=== PATIENT | female | born 1950 | race Caucasian/White ===

== ENCOUNTER 2017-10-15 19:21 | Emergency (ER) | payer OTHER ==
[~2017-10-15] VITALS: Ht 167.6 cm; Wt 90.7 kg
[2017-10-15 21:03] LABS: Basophils # (auto) 0.2 uL; Eosinophils # (auto) 0.1 uL; Eosinophils % (auto) 0.5 % (0.0-7.0); Mean Corpuscular Hemoglobin 23.4 pg (28.0-32.0); White Blood Cell 15.9 10^3/uL (4.4-10.8)
[2017-10-15 21:05] LABS: Basophils % (auto) 1.5 % (0.0-2.0); Hematocrit 34.1 % (36.0-46.0); Hemoglobin 10.8 g/dL (12.2-16.2); Lymphocytes # (auto) 1.8 uL; Mean Corpuscular Hgb Conc. 31.7 g/dL (32.0-36.0); Mean Corpuscular Volume 73.8 fL (80.0-100.0); Monocytes # (auto) 0.9 uL; Monocytes % (auto) 5.6 % (0.0-12.0); Neutrophils % (auto) 81.4 % (37.0-80.0); Platelet Count (auto) 350 10^3/uL (140-450); Red Blood Cells 4.62 10^6/uL (4.0-5.20); Red Cell Distribution Width 17.4 % (11.8-14.3)
[2017-10-15 21:44] LABS: Albumin 3.9 g/dL (3.4-5.0); BUN/Creatinine Ratio 11.5; Bilirubin, Total 0.6 mg/dL (0.2-1.0); Calcium 10.1 mg/dL (8.5-10.1); Potassium 3.6 mmol/L (3.5-5.1); Total Protein 8.5 g/dL (6.4-8.2)
[2017-10-16 02:46] VITALS: BP 160/99
[2017-10-16] MEDS ORDERED: NALBUPHINE HCL 10 MG/1ml INJECTION IV ONE (03:00)
[2017-10-16] MEDS ORDERED: SODIUM CHLORIDE 0.9% 1,000 ML IV ONE (03:00)
[2017-10-16] MEDS ORDERED: ONDANSETRON HCL 4 MG/2 ML VIAL IV ONE (03:00)
[2017-10-16] MEDS ORDERED: HYDROcodone-ACET 10/325MG TAB PO ONE (04:00)
== END 2017-10-16 05:42 | disposition home or self-care (01) ==
LOC: EDBD 19:21 → ER 19:24
DX: N20.0 Calculus of kidney (principal); K44.9 Diaphragmatic hernia without obstruction or gangrene; E11.9 Type 2 diabetes mellitus without complications; K21.9 Gastro-esophageal reflux disease without esophagitis; E78.5 Hyperlipidemia, unspecified
CPT/HCPCS: 36415; 74176; 80053; 82150; 83690; 84702; 85025; 96361; 96374; 96375; 99285; J2300; J2405; J7030

== ENCOUNTER 2019-08-10 10:13 | Emergency (ER) | payer OTHER ==
[~2019-08-10] VITALS: Ht 165.1 cm; Wt 77.1 kg
[2019-08-10 11:00] LABS: Basophils # (auto) 0 uL; Mean Corpuscular Hgb Conc. 30.9 g/dL (32.0-36.0); Monocytes # (auto) 0.4 uL; Neutrophils # (auto) 3.3 uL
[2019-08-10 11:02] LABS: Basophils % (auto) 0.9 % (0.0-2.0); Eosinophils # (auto) 0.1 uL; Eosinophils % (auto) 2.8 % (0.0-7.0); Hematocrit 34.2 % (36.0-46.0); Hemoglobin 10.6 g/dL (12.2-16.2); Lymphocytes # (auto) 1.2 uL; Lymphocytes % (auto) 23.4 % (10.0-50.0); Mean Corpuscular Hemoglobin 24.2 pg (28.0-32.0); Mean Corpuscular Volume 78.2 fL (80.0-100.0); Monocytes % (auto) 7.4 % (0.0-12.0); Neutrophils % (auto) 65.5 % (37.0-80.0); Nucleated Red Blood Cells % 0.2 %; Platelet Count (auto) 167 10^3/uL (140-450); Red Blood Cells 4.37 10^6/uL (4.0-5.20); Red Cell Distribution Width 16.5 % (11.8-14.3)
[2019-08-10 11:05] LABS: Albumin 2.9 g/dL (3.4-5.0); Calcium 8.9 mg/dL (8.5-10.1); Potassium 4.3 mmol/L (3.5-5.1)
[2019-08-10 11:08] LABS: BUN/Creatinine Ratio 14.7; Bilirubin, Total 0.3 mg/dL (0.2-1.0); Total Protein 7.1 g/dL (6.4-8.2)
[2019-08-10 12:53] LABS: Urine Bacteria NONE SEEN /hpf (None Seen); Urine Blood 1+ /uL (Negative); Urine Specific Gravity 1.014 (1.001-1.035); Urine WBC 682 /hpf (0 - 5); Urine WBC Clumps PRESENT /hpf (None Seen)
[2019-08-10] MEDS ORDERED: cefTRIAXone 1GM/50ML D5W 50 ML IV ONE (13:15)
[2019-08-10 15:00] VITALS: BP 102/45
== END 2019-08-10 16:47 | disposition home or self-care (01) ==
LOC: EDBD 10:13 → EDSEX 10:13 → ER 10:13 → EDUNIT# 10:13 → ER 16:47
DX: N39.0 Urinary tract infection, site not specified (principal); D64.9 Anemia, unspecified; R53.1 Weakness; I13.2 Hypertensive heart and chronic kidney disease with heart failure and with stage 5 chronic kidney disease, or end stage renal disease; E11.22 Type 2 diabetes mellitus with diabetic chronic kidney disease; N18.6 End stage renal disease; I50.9 Heart failure, unspecified; K21.9 Gastro-esophageal reflux disease without esophagitis; E78.5 Hyperlipidemia, unspecified
CPT/HCPCS: 36415; 71045; 80053; 81001; 83735; 84484; 85025; 96365; 96366; 99285; J0696; J7030

== ENCOUNTER 2021-03-17 11:54 | Inpatient (IN) | payer MEDICARE, OTHER ==
[~2021-03-17] VITALS: Ht 170.2 cm; Wt 99.0 kg
[2021-03-17 12:56] LABS: Basophils # (auto) 0 10 ^3/uL (0-0.2); Eosinophils # (auto) 0.2 10 ^3/uL (0-0.8); Eosinophils % (auto) 2.9 % (0.0-7.0); Hematocrit 38.1 % (36.0-46.0); Red Blood Cells 4.77 10^6/uL (4.0-5.20)
[2021-03-17 12:58] LABS: Basophils % (auto) 0.6 % (0.0-2.0); Hemoglobin 12.5 g/dL (12.2-16.2); Lymphocytes # (auto) 1.4 10 ^3/uL (0.4-5.4); Mean Corpuscular Hemoglobin 26.2 pg (28.0-32.0); Mean Corpuscular Hgb Conc. 32.9 g/dL (32.0-36.0); Mean Corpuscular Volume 79.7 fL (80.0-100.0); Monocytes # (auto) 0.5 10 ^3/uL (0-1.3); Neutrophils # (auto) 3.6 10 ^3/uL (1.6-8.6); Neutrophils % (auto) 63.5 % (37.0-80.0); Nucleated Red Blood Cells % 0.1 %; Red Cell Distribution Width 16.1 % (11.8-14.3); White Blood Cell 5.6 10^3/uL (4.4-10.8)
[2021-03-17 13:14] LABS: Anion Gap 5 (5-15); Blood Urea Nitrogen 15 mg/dL (7-18); Calcium 8.5 mg/dL (8.5-10.1); Carbon Dioxide 26 mmol/L (21-32); Chloride 101 mmol/L (98-107); Glucose 266 mg/dL (74-106); Magnesium 2.1 mg/dL (1.6-2.6); Potassium 3.9 mmol/L (3.5-5.1); Sodium 132 mmol/L (136-145)
[2021-03-17 13:20] LABS: Alanine Aminotransferase 45 U/L (13-56); Alkaline Phosphatase 85 U/L (45-117); Aspartate Aminotransferase 27 U/L (15-37); BUN/Creatinine Ratio 28.8; Bilirubin, Total 0.3 mg/dL (0.2-1.0); GFR African American 150 mL/min; GFR Non-African American 124 mL/min; Total Protein 6.8 g/dL (6.4-8.2)
[2021-03-17 14:21] LABS: Urine Bacteria NONE SEEN /hpf (None Seen); Urine Blood Negative /uL (Negative); Urine Specific Gravity 1.017 (1.001-1.035); Urine WBC 1 /hpf (0 - 5)
[2021-03-17] MEDS ORDERED: ONDANSETRON HCL 4 MG/2 ML VIAL IV ONE (14:45)
[2021-03-17] MEDS ORDERED: MORPHINE SULFATE 4 MG/ML SYR/VIAL IV ONE (14:45)
[2021-03-17] MEDS ORDERED: MORPHINE SULFATE INJECTION 2 MG/ML SYRG IV PRN (16:30)
[2021-03-17] MEDS ORDERED: NITROGLYCERIN 0.4 MG SL TAB SL PRN (16:30)
[2021-03-17] MEDS ORDERED: ACETAMINOPHEN 500 MG TAB PO PRN (16:30)
[2021-03-17] MEDS ORDERED: ONDANSETRON HCL 4 MG/2 ML VIAL IV PRN (16:30)
[2021-03-17] MEDS ORDERED: DEXTROSE (50%) 50ML SYRG IV PRN (16:30)
[2021-03-17] MEDS ORDERED: ALBUTEROL SULF 2.5 MG/0.5ML(0.5%) NEB SOLN NEB PRN (16:30)
[2021-03-17] MEDS ORDERED: IPRATROPIUM BROM 0.5 MG/2.5ML INH SOL NEB PRN (16:30)
[2021-03-17] MEDS ORDERED: DOCUSATE SOD 100 MG CAP PO PRN (16:30)
[2021-03-17] MEDS ORDERED: SODIUM CHLORIDE 0.9% 1,000 ML IV ONE (16:30)
[2021-03-17] MEDS ORDERED: IOHEXOL 300 MG/ML 100ML BOTTLE IJ ONE (17:02)
[2021-03-17] MEDS: InsuLIN REG 1unit/0.01ml Soln (100units/ml) SC SCH (19:30)
[2021-03-17] MEDS: ACCU-CHEK COMFORT CURVE STRIP VI SCH (19:33)
[2021-03-17] MEDS: MORPHINE SULFATE INJECTION 2 MG/ML SYRG IV PRN (20:12)
[2021-03-18 01:23] VITALS: BP 133/68
[2021-03-18] MEDS: ACCU-CHEK COMFORT CURVE STRIP VI SCH ×5 (03:49→22:49)
[2021-03-18] MEDS: InsuLIN REG 1unit/0.01ml Soln (100units/ml) SC SCH ×5 (04:30→22:00)
[2021-03-18 05:30] VITALS: BP 157/73
[2021-03-18 09:00] VITALS: BP 152/67
[2021-03-18] MEDS: levETIRAcetam 500 MG TAB PO SCH ×2 (09:43→22:54)
[2021-03-18] MEDS: HYDROcodone-ACET 5/325MG TAB PO PRN ×2 (09:43→20:28)
[2021-03-18] MEDS: MORPHINE SULFATE INJECTION 2 MG/ML SYRG IV PRN ×2 (11:00→15:35)
[2021-03-18 12:37] VITALS: BP 154/61
[2021-03-18 17:00] VITALS: BP 160/77
[2021-03-18] MEDS ORDERED: hydrALAZINE HCL 20 MG/ML VL IV PRN (17:15)
[2021-03-18] MEDS ORDERED: AML5T PO (17:34)
[2021-03-18] MEDS: amLODIPine BESYLATE 5 MG TAB PO SCH (18:25)
[2021-03-18] MEDS ORDERED: LEVE500T32 PO (20:07)
[2021-03-18] MEDS ORDERED: METO10TA3 PO (20:07)
[2021-03-18] MEDS ORDERED: SUCR1TAB PO (20:07)
[2021-03-18] MEDS ORDERED: GLIP10TA9 PO (20:07)
[2021-03-18] MEDS ORDERED: INSLANTI SC (20:07)
[2021-03-18] MEDS ORDERED: AMIO200T4 GT (20:07)
[2021-03-18] MEDS ORDERED: CLON0.1T PO (20:07)
[2021-03-18] MEDS ORDERED: OMEP20TA PO (20:07)
[2021-03-18] MEDS ORDERED: AMLO-489 PO (20:07)
[2021-03-18] MEDS ORDERED: ALPR0.25 GT (20:07)
[2021-03-18] MEDS ORDERED: BISM262C44 PO (20:08)
[2021-03-18] MEDS ORDERED: ACET-1156 PO (20:08)
[2021-03-18] MEDS ORDERED: DIPH25TA83 PO (20:08)
[2021-03-18 22:00] VITALS: BP 163/62
[2021-03-19 05:00] VITALS: BP 159/72
[2021-03-19] MEDS: ACCU-CHEK COMFORT CURVE STRIP VI SCH ×2 (07:00→11:30)
[2021-03-19] MEDS: InsuLIN REG 1unit/0.01ml Soln (100units/ml) SC SCH ×2 (07:00→11:30)
[2021-03-19 08:00] VITALS: BP 153/82
[2021-03-19 09:00] VITALS: BP 153/82
[2021-03-19] MEDS: levETIRAcetam 500 MG TAB PO SCH (09:17)
[2021-03-19] MEDS: amLODIPine BESYLATE 5 MG TAB PO SCH (09:19)
[2021-03-19] MEDS: HYDROcodone-ACET 5/325MG TAB PO PRN (09:21)
[2021-03-19] MEDS ORDERED: LISINOPRIL 20 MG TAB PO SCH (10:00)
[2021-03-20] MEDS ORDERED: PNEUMOCOCCAL VACC POLYS 25 MCG/0.5 ML VIAL IM ONE (10:00)
[2021-03-20] MEDS ORDERED: INFLUENZA QUAD 2020-2021 0.5 ML SYRG IM ONE (10:00)
== END 2021-03-19 13:15 | disposition home health service (06) | DRG 309 ==
LOC: EDBD 11:54 → ER 11:55 → TELE 16:36 → TELE-WESTW 22:50
PROVIDERS: ADMIT Nurse Practitioner Acute Care; ATTEND Internal Medicine
DX: I49.8 Other specified cardiac arrhythmias (principal); D68.59 Other primary thrombophilia; E87.1 Hypo-osmolality and hyponatremia; I48.92 Unspecified atrial flutter; E11.65 Type 2 diabetes mellitus with hyperglycemia; J44.9 Chronic obstructive pulmonary disease, unspecified; K21.9 Gastro-esophageal reflux disease without esophagitis; G40.909 Epilepsy, unspecified, not intractable, without status epilepticus; E11.22 Type 2 diabetes mellitus with diabetic chronic kidney disease; E66.9 Obesity, unspecified; E78.5 Hyperlipidemia, unspecified; I11.0 Hypertensive heart disease with heart failure; I48.0 Paroxysmal atrial fibrillation; R51.9 Headache, unspecified; Z20.822 Contact with and (suspected) exposure to COVID-19; I50.9 Heart failure, unspecified; Z51.5 Encounter for palliative care; Z79.01 Long term (current) use of anticoagulants; Z74.01 Bed confinement status; Z79.4 Long term (current) use of insulin; Z80.9 Family history of malignant neoplasm, unspecified; Z68.34 Body mass index [BMI] 34.0-34.9, adult
CPT/HCPCS: 36415; 70450; 71045; 74177; 80053; 81001; 82962; 83036; 83735; 84443; 84484; 85025; 87426; 93005; 93306; 96361; 96374; 96375; G0378; J1815; J2405

== ENCOUNTER 2021-03-27 10:25 | Inpatient (IN) | payer OTHER ==
[~2021-03-27] VITALS: Ht 149.9 cm; Wt 88.9 kg
[~2021-03-27 10:25] MED LIST: ACET-1156 PO; ALPR0.25 GT; AML5T PO; BISM262C44 PO; DIPH25TA83 PO; GLIP10TA9 PO; INSLANTI SC; LEVE500T32 PO; METO10TA3 PO; OMEP20TA PO; SUCR1TAB PO
[2021-03-27] MEDS ORDERED: SODIUM CHLORIDE 0.9% 1,000 ML IV ONE (10:30)
[2021-03-27 11:27] LABS: Eosinophils # (auto) 0.2 10 ^3/uL (0-0.8); Mean Corpuscular Hemoglobin 25.6 pg (28.0-32.0); Monocytes # (auto) 0.5 10 ^3/uL (0-1.3); Nucleated Red Blood Cells % 0.1 %; White Blood Cell 5.9 10^3/uL (4.4-10.8)
[2021-03-27 11:28] LABS: Basophils # (auto) 0 10 ^3/uL (0-0.2); Basophils % (auto) 0.5 % (0.0-2.0); Eosinophils % (auto) 3.2 % (0.0-7.0); Hematocrit 37.7 % (36.0-46.0); Lymphocytes # (auto) 1.4 10 ^3/uL (0.4-5.4); Lymphocytes % (auto) 23.2 % (10.0-50.0); Mean Corpuscular Hgb Conc. 31.9 g/dL (32.0-36.0); Mean Corpuscular Volume 80.3 fL (80.0-100.0); Monocytes % (auto) 8.2 % (0.0-12.0); Neutrophils # (auto) 3.8 10 ^3/uL (1.6-8.6); Neutrophils % (auto) 64.9 % (37.0-80.0); Red Blood Cells 4.69 10^6/uL (4.0-5.20)
[2021-03-27 11:46] LABS: Albumin 2.7 g/dL (3.4-5.0); Anion Gap 7 (5-15); Blood Urea Nitrogen 11 mg/dL (7-18); Calcium 9.1 mg/dL (8.5-10.1); Carbon Dioxide 29 mmol/L (21-32); Chloride 99 mmol/L (98-107); GFR African American 157 mL/min; GFR Non-African American 130 mL/min; Glucose 198 mg/dL (74-106); INR 0.98 (0.9-1.15); Partial Thromboplastin Time 23.1 sec (23.6-33.0); Sodium 135 mmol/L (136-145)
[2021-03-27 11:54] LABS: Alanine Aminotransferase 47 U/L (13-56); Alkaline Phosphatase 80 U/L (45-117); Aspartate Aminotransferase 36 U/L (15-37); Bilirubin, Total 0.3 mg/dL (0.2-1.0)
[2021-03-27 14:53] LABS: Urine Bacteria NONE SEEN /hpf (None Seen); Urine Blood TRACE /uL (Negative); Urine Specific Gravity 1.015 (1.001-1.035); Urine WBC 592 /hpf (0 - 5)
[2021-03-27] MEDS ORDERED: ONDANSETRON HCL 4 MG/2 ML VIAL IV ONE (15:30)
[2021-03-27] MEDS ORDERED: MORPHINE SULFATE 4 MG/ML SYR/VIAL IV ONE (15:30)
[2021-03-27] MEDS ORDERED: ALBUMIN 25% 50 ML IV ONE (22:30)
[2021-03-27] MEDS ORDERED: DEXTROSE (50%) 50ML SYRG IV PRN (22:30)
[2021-03-27] MEDS ORDERED: ACETAMINOPHEN 325 MG TAB PO PRN (22:30)
[2021-03-27] MEDS ORDERED: DOCUSATE SOD 100 MG CAP PO PRN (22:30)
[2021-03-27] MEDS ORDERED: HYDROcodone-ACET 5/325MG TAB PO PRN (22:30)
[2021-03-27] MEDS: MORPHINE SULFATE 4 MG/ML SYR/VIAL IV PRN (23:26)
[2021-03-27] MEDS ORDERED: MORPHINE SULFATE INJECTION 2 MG/ML SYRG IV PRN (23:45)
[2021-03-27] MEDS ORDERED: NITROGLYCERIN 0.4 MG SL TAB SL PRN (23:45)
[2021-03-28 01:25] VITALS: BP 117/47
[2021-03-28] MEDS ORDERED: PNEUMOCOCCAL VACC POLYS 25 MCG/0.5 ML VIAL IM ONE (02:00)
[2021-03-28] MEDS ORDERED: INFLUENZA QUAD 2020-2021 0.5 ML SYRG IM ONE (02:00)
[2021-03-28 05:00] VITALS: BP 130/46
[2021-03-28 05:36] LABS: Basophils % (auto) 0.8 % (0.0-2.0); Eosinophils # (auto) 0.2 10 ^3/uL (0-0.8); Lymphocytes # (auto) 1.7 10 ^3/uL (0.4-5.4); Neutrophils # (auto) 3.8 10 ^3/uL (1.6-8.6); White Blood Cell 6.3 10^3/uL (4.4-10.8)
[2021-03-28 05:42] LABS: Basophils # (auto) 0.1 10 ^3/uL (0-0.2); Eosinophils % (auto) 2.7 % (0.0-7.0); Hematocrit 35.8 % (36.0-46.0); Hemoglobin 11.7 g/dL (12.2-16.2); Mean Corpuscular Hemoglobin 26.3 pg (28.0-32.0); Mean Corpuscular Hgb Conc. 32.6 g/dL (32.0-36.0); Mean Corpuscular Volume 80.6 fL (80.0-100.0); Monocytes # (auto) 0.6 10 ^3/uL (0-1.3); Monocytes % (auto) 9.1 % (0.0-12.0); Neutrophils % (auto) 60.4 % (37.0-80.0); Red Blood Cells 4.44 10^6/uL (4.0-5.20); Red Cell Distribution Width 16.3 % (11.8-14.3)
[2021-03-28 06:02] LABS: Potassium 4.3 mmol/L (3.5-5.1)
[2021-03-28] MEDS: InsuLIN REG 1unit/0.01ml Soln (100units/ml) SC SCH ×4 (06:12→21:11)
[2021-03-28] MEDS: SODIUM CHLOR 0.9% PF (SALINE LOCK) 10ML VIAL/SYR IV SCH ×3 (06:12→20:59)
[2021-03-28] MEDS: ACCU-CHEK COMFORT CURVE STRIP VI SCH ×4 (06:12→21:00)
[2021-03-28] MEDS: MORPHINE SULFATE 4 MG/ML SYR/VIAL IV PRN ×7 (06:13→22:41)
[2021-03-28 06:15] LABS: Albumin 2.9 g/dL (3.4-5.0); Bilirubin, Total 0.2 mg/dL (0.2-1.0); Calcium 9.3 mg/dL (8.5-10.1); Total Protein 6.6 g/dL (6.4-8.2)
[2021-03-28] MEDS: FLEET ENEMA(ADULT) 135 ML PR ONE ×2 (07:00→10:33)
[2021-03-28 09:00] VITALS: BP 129/67
[2021-03-28] MEDS: cefTRIAXone 1GM/50ML D5W 50 ML IV SCH (09:25)
[2021-03-28] MEDS: ZINC SULFATE 220mg CAP or TAB PO SCH (09:26)
[2021-03-28] MEDS: FAMOTIDINE (10MG/ML) 2ML VL IV SCH ×2 (09:26→20:59)
[2021-03-28] MEDS: MULTIPLE VITAMIN TAB PO SCH (09:26)
[2021-03-28] MEDS: HEPARIN SODIUM (PORCINE) 5000 UNITS/ML 1ML VIAL SC SCH ×2 (09:27→21:00)
[2021-03-28] MEDS: ASCORBIC ACID 500 MG TAB PO SCH ×2 (09:27→20:59)
[2021-03-28 13:00] VITALS: BP 150/69
[2021-03-28] MEDS: LEVOTHYROXINE SODIUM 88 MCG TAB PO SCH (15:15)
[2021-03-28 16:35] VITALS: BP 147/57
[2021-03-28 22:00] VITALS: BP 118/47
[2021-03-29] MEDS: MORPHINE SULFATE 4 MG/ML SYR/VIAL IV PRN ×5 (03:47→20:42)
[2021-03-29 05:00] VITALS: BP 122/60
[2021-03-29] MEDS: ACCU-CHEK COMFORT CURVE STRIP VI SCH ×4 (06:10→21:18)
[2021-03-29] MEDS: InsuLIN REG 1unit/0.01ml Soln (100units/ml) SC SCH ×4 (06:10→21:19)
[2021-03-29] MEDS: SODIUM CHLOR 0.9% PF (SALINE LOCK) 10ML VIAL/SYR IV SCH ×3 (06:10→22:00)
[2021-03-29] MEDS: LEVOTHYROXINE SODIUM 88 MCG TAB PO SCH (06:10)
[2021-03-29] MEDS: cefTRIAXone 1GM/50ML D5W 50 ML IV SCH (08:23)
[2021-03-29 09:00] VITALS: BP 167/78
[2021-03-29] MEDS: ZINC SULFATE 220mg CAP or TAB PO SCH (09:44)
[2021-03-29] MEDS: HEPARIN SODIUM (PORCINE) 5000 UNITS/ML 1ML VIAL SC SCH ×2 (09:44→21:25)
[2021-03-29] MEDS: MULTIPLE VITAMIN TAB PO SCH (09:44)
[2021-03-29] MEDS: FAMOTIDINE (10MG/ML) 2ML VL IV SCH ×2 (09:44→21:17)
[2021-03-29] MEDS: ASCORBIC ACID 500 MG TAB PO SCH ×2 (09:45→21:17)
[2021-03-29] MEDS: ONDANSETRON HCL 4 MG/2 ML VIAL IV PRN ×3 (09:52→20:42)
[2021-03-29 13:00] VITALS: BP 162/81
[2021-03-29 17:04] VITALS: BP 134/63
[2021-03-29 22:00] VITALS: BP 143/62
[2021-03-30 05:00] VITALS: BP 159/98
[2021-03-30] MEDS: SODIUM CHLOR 0.9% PF (SALINE LOCK) 10ML VIAL/SYR IV SCH (06:00)
[2021-03-30] MEDS: LEVOTHYROXINE SODIUM 88 MCG TAB PO SCH (06:33)
[2021-03-30] MEDS: ACCU-CHEK COMFORT CURVE STRIP VI SCH ×2 (06:33→11:30)
[2021-03-30] MEDS: InsuLIN REG 1unit/0.01ml Soln (100units/ml) SC SCH ×2 (06:34→11:30)
[2021-03-30] MEDS: ONDANSETRON HCL 4 MG/2 ML VIAL IV PRN ×2 (06:35→10:29)
[2021-03-30] MEDS: MORPHINE SULFATE 4 MG/ML SYR/VIAL IV PRN ×2 (06:35→10:29)
[2021-03-30 09:00] VITALS: BP 145/73
[2021-03-30] MEDS: HEPARIN SODIUM (PORCINE) 5000 UNITS/ML 1ML VIAL SC SCH (10:00)
[2021-03-30 10:03] LABS: Free T4 (Free Thyroxine) 1.33 ng/dL (0.89-1.76)
[2021-03-30 10:05] LABS: Free T3 2.7 pg/mL (2.3-4.2)
[2021-03-30] MEDS: ASCORBIC ACID 500 MG TAB PO SCH (10:08)
[2021-03-30] MEDS: MULTIPLE VITAMIN TAB PO SCH (10:08)
[2021-03-30] MEDS: ZINC SULFATE 220mg CAP or TAB PO SCH (10:08)
[2021-03-30] MEDS: FAMOTIDINE (10MG/ML) 2ML VL IV SCH (10:09)
[2021-03-30] MEDS: cefTRIAXone 1GM/50ML D5W 50 ML IV SCH (10:09)
[2021-03-30 13:00] VITALS: BP 155/84
== END 2021-03-30 13:06 | disposition home health service (06) | DRG 308 ==
LOC: EDBD 10:25 → ER 10:25 → TELE 23:38 → TELE-CENTR 03-28 00:45
PROVIDERS: ADMIT Nurse Practitioner Family; ATTEND Internal Medicine
DX: R00.1 Bradycardia, unspecified (principal); L89.153 Pressure ulcer of sacral region, stage 3; G82.20 Paraplegia, unspecified; N39.0 Urinary tract infection, site not specified; E03.9 Hypothyroidism, unspecified; E11.65 Type 2 diabetes mellitus with hyperglycemia; Z20.822 Contact with and (suspected) exposure to COVID-19; E66.01 Morbid (severe) obesity due to excess calories; E78.5 Hyperlipidemia, unspecified; I50.9 Heart failure, unspecified; I48.91 Unspecified atrial fibrillation; F41.9 Anxiety disorder, unspecified; K21.9 Gastro-esophageal reflux disease without esophagitis; J44.9 Chronic obstructive pulmonary disease, unspecified; K74.60 Unspecified cirrhosis of liver; L89.149 Pressure ulcer of left lower back, unspecified stage; Z74.01 Bed confinement status; Z80.0 Family history of malignant neoplasm of digestive organs; Z82.49 Family history of ischemic heart disease and other diseases of the circulatory system; Z68.39 Body mass index [BMI] 39.0-39.9, adult; T46.2X5A Adverse effect of other antidysrhythmic drugs, initial encounter
CPT/HCPCS: 36415; 71045; 74176; 80053; 81001; 82140; 82962; 83605; 83880; 84439; 84443; 84481; 84484; 85025; 85610; 85730; 87040; 87081; 87086; 87088; 87186; 87426; 93005; 96361; 96365; 96375; G0378; J0696; J1815; J2405; J3490

== ENCOUNTER 2022-01-14 12:58 | Inpatient (IN) | payer OTHER, MEDICAID ==
[~2022-01-14] VITALS: Ht 154.9 cm; Wt 86.7 kg
[2022-01-14] MEDS ORDERED: SODIUM CHLORIDE 0.9% 1,000 ML IV ONE (13:00)
[2022-01-14] MEDS ORDERED: cefTRIAXone 1GM/50ML D5W 50 ML IV ONE (13:00)
[2022-01-14 13:58] LABS: Hemoglobin 11.3 g/dL (12.2-16.2); White Blood Cell 5.7 10^3/uL (4.4-10.8)
[2022-01-14 14:00] LABS: Hematocrit 35.9 % (36.0-46.0); Mean Corpuscular Hemoglobin 23.9 pg (28.0-32.0); Mean Corpuscular Hgb Conc. 31.6 g/dL (32.0-36.0); Mean Corpuscular Volume 75.6 fL (80.0-100.0); Red Blood Cells 4.75 10^6/uL (4.0-5.20)
[2022-01-14 14:02] LABS: Basophils % (manual) 0 (0.0-2.0); Blast Cells 0; Eosinophils % (manual) 0 (0-7); Metamyelocytes % 0; Myelocytes % 0; Promyelocytes % 0; Reactive Lymphocytes 0
[2022-01-14 14:04] LABS: Albumin 2.4 g/dL (3.4-5.0); Calcium 8.3 mg/dL (8.5-10.1); Potassium 5.3 mmol/L (3.5-5.1)
[2022-01-14 14:08] LABS: BUN/Creatinine Ratio 15.5; Bilirubin, Total 0.4 mg/dL (0.2-1.0); Total Protein 6.6 g/dL (6.4-8.2)
[2022-01-14 15:47] LABS: Urine Bacteria FEW /hpf (None Seen); Urine Blood 1+ /uL (Negative); Urine Specific Gravity 1.017 (1.001-1.035); Urine WBC 1549 /hpf (0 - 5); Urine WBC Clumps PRESENT /hpf (None Seen)
[2022-01-14 16:11] LABS: Band Neutrophils % (manual) 4; Lymphocytes % (manual) 20 (10.0-50.0); Monocytes % (manual) 10 (0-12)
[2022-01-14] MEDS ORDERED: SODIUM ZIRCONIUM CYCL 10 GM PAK PO ONE (17:00)
[2022-01-14] MEDS ORDERED: CALCIUM GLUC 1,000mg/50ml-NS 50 ML IV ONE (17:00)
[2022-01-14] MEDS ORDERED: FUROSEMIDE 20 MG/2 ML VIAL IV ONE (17:00)
[2022-01-14] MEDS ORDERED: ALBUTEROL SULF 2.5 MG/0.5ML(0.5%) NEB SOLN NEB ONE (17:00)
[2022-01-14] MEDS ORDERED: SODIUM BICARBONATE 8.4% INJ 50ML SYRINGE IV ONE (17:00)
[2022-01-14] MEDS ORDERED: MORPHINE SULFATE INJ 2 MG/ml SYRG IV PRN (17:15)
[2022-01-14] MEDS ORDERED: DEXTROSE (50%) 50ML SYRG IV PRN (17:15)
[2022-01-14] MEDS ORDERED: NITROGLYCERIN 0.4 MG SL TAB SL PRN (17:15)
[2022-01-14] MEDS ORDERED: ACETAMINOPHEN 500 MG TAB PO PRN (17:15)
[2022-01-14] MEDS ORDERED: FUROSEMIDE 40 MG/4 ML VIAL IV ONE (17:30)
[2022-01-14] MEDS: MORPHINE SULFATE INJ 2 MG/ml SYRG IV PRN (18:10)
[2022-01-14] MEDS: BUDESONIDE (INHALATION) 180 MCG IH IN SCH (18:35)
[2022-01-14 18:59] LABS: Albumin 2.6 g/dL (3.4-5.0); Calcium 8.7 mg/dL (8.5-10.1); Magnesium 1.4 mg/dL (1.6-2.6)
[2022-01-14 19:07] LABS: Thyroid Stimulating Hormone 2.18 uIU/mL (0.358-3.74)
[2022-01-14 19:08] LABS: BUN/Creatinine Ratio 15.5; Bilirubin, Total 0.2 mg/dL (0.2-1.0); CRP High Sensitivity 3.03 mg/dL (< 0.3); Total Protein 6.9 g/dL (6.4-8.2)
[2022-01-14] MEDS: ALBUTEROL SULF HFA 90MCG INH 200DOSE IN PRN (20:34)
[2022-01-14] MEDS ORDERED: POTASSIUM CHL 20 Meq TABLET PO ONE (21:15)
[2022-01-14] MEDS ORDERED: POTASSIUM CHL 20MEQ/100ML 100 ML IV ONE (21:15)
[2022-01-14] MEDS: ONDANSETRON HCL 4 MG/2 ML VIAL IV PRN (21:37)
[2022-01-14] MEDS: levETIRAcetam 500 MG TAB PO SCH (21:37)
[2022-01-14] MEDS: ACCU-CHEK COMFORT CURVE STRIP VI SCH (22:00)
[2022-01-14] MEDS: InsuLIN REG 1unit/0.01ml Soln (100units/ml) SC SCH (22:29)
[2022-01-14] MEDS ORDERED: CLON0.1T PO (22:48)
[2022-01-14 23:23] VITALS: BP 155/62
[2022-01-15] MEDS: MORPHINE SULFATE INJ 2 MG/ml SYRG IV PRN ×5 (00:31→22:23)
[2022-01-15 00:53] VITALS: BP 155/66
[2022-01-15 05:48] VITALS: BP 158/70
[2022-01-15 05:55] LABS: Hematocrit 33.5 % (36.0-46.0); Hemoglobin 10.6 g/dL (12.2-16.2); Mean Corpuscular Hemoglobin 23.9 pg (28.0-32.0); Mean Corpuscular Hgb Conc. 31.7 g/dL (32.0-36.0); Mean Corpuscular Volume 75.5 fL (80.0-100.0); Red Blood Cells 4.43 10^6/uL (4.0-5.20); Red Cell Distribution Width 15.9 % (11.8-14.3); White Blood Cell 5.6 10^3/uL (4.4-10.8)
[2022-01-15] MEDS: ONDANSETRON HCL 4 MG/2 ML VIAL IV PRN ×3 (05:56→20:23)
[2022-01-15 06:02] LABS: Basophils % (manual) 0 (0.0-2.0); Blast Cells 0; Promyelocytes % 0; Reactive Lymphocytes 0
[2022-01-15 06:03] LABS: Albumin 2.5 g/dL (3.4-5.0); Calcium 8.3 mg/dL (8.5-10.1); Potassium 3.6 mmol/L (3.5-5.1)
[2022-01-15 06:09] LABS: BUN/Creatinine Ratio 17.6; Bilirubin, Total 0.2 mg/dL (0.2-1.0)
[2022-01-15] MEDS: InsuLIN REG 1unit/0.01ml Soln (100units/ml) SC SCH ×4 (06:32→22:21)
[2022-01-15] MEDS: ACCU-CHEK COMFORT CURVE STRIP VI SCH ×4 (06:32→22:16)
[2022-01-15] MEDS: BUDESONIDE (INHALATION) 180 MCG IH IN SCH ×2 (06:39→22:02)
[2022-01-15] MEDS: ALBUTEROL SULF HFA 90MCG INH 200DOSE IN PRN ×2 (06:40→22:02)
[2022-01-15 07:34] LABS: Band Neutrophils % (manual) 6; Eosinophils % (manual) 1 (0-7); Lymphocytes % (manual) 25 (10.0-50.0); Metamyelocytes % 1; Monocytes % (manual) 8 (0-12); Myelocytes % 2
[2022-01-15 08:59] VITALS: BP 153/56
[2022-01-15] MEDS ORDERED: cefTRIAXone 1GM/50ML D5W 50 ML IV SCH (09:00)
[2022-01-15] MEDS ORDERED: AZITHROMYCIN 500MG/ 250ML 250 ML IV SCH (10:00)
[2022-01-15] MEDS ORDERED: ENOXAPARIN SOD 40 MG/0.4 ML SYRINGE SC SCH (10:00)
[2022-01-15] MEDS: levETIRAcetam 500 MG TAB PO SCH ×2 (10:21→22:15)
[2022-01-15] MEDS: DexAMETHasone SOD PHOS 10MG/1ML VIAL INJ IV SCH (10:21)
[2022-01-15] MEDS: amLODIPine BESYLATE 5 MG TAB PO SCH (10:22)
[2022-01-15] MEDS: ASCORBIC ACID 1,000 MG TAB PO SCH (10:22)
[2022-01-15] MEDS: CHOLECALCIFEROL (VITD3) 2,000 UNIT CAP/TAB PO SCH (10:22)
[2022-01-15] MEDS ORDERED: levoFLOXacin 500MG 100 ML IV SCH (12:00)
[2022-01-15] MEDS ORDERED: VANCOMYCIN PER PHARMACY 0 MG IV SCH (12:30)
[2022-01-15] MEDS ORDERED: VANCOMYCIN 1GM/250ML 250 ML IV ONE (12:30)
[2022-01-15 13:00] VITALS: BP 164/72
[2022-01-15] MEDS ORDERED: CLINDAMYCIN 600MG IV 50 ML IV SCH (14:00)
[2022-01-15 17:00] VITALS: BP 161/48
[2022-01-15] MEDS: SUCRALFATE 1 GM/10 ML ORAL SUSP PO SCH ×2 (17:45→22:15)
[2022-01-15] MEDS ORDERED: IOHEXOL 350 MG/ML 100ML IJ ONE (18:46)
[2022-01-15 22:00] VITALS: BP_SYST 165; BP_SYST 183; BP_DIAS 54; BP_DIAS 73
[2022-01-15] MEDS: PANTOPRAZOLE 40 MG TAB PO SCH (22:15)
[2022-01-16] MEDS: VANCOMYCIN 1GM/250ML 250 ML IV SCH ×3 (00:08→20:16)
[2022-01-16 05:00] VITALS: BP_SYST 158; BP_SYST 183; BP_DIAS 73; BP_DIAS 75
[2022-01-16] MEDS: ACCU-CHEK COMFORT CURVE STRIP VI SCH ×4 (06:29→22:07)
[2022-01-16] MEDS: SUCRALFATE 1 GM/10 ML ORAL SUSP PO SCH ×4 (06:29→21:21)
[2022-01-16] MEDS: InsuLIN REG 1unit/0.01ml Soln (100units/ml) SC SCH ×4 (06:31→22:08)
[2022-01-16] MEDS ORDERED: IOHEXOL 350 MG/ML 100ML IJ ONE (08:39)
[2022-01-16 09:18] VITALS: BP 171/84
[2022-01-16] MEDS: cefTRIAXone 1GM/50ML D5W 50 ML IV SCH (10:00)
[2022-01-16] MEDS: DexAMETHasone SOD PHOS 10MG/1ML VIAL INJ IV SCH (10:00)
[2022-01-16] MEDS: ASCORBIC ACID 1,000 MG TAB PO SCH (10:00)
[2022-01-16] MEDS: PANTOPRAZOLE 40 MG TAB PO SCH ×2 (10:00→21:21)
[2022-01-16] MEDS: CHOLECALCIFEROL (VITD3) 2,000 UNIT CAP/TAB PO SCH (10:00)
[2022-01-16] MEDS: amLODIPine BESYLATE 5 MG TAB PO SCH (10:00)
[2022-01-16] MEDS: levETIRAcetam 500 MG TAB PO SCH ×2 (10:00→21:21)
[2022-01-16] MEDS: ENOXAPARIN SOD 40 MG/0.4 ML SYRINGE SC SCH (10:00)
[2022-01-16] MEDS: ALBUTEROL SULF HFA 90MCG INH 200DOSE IN PRN ×2 (10:36→19:15)
[2022-01-16] MEDS: BUDESONIDE (INHALATION) 180 MCG IH IN SCH ×2 (10:36→19:15)
[2022-01-16] MEDS: MORPHINE SULFATE INJ 2 MG/ml SYRG IV PRN ×2 (10:45→21:33)
[2022-01-16 13:06] VITALS: BP 126/72
[2022-01-16 15:16] LABS: Hemoglobin 11.5 g/dL (12.2-16.2); Mean Corpuscular Hgb Conc. 30.6 g/dL (32.0-36.0); White Blood Cell 5.9 10^3/uL (4.4-10.8)
[2022-01-16 15:17] LABS: Hematocrit 37.4 % (36.0-46.0); Mean Corpuscular Hemoglobin 23.4 pg (28.0-32.0); Mean Corpuscular Volume 76.3 fL (80.0-100.0); Red Blood Cells 4.91 10^6/uL (4.0-5.20); Red Cell Distribution Width 16.4 % (11.8-14.3)
[2022-01-16 15:22] LABS: Basophils % (manual) 0 (0.0-2.0); Blast Cells 0; Eosinophils % (manual) 0 (0-7); Promyelocytes % 0; Reactive Lymphocytes 0
[2022-01-16 15:32] LABS: Calcium 8.5 mg/dL (8.5-10.1)
[2022-01-16 15:42] LABS: BUN/Creatinine Ratio 15.9; CRP High Sensitivity 1.32 mg/dL (< 0.3)
[2022-01-16 16:12] LABS: Band Neutrophils % (manual) 5; Lymphocytes % (manual) 12 (10.0-50.0); Metamyelocytes % 2; Monocytes % (manual) 3 (0-12); Myelocytes % 1
[2022-01-16 16:48] VITALS: BP 121/48
[2022-01-16] MEDS: ONDANSETRON HCL 4 MG/2 ML VIAL IV PRN (21:34)
[2022-01-16 22:00] VITALS: BP 151/61
[2022-01-17] MEDS: MORPHINE SULFATE INJ 2 MG/ml SYRG IV PRN ×4 (01:52→22:36)
[2022-01-17] MEDS: hydrALAZINE HCL 20 MG/ML VL IV PRN ×3 (02:28→22:52)
[2022-01-17 05:00] VITALS: BP 179/77
[2022-01-17] MEDS: VANCOMYCIN 1GM/250ML 250 ML IV SCH (06:00)
[2022-01-17] MEDS: ACCU-CHEK COMFORT CURVE STRIP VI SCH ×4 (06:28→21:11)
[2022-01-17] MEDS: InsuLIN REG 1unit/0.01ml Soln (100units/ml) SC SCH ×4 (06:30→21:20)
[2022-01-17] MEDS: SUCRALFATE 1 GM/10 ML ORAL SUSP PO SCH ×4 (06:36→21:10)
[2022-01-17 09:00] VITALS: BP 182/72
[2022-01-17 09:24] LABS: Hematocrit 37.3 % (36.0-46.0); Hemoglobin 11.5 g/dL (12.2-16.2); Mean Corpuscular Hemoglobin 23.5 pg (28.0-32.0); Mean Corpuscular Hgb Conc. 30.9 g/dL (32.0-36.0); Mean Corpuscular Volume 76.1 fL (80.0-100.0); Red Cell Distribution Width 15.6 % (11.8-14.3); White Blood Cell 7.6 10^3/uL (4.4-10.8)
[2022-01-17] MEDS: cefTRIAXone 1GM/50ML D5W 50 ML IV SCH (09:24)
[2022-01-17 09:25] LABS: CRP High Sensitivity 0.72 mg/dL (< 0.3); Calcium 9.1 mg/dL (8.5-10.1); Potassium 4.1 mmol/L (3.5-5.1)
[2022-01-17] MEDS: ONDANSETRON HCL 4 MG/2 ML VIAL IV PRN ×3 (09:25→22:30)
[2022-01-17 09:31] LABS: Basophils % (manual) 0 (0.0-2.0); Blast Cells 0; Metamyelocytes % 0; Myelocytes % 0; Promyelocytes % 0; Reactive Lymphocytes 0
[2022-01-17] MEDS: CHOLECALCIFEROL (VITD3) 2,000 UNIT CAP/TAB PO SCH (10:54)
[2022-01-17] MEDS: PANTOPRAZOLE 40 MG TAB PO SCH ×2 (10:54→21:10)
[2022-01-17] MEDS: ENOXAPARIN SOD 40 MG/0.4 ML SYRINGE SC SCH (10:55)
[2022-01-17] MEDS: ASCORBIC ACID 1,000 MG TAB PO SCH (10:55)
[2022-01-17] MEDS: levETIRAcetam 500 MG TAB PO SCH ×2 (10:55→21:10)
[2022-01-17] MEDS: DexAMETHasone SOD PHOS 10MG/1ML VIAL INJ IV SCH (10:56)
[2022-01-17] MEDS: amLODIPine BESYLATE 5 MG TAB PO SCH (11:02)
[2022-01-17] MEDS: ALBUTEROL SULF HFA 90MCG INH 200DOSE IN PRN ×2 (11:34→20:01)
[2022-01-17] MEDS: BUDESONIDE (INHALATION) 180 MCG IH IN SCH ×2 (11:34→20:01)
[2022-01-17 11:58] LABS: Band Neutrophils % (manual) 2; Eosinophils % (manual) 1 (0-7); Lymphocytes % (manual) 32 (10.0-50.0); Monocytes % (manual) 15 (0-12)
[2022-01-17 13:00] VITALS: BP 167/67
[2022-01-17] MEDS ORDERED: VANCOMYCIN 1GM/250ML 250 ML IV SCH (14:30)
[2022-01-17 17:00] VITALS: BP 129/60
[2022-01-17 22:00] VITALS: BP 163/61
[2022-01-18] VITALS (7 sets, daily range): BP systolic 146–184; BP diastolic 61–82
[2022-01-18] MEDS: hydrALAZINE HCL 20 MG/ML VL IV PRN (06:06)
[2022-01-18] MEDS: ACCU-CHEK COMFORT CURVE STRIP VI SCH ×4 (06:24→21:07)
[2022-01-18] MEDS: SUCRALFATE 1 GM/10 ML ORAL SUSP PO SCH ×4 (06:24→21:06)
[2022-01-18] MEDS: InsuLIN REG 1unit/0.01ml Soln (100units/ml) SC SCH ×4 (06:29→22:59)
[2022-01-18 06:58] LABS: Basophils # (auto) 0.1 10 ^3/uL (0-0.2); Eosinophils # (auto) 0 10 ^3/uL (0-0.8); Mean Corpuscular Volume 75.8 fL (80.0-100.0); Monocytes # (auto) 0.9 10 ^3/uL (0-1.3); Neutrophils % (auto) 72.8 % (37.0-80.0)
[2022-01-18 07:01] LABS: Basophils % (auto) 0.6 % (0.0-2.0); Eosinophils % (auto) 0.2 % (0.0-7.0); Hematocrit 33.7 % (36.0-46.0); Hemoglobin 10.9 g/dL (12.2-16.2); Lymphocytes # (auto) 1.6 10 ^3/uL (0.4-5.4); Mean Corpuscular Hemoglobin 24.5 pg (28.0-32.0); Mean Corpuscular Hgb Conc. 32.4 g/dL (32.0-36.0); Monocytes % (auto) 9.4 % (0.0-12.0); Nucleated Red Blood Cells % 0.3 %; Red Blood Cells 4.45 10^6/uL (4.0-5.20); White Blood Cell 9.6 10^3/uL (4.4-10.8)
[2022-01-18 07:14] LABS: Albumin 2.7 g/dL (3.4-5.0); Calcium 9.1 mg/dL (8.5-10.1); Potassium 3.9 mmol/L (3.5-5.1)
[2022-01-18 07:19] LABS: BUN/Creatinine Ratio 24.3; Bilirubin, Total 0.3 mg/dL (0.2-1.0); CRP High Sensitivity 0.38 mg/dL (< 0.3); Total Protein 6.6 g/dL (6.4-8.2)
[2022-01-18] MEDS: VANCOMYCIN 1GM/250ML 250 ML IV SCH ×2 (08:02→23:00)
[2022-01-18] MEDS: ONDANSETRON HCL 4 MG/2 ML VIAL IV PRN (08:03)
[2022-01-18] MEDS: MORPHINE SULFATE INJ 2 MG/ml SYRG IV PRN ×2 (08:03→20:50)
[2022-01-18] MEDS: ENOXAPARIN SOD 40 MG/0.4 ML SYRINGE SC SCH (10:00)
[2022-01-18] MEDS: amLODIPine BESYLATE 5 MG TAB PO SCH (10:00)
[2022-01-18] MEDS: CHOLECALCIFEROL (VITD3) 2,000 UNIT CAP/TAB PO SCH (10:00)
[2022-01-18] MEDS: PANTOPRAZOLE 40 MG TAB PO SCH ×2 (10:00→21:07)
[2022-01-18] MEDS: levETIRAcetam 500 MG TAB PO SCH ×2 (10:00→21:07)
[2022-01-18] MEDS: ASCORBIC ACID 1,000 MG TAB PO SCH (10:00)
[2022-01-18] MEDS: DexAMETHasone SOD PHOS 10MG/1ML VIAL INJ IV SCH (10:00)
[2022-01-18] MEDS: cefTRIAXone 1GM/50ML D5W 50 ML IV SCH (11:00)
[2022-01-18 13:11] LABS: Hepatitis A Ab IgM Negative; Hepatitis B Core IgM Negative
[2022-01-18] MEDS ORDERED: LEVO500T31 PO (13:14)
[2022-01-18] MEDS ORDERED: ALBUAER3 IN (13:14)
[2022-01-18] MEDS ORDERED: PANT40T PO (13:14)
[2022-01-18] MEDS ORDERED: SUCR1SUS10 PO (13:14)
[2022-01-18 13:15] LABS: Hepatitis C Antibody Positive (Negative)
[2022-01-18] MEDS: BUDESONIDE (INHALATION) 180 MCG IH IN SCH (19:28)
[2022-01-18] MEDS: ALBUTEROL SULF HFA 90MCG INH 200DOSE IN PRN (19:29)
[2022-01-18] MEDS ORDERED: cloNIDine HCL 0.1 MG TAB PO ONE (20:15)
[2022-01-18] MEDS ORDERED: DOXY-332 PO (23:46)
[2022-01-19 05:00] VITALS: BP 179/79
[2022-01-19] MEDS: hydrALAZINE HCL 20 MG/ML VL IV PRN (05:06)
[2022-01-19] MEDS: MORPHINE SULFATE INJ 2 MG/ml SYRG IV PRN ×3 (05:23→14:23)
[2022-01-19] MEDS: ACCU-CHEK COMFORT CURVE STRIP VI SCH ×3 (06:06→17:00)
[2022-01-19] MEDS: ONDANSETRON HCL 4 MG/2 ML VIAL IV PRN ×3 (06:06→14:23)
[2022-01-19 06:34] LABS: Mean Corpuscular Hemoglobin 23.8 pg (28.0-32.0)
[2022-01-19] MEDS: SUCRALFATE 1 GM/10 ML ORAL SUSP PO SCH ×3 (06:35→17:00)
[2022-01-19 06:36] LABS: Hemoglobin 12.4 g/dL (12.2-16.2); Mean Corpuscular Hgb Conc. 31.8 g/dL (32.0-36.0); Red Blood Cells 5.19 10^6/uL (4.0-5.20); Red Cell Distribution Width 15.9 % (11.8-14.3); White Blood Cell 9.2 10^3/uL (4.4-10.8)
[2022-01-19] MEDS: InsuLIN REG 1unit/0.01ml Soln (100units/ml) SC SCH ×3 (06:36→17:00)
[2022-01-19 06:52] LABS: Calcium 9.1 mg/dL (8.5-10.1); Potassium 4.3 mmol/L (3.5-5.1)
[2022-01-19 06:54] LABS: BUN/Creatinine Ratio 28.6; CRP High Sensitivity 0.24 mg/dL (< 0.3)
[2022-01-19 07:01] LABS: Band Neutrophils % (manual) 0; Basophils % (manual) 0 (0.0-2.0); Blast Cells 0; Eosinophils % (manual) 0 (0-7); Metamyelocytes % 0; Promyelocytes % 0; Reactive Lymphocytes 0
[2022-01-19] MEDS: BUDESONIDE (INHALATION) 180 MCG IH IN SCH (07:15)
[2022-01-19] MEDS: ALBUTEROL SULF HFA 90MCG INH 200DOSE IN PRN (07:15)
[2022-01-19 08:29] LABS: Lymphocytes % (manual) 30 (10.0-50.0); Monocytes % (manual) 12 (0-12); Myelocytes % 3
[2022-01-19 09:00] VITALS: BP 168/72
[2022-01-19] MEDS: PANTOPRAZOLE 40 MG TAB PO SCH (09:37)
[2022-01-19] MEDS: DexAMETHasone SOD PHOS 10MG/1ML VIAL INJ IV SCH (09:37)
[2022-01-19] MEDS: cefTRIAXone 1GM/50ML D5W 50 ML IV SCH (09:37)
[2022-01-19] MEDS: levETIRAcetam 500 MG TAB PO SCH (09:37)
[2022-01-19] MEDS: ASCORBIC ACID 1,000 MG TAB PO SCH (09:38)
[2022-01-19] MEDS: amLODIPine BESYLATE 5 MG TAB PO SCH (09:38)
[2022-01-19] MEDS: ENOXAPARIN SOD 40 MG/0.4 ML SYRINGE SC SCH (09:38)
[2022-01-19] MEDS: CHOLECALCIFEROL (VITD3) 2,000 UNIT CAP/TAB PO SCH (09:38)
[2022-01-19] MEDS ORDERED: LINE1TAB6 PO (12:35)
[2022-01-19 13:00] VITALS: BP 153/89
[2022-01-19 14:36] VITALS: BP 149/88
[2022-01-19] MEDS ORDERED: VANCOMYCIN 1GM/250ML 250 ML IV SCH ×2 (15:45→18:00)
[2022-01-19 16:45] VITALS: BP 129/64
== END 2022-01-19 17:15 | disposition home health service (06) | DRG 177 ==
LOC: EDBD 12:58 → ER 12:58 → TELE 17:03 → TELE-WESTW 22:48
PROVIDERS: ADMIT Registered Nurse; ATTEND Internal Medicine
PROC: 05HF33Z Insertion of Infusion Device into Left Cephalic Vein, Percutaneous Approach (ICD-10-PCS; principal; 2022-01-15)
PROC: B54NZZA Ultrasonography of Left Upper Extremity Veins, Guidance (ICD-10-PCS; 2022-01-15)
DX: U07.1 COVID-19 (principal); E43 Unspecified severe protein-calorie malnutrition; J12.82 Pneumonia due to coronavirus disease 2019; J96.01 Acute respiratory failure with hypoxia; N18.6 End stage renal disease; N39.0 Urinary tract infection, site not specified; L03.116 Cellulitis of left lower limb; I13.2 Hypertensive heart and chronic kidney disease with heart failure and with stage 5 chronic kidney disease, or end stage renal disease; J44.0 Chronic obstructive pulmonary disease with (acute) lower respiratory infection; R78.81 Bacteremia; L89.152 Pressure ulcer of sacral region, stage 2; E11.621 Type 2 diabetes mellitus with foot ulcer; D63.8 Anemia in other chronic diseases classified elsewhere; Z74.01 Bed confinement status; E87.5 Hyperkalemia; E87.6 Hypokalemia; I48.91 Unspecified atrial fibrillation; B96.20 Unspecified Escherichia coli [E. coli] as the cause of diseases classified elsewhere; B19.20 Unspecified viral hepatitis C without hepatic coma; K74.60 Unspecified cirrhosis of liver; L60.3 Nail dystrophy; E11.22 Type 2 diabetes mellitus with diabetic chronic kidney disease; E11.628 Type 2 diabetes mellitus with other skin complications; E78.5 Hyperlipidemia, unspecified; R53.81 Other malaise; G40.909 Epilepsy, unspecified, not intractable, without status epilepticus; G89.29 Other chronic pain; R19.7 Diarrhea, unspecified; B95.7 Other staphylococcus as the cause of diseases classified elsewhere; L97.529 Non-pressure chronic ulcer of other part of left foot with unspecified severity; I50.9 Heart failure, unspecified; K21.9 Gastro-esophageal reflux disease without esophagitis; K76.0 Fatty (change of) liver, not elsewhere classified; Z80.0 Family history of malignant neoplasm of digestive organs; Z82.49 Family history of ischemic heart disease and other diseases of the circulatory system; Z90.49 Acquired absence of other specified parts of digestive tract; Z90.710 Acquired absence of both cervix and uterus
CPT/HCPCS: 36415; 51702; 71045; 71275; 73630; 73700; 73701; 74176; 76705; 80048; 80053; 80061; 80074; 80202; 81001; 82306; 82728; 82962; 83036; 83605; 83615; 83735; 83880; 84132; 84443; 84484; 85007; 85025; 85027; 85379; 86141; 87040; 87077; 87086; 87088; 87186; 93005; 93970; 94640; 96365; 96366; 96367; 96372; 96375; 97110; G0378; J0696; J1100; J1815; J2405; J3480

== ENCOUNTER 2022-04-11 05:57 | Inpatient (IN) | payer OTHER, MEDICAID ==
[~2022-04-11] VITALS: Ht 154.9 cm; Wt 85.0 kg
[~2022-04-11 05:57] MED LIST changes: +ALBUAER3 IN; +CLON0.1T PO; +LEVO500T31 PO; +LINE1TAB6 PO; +PANT40T PO; +SUCR1SUS10 PO
[2022-04-11 07:32] LABS: Basophils # (auto) 0 10 ^3/uL (0-0.2); Basophils % (auto) 0.4 % (0.0-2.0); Eosinophils # (auto) 0 10 ^3/uL (0-0.8); Eosinophils % (auto) 0.3 % (0.0-7.0); Hematocrit 33.4 % (36.0-46.0); Hemoglobin 10.4 g/dL (12.2-16.2); Lymphocytes # (auto) 0.9 10 ^3/uL (0.4-5.4); Lymphocytes % (auto) 10.4 % (10.0-50.0); Mean Corpuscular Hemoglobin 25.1 pg (28.0-32.0); Mean Corpuscular Hgb Conc. 31.2 g/dL (32.0-36.0); Mean Corpuscular Volume 80.4 fL (80.0-100.0); Monocytes # (auto) 0.5 10 ^3/uL (0-1.3); Monocytes % (auto) 6.4 % (0.0-12.0); Neutrophils # (auto) 6.7 10 ^3/uL (1.6-8.6); Neutrophils % (auto) 82.5 % (37.0-80.0); Red Blood Cells 4.15 10^6/uL (4.0-5.20); Red Cell Distribution Width 16.1 % (11.8-14.3); White Blood Cell 8.1 10^3/uL (4.4-10.8)
[2022-04-11 07:53] LABS: Albumin 3.2 g/dL (3.4-5.0); BUN/Creatinine Ratio 23.9; Calcium 8.8 mg/dL (8.5-10.1); Potassium 4.4 mmol/L (3.5-5.1)
[2022-04-11 07:56] LABS: Bilirubin, Total 0.3 mg/dL (0.2-1.0); Total Protein 6.8 g/dL (6.4-8.2)
[2022-04-11] MEDS ORDERED: SODIUM CHLORIDE 0.9% 500 ML IVB ONE (08:15)
[2022-04-11] MEDS ORDERED: SODIUM CHLORIDE 0.9% 1,000 ML IV ONE (08:15)
[2022-04-11 08:53] LABS: Blood Alcohol < 3.0 mg/dL (0-5); Magnesium 1.8 mg/dL (1.6-2.6)
[2022-04-11 08:57] LABS: Urine Bacteria NONE SEEN /hpf (None Seen); Urine Blood TRACE /uL (Negative); Urine Mucus FEW (None Seen); Urine Specific Gravity 1.017 (1.001-1.035); Urine WBC 19 /hpf (0 - 5)
[2022-04-11 09:27] LABS: Alcohol, Urine < 3.0 mg/dL (0-10); Amphetamine Screen, Urine NEGATIVE (NEGATIVE); Barbiturate Scree,Urine NEGATIVE (NEGATIVE); Benzodiazephine Screen, Urine NEGATIVE (NEGATIVE); Cannabinoid Screen, Urine NEGATIVE (NEGATIVE); Cocaine Screen, Urine NEGATIVE (NEGATIVE); Opiate Scree,Urine NEGATIVE (NEGATIVE); Phencyclidine Screen, Urine NEGATIVE (NEGATIVE)
[2022-04-11] MEDS ORDERED: LORazepam 2MG/ML-1ML VIAL IV ONE (15:30)
[2022-04-11] MEDS ORDERED: ACETAMINOPHEN 650 MG RECT SUPP PR ONE (20:15)
[2022-04-11] MEDS ORDERED: DEXTROSE (50%) 50ML SYRG IV PRN (23:15)
[2022-04-11] MEDS ORDERED: ONDANSETRON HCL 4 MG/2 ML VIAL IV PRN (23:15)
[2022-04-11] MEDS ORDERED: hydrALAZINE HCL 20 MG/ML VL IV PRN (23:15)
[2022-04-11] MEDS ORDERED: levoFLOXacin 500MG 100 ML IV SCH (23:15)
[2022-04-11] MEDS ORDERED: ACETAMINOPHEN 650 MG RECT SUPP PR PRN (23:15)
[2022-04-11] MEDS ORDERED: HYDROcodone-ACET 5/325MG TAB PO PRN (23:15)
[2022-04-11] MEDS ORDERED: MORPHINE SULFATE INJ 2 MG/ml SYRG IV PRN (23:15)
[2022-04-11] MEDS ORDERED: NITROGLYCERIN 0.4 MG SL TAB SL PRN (23:15)
[2022-04-12] VITALS: BP 132/56
[2022-04-12] MEDS: PANTOPRAZOLE 40 MG/10 ML VIAL INJ IV SCH ×2 (00:10→11:07)
[2022-04-12] MEDS: ALBUTEROL SULF 2.5 MG/0.5ML(0.5%) NEB SOLN NEB SCH ×6 (02:08→21:35)
[2022-04-12 06:30] LABS: Albumin 2.7 g/dL (3.4-5.0); Potassium 3.8 mmol/L (3.5-5.1)
[2022-04-12 06:38] LABS: Bilirubin, Total 0.3 mg/dL (0.2-1.0); Calcium 8.4 mg/dL (8.5-10.1); Total Protein 5.9 g/dL (6.4-8.2)
[2022-04-12 06:42] LABS: Basophils # (auto) 0 10 ^3/uL (0-0.2); Basophils % (auto) 0.7 % (0.0-2.0); Hemoglobin 9.6 g/dL (12.2-16.2); Lymphocytes # (auto) 1.6 10 ^3/uL (0.4-5.4); Monocytes # (auto) 0.6 10 ^3/uL (0-1.3); Neutrophils # (auto) 4.3 10 ^3/uL (1.6-8.6); Nucleated Red Blood Cells % 0.1 %
[2022-04-12 06:45] LABS: Eosinophils # (auto) 0.1 10 ^3/uL (0-0.8); Eosinophils % (auto) 0.9 % (0.0-7.0); Hematocrit 30.2 % (36.0-46.0); Mean Corpuscular Hemoglobin 25.8 pg (28.0-32.0); Mean Corpuscular Hgb Conc. 31.8 g/dL (32.0-36.0); Mean Corpuscular Volume 81.2 fL (80.0-100.0); Monocytes % (auto) 9.5 % (0.0-12.0); Neutrophils % (auto) 64.9 % (37.0-80.0); Red Blood Cells 3.73 10^6/uL (4.0-5.20); Red Cell Distribution Width 16.2 % (11.8-14.3); White Blood Cell 6.6 10^3/uL (4.4-10.8)
[2022-04-12] MEDS: InsuLIN REG 1unit/0.01ml Soln (100units/ml) SC SCH ×3 (06:58→18:19)
[2022-04-12] MEDS: ACCU-CHEK COMFORT CURVE STRIP VI SCH ×3 (06:59→18:19)
[2022-04-12] MEDS ORDERED: ASPirin 81 mg TAB PO SCH (10:00)
[2022-04-12] MEDS ORDERED: ENOXAPARIN SOD 100 MG/1 ML SYRINGE SC SCH (10:00)
[2022-04-12] MEDS ORDERED: ACETAMINOPHEN 325 MG TAB PO PRN (10:30)
[2022-04-12] MEDS ORDERED: ALB5IS NEB (12:19)
[2022-04-12] MEDS ORDERED: LEVO500T31 PO (12:19)
[2022-04-12] MEDS ORDERED: ATORVASTATIN 20 MG TAB PO SCH (18:00)
[2022-04-12 20:00] VITALS: BP 126/49
== END 2022-04-12 21:00 | disposition home health service (06) | DRG 91 ==
LOC: EDUNIT# 05:57 → ER 05:57 → EDBD 05:57 → TELE 23:38
PROVIDERS: ADMIT Nurse Practitioner Family; ATTEND Nurse Practitioner Family
DX: G92.8 Other toxic encephalopathy (principal); I21.4 Non-ST elevation (NSTEMI) myocardial infarction; J18.9 Pneumonia, unspecified organism; J96.21 Acute and chronic respiratory failure with hypoxia; N18.6 End stage renal disease; I13.2 Hypertensive heart and chronic kidney disease with heart failure and with stage 5 chronic kidney disease, or end stage renal disease; J44.0 Chronic obstructive pulmonary disease with (acute) lower respiratory infection; Z68.43 Body mass index [BMI] 50.0-59.9, adult; N39.0 Urinary tract infection, site not specified; R44.3 Hallucinations, unspecified; G40.909 Epilepsy, unspecified, not intractable, without status epilepticus; I48.91 Unspecified atrial fibrillation; I50.9 Heart failure, unspecified; E66.01 Morbid (severe) obesity due to excess calories; K21.9 Gastro-esophageal reflux disease without esophagitis; F41.9 Anxiety disorder, unspecified; R53.81 Other malaise; E11.22 Type 2 diabetes mellitus with diabetic chronic kidney disease; E11.65 Type 2 diabetes mellitus with hyperglycemia; K74.60 Unspecified cirrhosis of liver; Z80.0 Family history of malignant neoplasm of digestive organs; Z82.49 Family history of ischemic heart disease and other diseases of the circulatory system; Z74.01 Bed confinement status
CPT/HCPCS: 36415; 51702; 70450; 71045; 71250; 74176; 80053; 80061; 80307; 80320; 81001; 82140; 82962; 83036; 83605; 83735; 83880; 84484; 85025; 87040; 87086; 87426; 93005; 93306; 94640; 96361; 96365; 96375; C9113; G0378; J1815; J1956; J7060

== ENCOUNTER 2022-06-29 10:06 | Inpatient (IN) | payer OTHER, MEDICAID ==
[~2022-06-29] VITALS: Ht 180.3 cm; Wt 82.1 kg
[~2022-06-29 10:06] MED LIST changes: +ALB5IS NEB; -BISM262C44 PO; -LEVE500T32 PO; -LINE1TAB6 PO; -SUCR1TAB PO
[2022-06-29] MEDS ORDERED: IPRATROPIUM BROM 0.5 MG/2.5ML INH SOL NEB ONE (10:30)
[2022-06-29] MEDS ORDERED: ALBUTEROL SULF 2.5 MG/0.5ML(0.5%) NEB SOLN NEB ONE (10:30)
[2022-06-29] MEDS ORDERED: ALBUTEROL MEDNEB 2.5 mg/3ml NEB ONE (10:42)
[2022-06-29 11:16] LABS: Basophils # (auto) 0 10 ^3/uL (0-0.2); Eosinophils # (auto) 0.1 10 ^3/uL (0-0.8); Eosinophils % (auto) 0.6 % (0.0-7.0); Hemoglobin 10.6 g/dL (12.2-16.2); Nucleated Red Blood Cells % 0.1 %; Red Cell Distribution Width 15.5 % (11.8-14.3)
[2022-06-29 11:20] LABS: Basophils % (auto) 0.4 % (0.0-2.0); Lymphocytes # (auto) 1.4 10 ^3/uL (0.4-5.4); Lymphocytes % (auto) 15.2 % (10.0-50.0); Mean Corpuscular Hemoglobin 24.5 pg (28.0-32.0); Mean Corpuscular Hgb Conc. 32.2 g/dL (32.0-36.0); Mean Corpuscular Volume 76.3 fL (80.0-100.0); Monocytes # (auto) 0.6 10 ^3/uL (0-1.3); Monocytes % (auto) 6.6 % (0.0-12.0); Neutrophils % (auto) 77.2 % (37.0-80.0); Red Blood Cells 4.32 10^6/uL (4.0-5.20)
[2022-06-29] MEDS ORDERED: SODIUM CHLORIDE 0.9% 1,000 ML IV ONE (11:30)
[2022-06-29] MEDS ORDERED: cefTRIAXone 1GM/50ML D5W 50 ML IV ONE (11:30)
[2022-06-29 11:32] LABS: Albumin 3.6 g/dL (3.4-5.0); Calcium 8.8 mg/dL (8.5-10.1); Potassium 4.4 mmol/L (3.5-5.1)
[2022-06-29 11:35] LABS: BUN/Creatinine Ratio 21.7; Bilirubin, Total 0.3 mg/dL (0.2-1.0)
[2022-06-29 13:01] LABS: Urine Bacteria NONE SEEN /hpf (None Seen); Urine Blood 1+ /uL (Negative); Urine Specific Gravity 1.016 (1.001-1.035); Urine WBC 330 /hpf (0 - 5)
[2022-06-29 13:03] LABS: Alcohol, Urine < 3.0 mg/dL (0-10); Amphetamine Screen, Urine NEGATIVE (NEGATIVE); Barbiturate Scree,Urine NEGATIVE (NEGATIVE); Benzodiazephine Screen, Urine NEGATIVE (NEGATIVE); Cannabinoid Screen, Urine NEGATIVE (NEGATIVE); Cocaine Screen, Urine NEGATIVE (NEGATIVE); Opiate Scree,Urine NEGATIVE (NEGATIVE); Phencyclidine Screen, Urine NEGATIVE (NEGATIVE)
[2022-06-29] MEDS ORDERED: ONDANSETRON HCL 4 MG/2 ML VIAL IV PRN (20:45)
[2022-06-29] MEDS ORDERED: hydrALAZINE HCL 10 MG TAB PO PRN (20:45)
[2022-06-29] MEDS ORDERED: DEXTROSE (50%) 50ML SYRG IV PRN (21:00)
[2022-06-29] MEDS: SODIUM CHLORIDE 0.9% 1,000 ML IV SCH (22:32)
[2022-06-29] MEDS: HYDROcodone-ACET 5/325MG TAB PO PRN (22:36)
[2022-06-29] MEDS: ACCU-CHEK COMFORT CURVE STRIP VI SCH (23:04)
[2022-06-29] MEDS: InsuLIN REG 1unit/0.01ml Soln (100units/ml) SC SCH (23:08)
[2022-06-29] MEDS: PIPERACILLIN-TAZOB 3.375GM 100 ML IV SCH (23:17)
[2022-06-30] MEDS ORDERED: ALBUTEROL MEDNEB 2.5 mg/3ml NEB ONE ×4 (00:59→13:39)
[2022-06-30] MEDS ORDERED: SODIUM CHLORIDE 0.9% 1,000 ML IV SCH (01:00)
[2022-06-30 01:02] VITALS: BP 150/76
[2022-06-30] MEDS: ALBUTEROL SULF 2.5 MG/0.5ML(0.5%) NEB SOLN NEB PRN ×2 (01:26→05:47)
[2022-06-30] MEDS ORDERED: LORazepam 2MG/ML-1ML VIAL IV ONE (02:30)
[2022-06-30] MEDS ORDERED: ACETAMINOPHEN 650 MG RECT SUPP PR PRN (05:00)
[2022-06-30] MEDS ORDERED: levETIRAcetam 500 MG/5ML INJ IV ONE (05:16)
[2022-06-30] MEDS: IPRATROPIUM BROM 0.5 MG/2.5ML INH SOL NEB SCH ×5 (06:33→22:00)
[2022-06-30] MEDS: ALBUTEROL SULF 2.5 MG/0.5ML(0.5%) NEB SOLN NEB SCH ×5 (06:33→22:00)
[2022-06-30] MEDS ORDERED: methylPREDNISolone SOD SUCC 40 MG/ML VL IV ONE (06:45)
[2022-06-30 06:50] LABS: Anion Gap 10 (5-15); BUN/Creatinine Ratio 18.5; Blood Urea Nitrogen 25 mg/dL (7-18); Calcium 8.8 mg/dL (8.5-10.1); Carbon Dioxide 25 mmol/L (21-32); Chloride 101 mmol/L (98-107); GFR African American 50 mL/min; GFR Non-African American 41 mL/min; Glucose 182 mg/dL (74-106); Potassium 4.9 mmol/L (3.5-5.1); Sodium 136 mmol/L (136-145)
[2022-06-30 06:52] LABS: Basophils # (auto) 0.1 10 ^3/uL (0-0.2); Lymphocytes # (auto) 1.6 10 ^3/uL (0.4-5.4); Monocytes # (auto) 0.9 10 ^3/uL (0-1.3); Nucleated Red Blood Cells % 0.2 %; Red Cell Distribution Width 15.7 % (11.8-14.3)
[2022-06-30 06:55] LABS: Basophils % (auto) 0.7 % (0.0-2.0); Eosinophils # (auto) 0.1 10 ^3/uL (0-0.8); Eosinophils % (auto) 0.4 % (0.0-7.0); Hemoglobin 10.2 g/dL (12.2-16.2); Lymphocytes % (auto) 13.7 % (10.0-50.0); Mean Corpuscular Hemoglobin 24.5 pg (28.0-32.0); Mean Corpuscular Hgb Conc. 30.9 g/dL (32.0-36.0); Mean Corpuscular Volume 79.1 fL (80.0-100.0); Monocytes % (auto) 7.5 % (0.0-12.0); Neutrophils # (auto) 9.3 10 ^3/uL (1.6-8.6); Neutrophils % (auto) 77.7 % (37.0-80.0); Red Blood Cells 4.17 10^6/uL (4.0-5.20)
[2022-06-30] MEDS: ACCU-CHEK COMFORT CURVE STRIP VI SCH ×4 (07:00→23:08)
[2022-06-30] MEDS: InsuLIN REG 1unit/0.01ml Soln (100units/ml) SC SCH ×4 (07:00→23:20)
[2022-06-30] MEDS ORDERED: methylPREDNISolone SOD SUCC 40 MG/ML VL IV SCH (10:00)
[2022-06-30] MEDS: FAMOTIDINE 20 MG TAB PO SCH (10:00)
[2022-06-30] MEDS: PIPERACILLIN-TAZOB 3.375GM 100 ML IV SCH (10:23)
[2022-06-30] MEDS: SODIUM CHLORIDE 0.9% 1,000 ML IV SCH ×2 (10:24→17:32)
[2022-06-30] MEDS ORDERED: HALOPERIDOL LACTATE 5 MG/ML INJ VIAL IM PRN (10:30)
[2022-06-30] MEDS ORDERED: LORazepam 2MG/ML-1ML VIAL IV PRN (10:30)
[2022-06-30] MEDS: MEROPENEM 1GM IVPB 100 ML IV SCH (13:15)
[2022-06-30] MEDS: ACETAMINOPHEN 325 MG TAB PO PRN (17:44)
[2022-06-30] MEDS: HYDROcodone-ACET 5/325MG TAB PO PRN (20:07)
[2022-06-30 21:47] VITALS: BP 111/46
[2022-06-30 22:00] VITALS: BP 111/46
[2022-07-01] MEDS: MEROPENEM 1GM IVPB 100 ML IV SCH (01:36)
[2022-07-01] MEDS: HYDROcodone-ACET 5/325MG TAB PO PRN ×3 (01:36→16:20)
[2022-07-01] MEDS ORDERED: ALBUTEROL MEDNEB 2.5 mg/3ml NEB ONE ×4 (02:09→18:18)
[2022-07-01] MEDS: IPRATROPIUM BROM 0.5 MG/2.5ML INH SOL NEB SCH ×4 (02:45→14:40)
[2022-07-01] MEDS: SODIUM CHLORIDE 0.9% 1,000 ML IV SCH ×2 (02:45→12:44)
[2022-07-01] MEDS: ALBUTEROL SULF 2.5 MG/0.5ML(0.5%) NEB SOLN NEB SCH ×4 (02:45→14:40)
[2022-07-01 05:00] VITALS: BP 150/66
[2022-07-01] MEDS: ACETAMINOPHEN 325 MG TAB PO PRN ×2 (05:42→11:47)
[2022-07-01] MEDS: ACCU-CHEK COMFORT CURVE STRIP VI SCH ×3 (05:43→17:00)
[2022-07-01] MEDS: InsuLIN REG 1unit/0.01ml Soln (100units/ml) SC SCH ×3 (05:43→17:00)
[2022-07-01 06:35] LABS: BUN/Creatinine Ratio 26.9; Calcium 8.6 mg/dL (8.5-10.1); Potassium 4.2 mmol/L (3.5-5.1)
[2022-07-01 06:45] LABS: Basophils # (auto) 0 10 ^3/uL (0-0.2); Basophils % (auto) 0.4 % (0.0-2.0); Eosinophils # (auto) 0.1 10 ^3/uL (0-0.8); Eosinophils % (auto) 1.2 % (0.0-7.0); Hematocrit 28.9 % (36.0-46.0); Hemoglobin 9.3 g/dL (12.2-16.2); Lymphocytes # (auto) 1.8 10 ^3/uL (0.4-5.4); Lymphocytes % (auto) 20.9 % (10.0-50.0); Mean Corpuscular Hemoglobin 24.9 pg (28.0-32.0); Mean Corpuscular Hgb Conc. 32.1 g/dL (32.0-36.0); Mean Corpuscular Volume 77.5 fL (80.0-100.0); Monocytes # (auto) 0.9 10 ^3/uL (0-1.3); Monocytes % (auto) 9.9 % (0.0-12.0); Neutrophils # (auto) 5.8 10 ^3/uL (1.6-8.6); Neutrophils % (auto) 67.6 % (37.0-80.0); Nucleated Red Blood Cells % 0.1 %; Red Blood Cells 3.73 10^6/uL (4.0-5.20); White Blood Cell 8.6 10^3/uL (4.4-10.8)
[2022-07-01] MEDS: FAMOTIDINE 20 MG TAB PO SCH (08:37)
[2022-07-01] MEDS ORDERED: LEVO500T31 PO (08:54)
[2022-07-01 08:59] VITALS: BP 105/62
[2022-07-01 10:24] VITALS: BP 105/60
[2022-07-01] MEDS ORDERED: MEROPENEM 1GM IVPB 100 ML IV SCH (16:00)
[2022-07-01 16:10] VITALS: BP 150/71
== END 2022-07-01 18:54 | disposition home health service (06) | DRG 70 ==
LOC: ER 10:06 → EDBD 10:06 → TELE 20:43 → TELE-WESTW 06-30 21:17
PROVIDERS: ADMIT Nurse Practitioner Family; ATTEND Nurse Practitioner Family
DX: G93.41 Metabolic encephalopathy (principal); N17.0 Acute kidney failure with tubular necrosis; N39.0 Urinary tract infection, site not specified; E66.01 Morbid (severe) obesity due to excess calories; F41.9 Anxiety disorder, unspecified; I48.0 Paroxysmal atrial fibrillation; Z20.822 Contact with and (suspected) exposure to COVID-19; E78.5 Hyperlipidemia, unspecified; F29 Unspecified psychosis not due to a substance or known physiological condition; G40.409 Other generalized epilepsy and epileptic syndromes, not intractable, without status epilepticus; I50.9 Heart failure, unspecified; J44.9 Chronic obstructive pulmonary disease, unspecified; Z74.01 Bed confinement status; Z79.899 Other long term (current) drug therapy; Z68.25 Body mass index [BMI] 25.0-25.9, adult; Z80.0 Family history of malignant neoplasm of digestive organs; Z82.49 Family history of ischemic heart disease and other diseases of the circulatory system; Z90.710 Acquired absence of both cervix and uterus; Z99.81 Dependence on supplemental oxygen; I11.0 Hypertensive heart disease with heart failure; E11.9 Type 2 diabetes mellitus without complications
CPT/HCPCS: 36415; 36600; 70450; 71045; 80048; 80053; 80307; 81001; 82140; 82805; 82962; 83605; 83880; 84484; 85025; 87040; 87086; 87426; 93005; 94640; 95819; 96365; 96366; 96367; 96368; 96372; G0378; J0696; J1815; J2185; J2543; J7060

== ENCOUNTER 2022-07-14 10:07 | Inpatient (IN) | payer OTHER, MEDICAID ==
[~2022-07-14] VITALS: Ht 154.9 cm; Wt 84.3 kg
[~2022-07-14 10:07] MED LIST changes: -ALB5IS NEB; -SUCR1SUS10 PO
[2022-07-14] MEDS ORDERED: cloNIDine HCL 0.1 MG TAB PO ONE (10:45)
[2022-07-14] MEDS ORDERED: cefTRIAXone 1GM/50ML D5W 50 ML IV ONE (10:45)
[2022-07-14 11:00] LABS: Basophils # (auto) 0 10 ^3/uL (0-0.2); Basophils % (auto) 0.4 % (0.0-2.0); Eosinophils # (auto) 0 10 ^3/uL (0-0.8); Eosinophils % (auto) 0.4 % (0.0-7.0); Hematocrit 32.6 % (36.0-46.0); Hemoglobin 10.3 g/dL (12.2-16.2); Lymphocytes # (auto) 1.3 10 ^3/uL (0.4-5.4); Lymphocytes % (auto) 12.7 % (10.0-50.0); Mean Corpuscular Hemoglobin 24.3 pg (28.0-32.0); Mean Corpuscular Hgb Conc. 31.7 g/dL (32.0-36.0); Mean Corpuscular Volume 76.8 fL (80.0-100.0); Monocytes # (auto) 0.6 10 ^3/uL (0-1.3); Monocytes % (auto) 6.2 % (0.0-12.0); Neutrophils # (auto) 8.1 10 ^3/uL (1.6-8.6); Neutrophils % (auto) 80.3 % (37.0-80.0); Nucleated Red Blood Cells % 0.1 %; Red Blood Cells 4.24 10^6/uL (4.0-5.20); Red Cell Distribution Width 16.4 % (11.8-14.3); White Blood Cell 10.1 10^3/uL (4.4-10.8)
[2022-07-14 11:10] LABS: Alanine Aminotransferase 24 U/L (13-56); Albumin 3.2 g/dL (3.4-5.0); Anion Gap 6 (5-15); Aspartate Aminotransferase 19 U/L (15-37); BUN/Creatinine Ratio 20.9; Blood Urea Nitrogen 23 mg/dL (7-18); Calcium 8.8 mg/dL (8.5-10.1); Carbon Dioxide 30 mmol/L (21-32); Chloride 100 mmol/L (98-107); GFR African American 63 mL/min; GFR Non-African American 52 mL/min; Glucose 263 mg/dL (74-106); Potassium 5.4 mmol/L (3.5-5.1); Sodium 136 mmol/L (136-145)
[2022-07-14 11:13] LABS: Alkaline Phosphatase 93 U/L (45-117); Bilirubin, Total 0.3 mg/dL (0.2-1.0); Total Protein 6.4 g/dL (6.4-8.2)
[2022-07-14] MEDS ORDERED: ALBUTEROL SULF 2.5 MG/0.5ML(0.5%) NEB SOLN NEB ONE (12:45)
[2022-07-14] MEDS ORDERED: SODIUM ZIRCONIUM CYCL 10 GM PAK PO ONE (12:45)
[2022-07-14] MEDS ORDERED: ONDANSETRON HCL 4 MG/2 ML VIAL IV ONE (12:45)
[2022-07-14] MEDS ORDERED: CALCIUM GLUC 1,000mg/50ml-NS 50 ML IV ONE (12:45)
[2022-07-14] MEDS ORDERED: DEXTROSE (50%) 50ML SYRG IV ONE (12:45)
[2022-07-14] MEDS ORDERED: FUROSEMIDE 20 MG/2 ML VIAL IV ONE (12:45)
[2022-07-14] MEDS ORDERED: InsuLIN REG 1unit/0.01ml Soln (100units/ml) IV ONE (12:45)
[2022-07-14] MEDS ORDERED: ENOXAPARIN SOD 100 MG/1 ML SYRINGE SC ONE (12:45)
[2022-07-14] MEDS ORDERED: LORazepam 2MG/ML-1ML VIAL IV ONE (12:45)
[2022-07-14] MEDS ORDERED: MORPHINE SULFATE INJ 2 MG/ml SYRG IV ONE (12:45)
[2022-07-14] MEDS ORDERED: SODIUM BICARBONATE 8.4% INJ 50ML SYRINGE IV ONE (12:45)
[2022-07-14] MEDS ORDERED: NITROGLYCERIN 0.4 MG SL TAB SL PRN (15:45)
[2022-07-14] MEDS ORDERED: MORPHINE SULFATE INJ 2 MG/ml SYRG IV PRN (15:45)
[2022-07-14] MEDS: cloNIDine HCL 0.1 MG TAB PO SCH ×2 (18:18→23:25)
[2022-07-14 19:07] LABS: Urine Bacteria FEW /hpf (None Seen); Urine Blood Negative /uL (Negative); Urine Specific Gravity 1.015 (1.001-1.035); Urine WBC 15 /hpf (0 - 5)
[2022-07-14 22:14] VITALS: BP 110/54
[2022-07-14] MEDS: PANTOPRAZOLE 40 MG TAB PO SCH (23:20)
[2022-07-14] MEDS: glipiZIDE 5 MG TAB PO SCH (23:21)
[2022-07-14] MEDS: HYDROcodone-ACET 5/325MG TAB PO PRN (23:22)
[2022-07-15] VITALS (36 sets, daily range): BP systolic 57–147; BP diastolic 27–90
[2022-07-15] MEDS: ALBUTEROL SULF 2.5 MG/0.5ML(0.5%) NEB SOLN NEB SCH ×4 (00:03→18:10)
[2022-07-15] MEDS ORDERED: ALBUTEROL MEDNEB 2.5 mg/3ml NEB ONE ×3 (00:03→17:53)
[2022-07-15] MEDS: IPRATROPIUM BROM 0.5 MG/2.5ML INH SOL NEB SCH ×4 (00:03→18:09)
[2022-07-15] MEDS: diphenhdrAMINE HCL 25 MG CAP PO SCH ×2 (00:23→22:00)
[2022-07-15] MEDS: ALPRAZolam 0.25 MG TAB GT SCH ×3 (00:23→21:26)
[2022-07-15] MEDS: cloNIDine HCL 0.1 MG TAB PO SCH ×4 (05:38→21:14)
[2022-07-15] MEDS ORDERED: SULF400T11 PO (09:02)
[2022-07-15] MEDS ORDERED: LOSA100T22 PO (09:02)
[2022-07-15] MEDS ORDERED: BUSP10TA90 PO (09:02)
[2022-07-15] MEDS ORDERED: LEVO50TA7 PO (09:02)
[2022-07-15] MEDS ORDERED: LEVE500T32 PO (09:02)
[2022-07-15] MEDS ORDERED: TRAM50TA2 PO (09:02)
[2022-07-15] MEDS ORDERED: SUCR1SUS5 PO (09:02)
[2022-07-15] MEDS ORDERED: CITA10TA8 PO (09:02)
[2022-07-15] MEDS: ACETAMINOPHEN 325 MG TAB PO PRN (09:55)
[2022-07-15 10:11] LABS: Eosinophils # (auto) 0.1 10 ^3/uL (0-0.8); Hemoglobin 10.1 g/dL (12.2-16.2)
[2022-07-15 10:14] LABS: Basophils # (auto) 0 10 ^3/uL (0-0.2); Basophils % (auto) 0.4 % (0.0-2.0); Eosinophils % (auto) 0.6 % (0.0-7.0); Hematocrit 31.8 % (36.0-46.0); Lymphocytes # (auto) 1.3 10 ^3/uL (0.4-5.4); Lymphocytes % (auto) 11.9 % (10.0-50.0); Mean Corpuscular Hemoglobin 24.2 pg (28.0-32.0); Mean Corpuscular Hgb Conc. 31.7 g/dL (32.0-36.0); Mean Corpuscular Volume 76.5 fL (80.0-100.0); Monocytes # (auto) 0.9 10 ^3/uL (0-1.3); Monocytes % (auto) 8.2 % (0.0-12.0); Neutrophils # (auto) 8.4 10 ^3/uL (1.6-8.6); Neutrophils % (auto) 78.9 % (37.0-80.0); Nucleated Red Blood Cells % 0.1 %; Red Blood Cells 4.15 10^6/uL (4.0-5.20); Red Cell Distribution Width 16.5 % (11.8-14.3); White Blood Cell 10.7 10^3/uL (4.4-10.8)
[2022-07-15 10:28] LABS: Albumin 3.4 g/dL (3.4-5.0); Calcium 8.7 mg/dL (8.5-10.1)
[2022-07-15 10:31] LABS: BUN/Creatinine Ratio 18.8; Bilirubin, Total 0.3 mg/dL (0.2-1.0); Total Protein 6.5 g/dL (6.4-8.2)
[2022-07-15 10:37] LABS: Potassium 5.9 mmol/L (3.5-5.1)
[2022-07-15] MEDS: glipiZIDE 5 MG TAB PO SCH ×2 (11:10→21:14)
[2022-07-15] MEDS: PANTOPRAZOLE 40 MG TAB PO SCH ×2 (11:10→21:26)
[2022-07-15] MEDS: amLODIPine BESYLATE 5 MG TAB PO SCH (11:11)
[2022-07-15] MEDS: ENOXAPARIN SOD 40 MG/0.4 ML SYRINGE SC SCH (11:11)
[2022-07-15] MEDS: INSULIN LANTUS (GLARGINE) 1 /0.01ml (100units/ml) SC SCH (11:22)
[2022-07-15] MEDS ORDERED: DEXTROSE (50%) 50ML SYRG IV ONE (11:30)
[2022-07-15] MEDS ORDERED: SODIUM ZIRCONIUM CYCL 10 GM PAK PO ONE (11:30)
[2022-07-15] MEDS ORDERED: CALCIUM GLUC 1,000mg/50ml-NS 50 ML IV ONE (11:30)
[2022-07-15] MEDS ORDERED: InsuLIN REG 1unit/0.01ml Soln (100units/ml) IV ONE (11:30)
[2022-07-15] MEDS: SODIUM CHLORIDE 0.9% 1,000 ML IV SCH ×3 (12:28→22:06)
[2022-07-15] MEDS: FUROSEMIDE 40 MG/4 ML VIAL IV SCH (13:42)
[2022-07-15] MEDS ORDERED: VANCOMYCIN PER PHARMACY 0 MG IV SCH (15:15)
[2022-07-15 15:19] LABS: Urine Bacteria MOD /hpf (None Seen); Urine Blood TRACE /uL (Negative); Urine Hyaline Cast MANY /lpf (0 - 2); Urine Specific Gravity 1.014 (1.001-1.035); Urine WBC 294 /hpf (0 - 5); Urine WBC Clumps PRESENT /hpf (None Seen)
[2022-07-15 15:23] LABS: Protein, Urine 75.4 mg/dL (0.0-11.9)
[2022-07-15] MEDS ORDERED: VANCOMYCIN 1GM/250ML 250 ML IV ONE (15:30)
[2022-07-15] MEDS ORDERED: NOREPINEPHRINE 8 MG/250ML KIT 0 ML IV ONE (16:10)
[2022-07-15] MEDS: NOREPINEPHRINE 8 MG/250ML KIT 250 ML IV SCH (16:15)
[2022-07-15 16:17] LABS: Calcium 9.2 mg/dL (8.5-10.1); Potassium 5.1 mmol/L (3.5-5.1)
[2022-07-15 16:26] LABS: BUN/Creatinine Ratio 18.4
[2022-07-15] MEDS: CEFEPIME 2 GM in SODIUM CHL 0.9% 50 ML IV SCH (21:27)
[2022-07-16] VITALS (86 sets, daily range): BP systolic 102–161; BP diastolic 35–83
[2022-07-16 03:56] LABS: Basophils # (auto) 0 10 ^3/uL (0-0.2); Basophils % (auto) 0.5 % (0.0-2.0); Eosinophils # (auto) 0.1 10 ^3/uL (0-0.8); Lymphocytes # (auto) 1.8 10 ^3/uL (0.4-5.4); Monocytes # (auto) 0.6 10 ^3/uL (0-1.3); Neutrophils # (auto) 4.6 10 ^3/uL (1.6-8.6)
[2022-07-16 03:58] LABS: INR 0.98 (0.9-1.15); Partial Thromboplastin Time 27.4 sec (24.6-33.4)
[2022-07-16 03:59] LABS: Albumin 2.6 g/dL (3.4-5.0); BUN/Creatinine Ratio 22.7; Calcium 8.7 mg/dL (8.5-10.1); Eosinophils % (auto) 1.8 % (0.0-7.0); Hematocrit 27.9 % (36.0-46.0); Hemoglobin 8.8 g/dL (12.2-16.2); Lymphocytes % (auto) 24.7 % (10.0-50.0); Mean Corpuscular Hemoglobin 24.4 pg (28.0-32.0); Mean Corpuscular Hgb Conc. 31.4 g/dL (32.0-36.0); Mean Corpuscular Volume 77.7 fL (80.0-100.0); Monocytes % (auto) 8.8 % (0.0-12.0); Neutrophils % (auto) 64.2 % (37.0-80.0); Potassium 4.2 mmol/L (3.5-5.1); Red Blood Cells 3.59 10^6/uL (4.0-5.20); Red Cell Distribution Width 16.8 % (11.8-14.3); White Blood Cell 7.1 10^3/uL (4.4-10.8)
[2022-07-16 04:00] LABS: Bilirubin, Total 0.2 mg/dL (0.2-1.0); Total Protein 5.9 g/dL (6.4-8.2)
[2022-07-16] MEDS: MORPHINE SULFATE INJ 2 MG/ml SYRG IV PRN ×4 (05:25→20:16)
[2022-07-16] MEDS: cloNIDine HCL 0.1 MG TAB PO SCH ×4 (05:34→22:00)
[2022-07-16] MEDS ORDERED: ALBUTEROL MEDNEB 2.5 mg/3ml NEB ONE ×2 (05:51→11:31)
[2022-07-16] MEDS: IPRATROPIUM BROM 0.5 MG/2.5ML INH SOL NEB SCH ×3 (05:54→19:01)
[2022-07-16] MEDS: ALBUTEROL SULF 2.5 MG/0.5ML(0.5%) NEB SOLN NEB SCH ×3 (05:54→19:02)
[2022-07-16] MEDS: CEFEPIME 2 GM in SODIUM CHL 0.9% 50 ML IV SCH ×2 (10:00→22:00)
[2022-07-16] MEDS: ENOXAPARIN SOD 40 MG/0.4 ML SYRINGE SC SCH (10:00)
[2022-07-16] MEDS: glipiZIDE 5 MG TAB PO SCH ×2 (10:00→22:00)
[2022-07-16] MEDS ORDERED: VANCOMYCIN 500 MG in D5W 5% 100 ML IV ONE ×2 (10:00→13:45)
[2022-07-16] MEDS: INSULIN LANTUS (GLARGINE) 1 /0.01ml (100units/ml) SC SCH (10:00)
[2022-07-16] MEDS: amLODIPine BESYLATE 5 MG TAB PO SCH (10:00)
[2022-07-16] MEDS: PANTOPRAZOLE 40 MG TAB PO SCH ×2 (10:00→22:01)
[2022-07-16] MEDS: FUROSEMIDE 40 MG/4 ML VIAL IV SCH (11:38)
[2022-07-16] MEDS: SODIUM CHLORIDE 0.9% 1,000 ML IV SCH (11:39)
[2022-07-16] MEDS: HYDROcodone-ACET 5/325MG TAB PO PRN (14:58)
[2022-07-16] MEDS: NOREPINEPHRINE 8 MG/250ML KIT 250 ML IV SCH (16:15)
[2022-07-16] MEDS: diphenhdrAMINE HCL 25 MG CAP PO SCH (21:59)
[2022-07-16] MEDS: ALPRAZolam 0.25 MG TAB GT SCH (21:59)
[2022-07-16] MEDS: ONDANSETRON HCL 4 MG/2 ML VIAL IV PRN (23:11)
[2022-07-17] VITALS (91 sets, daily range): BP systolic 116–173; BP diastolic 35–102
[2022-07-17] MEDS: MORPHINE SULFATE INJ 2 MG/ml SYRG IV PRN ×6 (00:23→22:04)
[2022-07-17 04:50] LABS: Potassium 4.6 mmol/L (3.5-5.1)
[2022-07-17 04:56] LABS: Albumin 2.8 g/dL (3.4-5.0); BUN/Creatinine Ratio 21.4; Calcium 8.5 mg/dL (8.5-10.1); Phosphorus 3.2 mg/dL (2.5-4.90)
[2022-07-17] MEDS: ONDANSETRON HCL 4 MG/2 ML VIAL IV PRN ×4 (06:09→22:03)
[2022-07-17] MEDS: cloNIDine HCL 0.1 MG TAB PO SCH ×4 (06:11→22:03)
[2022-07-17] MEDS ORDERED: ALBUTEROL MEDNEB 2.5 mg/3ml NEB ONE ×2 (06:17→18:03)
[2022-07-17] MEDS: ALBUTEROL SULF 2.5 MG/0.5ML(0.5%) NEB SOLN NEB SCH ×3 (06:21→18:24)
[2022-07-17] MEDS: IPRATROPIUM BROM 0.5 MG/2.5ML INH SOL NEB SCH ×3 (06:21→18:24)
[2022-07-17] MEDS: PANTOPRAZOLE 40 MG TAB PO SCH ×2 (09:14→22:03)
[2022-07-17] MEDS: ENOXAPARIN SOD 40 MG/0.4 ML SYRINGE SC SCH (09:14)
[2022-07-17] MEDS: amLODIPine BESYLATE 5 MG TAB PO SCH (09:14)
[2022-07-17] MEDS: INSULIN LANTUS (GLARGINE) 1 /0.01ml (100units/ml) SC SCH (09:15)
[2022-07-17] MEDS: glipiZIDE 5 MG TAB PO SCH ×2 (10:00→22:08)
[2022-07-17] MEDS: CEFEPIME 2 GM in SODIUM CHL 0.9% 50 ML IV SCH ×2 (10:00→22:02)
[2022-07-17] MEDS ORDERED: VANCOMYCIN 1GM/250ML 250 ML IV ONE (14:00)
[2022-07-17] MEDS: NOREPINEPHRINE 8 MG/250ML KIT 250 ML IV SCH (16:15)
[2022-07-17] MEDS: HYDROcodone-ACET 5/325MG TAB PO PRN (21:13)
[2022-07-17] MEDS: ALPRAZolam 0.25 MG TAB GT SCH (22:02)
[2022-07-17] MEDS: diphenhdrAMINE HCL 25 MG CAP PO SCH (22:03)
[2022-07-18] VITALS (24 sets, daily range): BP systolic 98–165; BP diastolic 34–64
[2022-07-18] MEDS: ONDANSETRON HCL 4 MG/2 ML VIAL IV PRN ×2 (04:31→17:30)
[2022-07-18] MEDS: MORPHINE SULFATE INJ 2 MG/ml SYRG IV PRN ×5 (04:32→21:51)
[2022-07-18] MEDS: cloNIDine HCL 0.1 MG TAB PO SCH ×4 (06:00→21:16)
[2022-07-18] MEDS ORDERED: ALBUTEROL MEDNEB 2.5 mg/3ml NEB ONE ×3 (06:00→18:29)
[2022-07-18] MEDS: ALBUTEROL SULF 2.5 MG/0.5ML(0.5%) NEB SOLN NEB SCH ×3 (06:43→18:34)
[2022-07-18] MEDS: IPRATROPIUM BROM 0.5 MG/2.5ML INH SOL NEB SCH ×3 (06:43→18:34)
[2022-07-18] MEDS: ENOXAPARIN SOD 40 MG/0.4 ML SYRINGE SC SCH (09:55)
[2022-07-18] MEDS: CEFEPIME 2 GM in SODIUM CHL 0.9% 50 ML IV SCH ×2 (09:55→21:51)
[2022-07-18] MEDS: PANTOPRAZOLE 40 MG TAB PO SCH ×2 (09:59→21:15)
[2022-07-18] MEDS: glipiZIDE 5 MG TAB PO SCH ×2 (09:59→21:16)
[2022-07-18] MEDS: amLODIPine BESYLATE 5 MG TAB PO SCH (09:59)
[2022-07-18] MEDS: INSULIN LANTUS (GLARGINE) 1 /0.01ml (100units/ml) SC SCH (10:07)
[2022-07-18] MEDS ORDERED: VANCOMYCIN 1GM/250ML 250 ML IV ONE (11:00)
[2022-07-18] MEDS: NOREPINEPHRINE 8 MG/250ML KIT 250 ML IV SCH (16:15)
[2022-07-18] MEDS: HYDROcodone-ACET 5/325MG TAB PO PRN (19:52)
[2022-07-18] MEDS: ALPRAZolam 0.25 MG TAB GT SCH (21:15)
[2022-07-18] MEDS: diphenhdrAMINE HCL 25 MG CAP PO SCH (21:15)
[2022-07-19] VITALS (24 sets, daily range): BP systolic 85–159; BP diastolic 26–92
[2022-07-19] MEDS: MORPHINE SULFATE INJ 2 MG/ml SYRG IV PRN ×6 (01:43→23:40)
[2022-07-19] MEDS: ONDANSETRON HCL 4 MG/2 ML VIAL IV PRN ×2 (01:47→06:11)
[2022-07-19 03:45] LABS: Basophils # (auto) 0 10 ^3/uL (0-0.2); Basophils % (auto) 0.5 % (0.0-2.0); Eosinophils # (auto) 0.2 10 ^3/uL (0-0.8); Eosinophils % (auto) 4.5 % (0.0-7.0); Hematocrit 30.2 % (36.0-46.0); Lymphocytes # (auto) 1.4 10 ^3/uL (0.4-5.4); Lymphocytes % (auto) 27.9 % (10.0-50.0); Mean Corpuscular Hemoglobin 23.8 pg (28.0-32.0); Mean Corpuscular Hgb Conc. 29.9 g/dL (32.0-36.0); Mean Corpuscular Volume 79.6 fL (80.0-100.0); Monocytes # (auto) 0.4 10 ^3/uL (0-1.3); Monocytes % (auto) 7.9 % (0.0-12.0); Neutrophils % (auto) 59.2 % (37.0-80.0); Nucleated Red Blood Cells % 0.1 %; Red Blood Cells 3.79 10^6/uL (4.0-5.20); Red Cell Distribution Width 17.4 % (11.8-14.3)
[2022-07-19 03:57] LABS: Potassium 4.6 mmol/L (3.5-5.1)
[2022-07-19 04:03] LABS: Albumin 2.7 g/dL (3.4-5.0); BUN/Creatinine Ratio 16.8; Bilirubin, Total 0.2 mg/dL (0.2-1.0); Calcium 8.5 mg/dL (8.5-10.1); Phosphorus 3.2 mg/dL (2.5-4.90); Total Protein 6.2 g/dL (6.4-8.2)
[2022-07-19] MEDS: cloNIDine HCL 0.1 MG TAB PO SCH (06:00)
[2022-07-19] MEDS ORDERED: ALBUTEROL MEDNEB 2.5 mg/3ml NEB ONE ×3 (06:16→12:13)
[2022-07-19] MEDS: IPRATROPIUM BROM 0.5 MG/2.5ML INH SOL NEB SCH ×3 (06:50→18:18)
[2022-07-19] MEDS: CEFEPIME 2 GM in SODIUM CHL 0.9% 50 ML IV SCH ×2 (10:43→22:10)
[2022-07-19 12:24] LABS: INR 0.93 (0.9-1.15); Partial Thromboplastin Time 24.5 sec (24.6-33.4)
[2022-07-19] MEDS: ALBUTEROL SULF 2.5 MG/0.5ML(0.5%) NEB SOLN NEB SCH ×2 (12:32→18:18)
[2022-07-19] MEDS: INSULIN LANTUS (GLARGINE) 1 /0.01ml (100units/ml) SC SCH (12:34)
[2022-07-19] MEDS: ENOXAPARIN SOD 40 MG/0.4 ML SYRINGE SC SCH (12:46)
[2022-07-19] MEDS: PANTOPRAZOLE 40 MG TAB PO SCH ×2 (12:50→21:30)
[2022-07-19] MEDS: HYDROcodone-ACET 5/325MG TAB PO PRN ×3 (12:54→21:26)
[2022-07-19] MEDS: glipiZIDE 5 MG TAB PO SCH ×2 (13:44→21:30)
[2022-07-19] MEDS: NOREPINEPHRINE 8 MG/250ML KIT 250 ML IV SCH (16:15)
[2022-07-19] MEDS: diphenhdrAMINE HCL 25 MG CAP PO SCH (21:30)
[2022-07-19] MEDS: ALPRAZolam 0.25 MG TAB GT SCH (21:30)
[2022-07-20] VITALS (20 sets, daily range): BP systolic 90–154; BP diastolic 26–68
[2022-07-20] MEDS: MORPHINE SULFATE INJ 2 MG/ml SYRG IV PRN ×4 (05:06→18:25)
[2022-07-20] MEDS ORDERED: ALBUTEROL MEDNEB 2.5 mg/3ml NEB ONE ×3 (05:34→19:35)
[2022-07-20] MEDS: IPRATROPIUM BROM 0.5 MG/2.5ML INH SOL NEB SCH ×3 (05:47→22:36)
[2022-07-20] MEDS: ALBUTEROL SULF 2.5 MG/0.5ML(0.5%) NEB SOLN NEB SCH ×3 (05:47→22:36)
[2022-07-20 07:44] LABS: Basophils # (auto) 0 10 ^3/uL (0-0.2); Basophils % (auto) 0.5 % (0.0-2.0); Hematocrit 28.2 % (36.0-46.0); Hemoglobin 8.7 g/dL (12.2-16.2); Lymphocytes # (auto) 1.5 10 ^3/uL (0.4-5.4); Mean Corpuscular Volume 79.1 fL (80.0-100.0); Monocytes # (auto) 0.5 10 ^3/uL (0-1.3); Nucleated Red Blood Cells % 0.4 %; Red Blood Cells 3.56 10^6/uL (4.0-5.20)
[2022-07-20 07:48] LABS: Eosinophils # (auto) 0.3 10 ^3/uL (0-0.8); Eosinophils % (auto) 4.9 % (0.0-7.0); Lymphocytes % (auto) 28.9 % (10.0-50.0); Mean Corpuscular Hemoglobin 24.5 pg (28.0-32.0); Mean Corpuscular Hgb Conc. 30.9 g/dL (32.0-36.0); Monocytes % (auto) 9.2 % (0.0-12.0); Neutrophils # (auto) 2.9 10 ^3/uL (1.6-8.6); Neutrophils % (auto) 56.5 % (37.0-80.0); Red Cell Distribution Width 17.3 % (11.8-14.3); White Blood Cell 5.2 10^3/uL (4.4-10.8)
[2022-07-20 08:01] LABS: Calcium 8.4 mg/dL (8.5-10.1); Potassium 4.5 mmol/L (3.5-5.1)
[2022-07-20 08:07] LABS: Albumin 2.7 g/dL (3.4-5.0); BUN/Creatinine Ratio 17.3; Bilirubin, Total 0.4 mg/dL (0.2-1.0); Total Protein 5.7 g/dL (6.4-8.2)
[2022-07-20] MEDS ORDERED: LIDOCAINE 1% (LOCAL ANESTH.) PF 5ml SDV ID ONE (09:45)
[2022-07-20] MEDS: PANTOPRAZOLE 40 MG TAB PO SCH ×2 (10:17→22:13)
[2022-07-20] MEDS: ENOXAPARIN SOD 40 MG/0.4 ML SYRINGE SC SCH (10:17)
[2022-07-20] MEDS: INSULIN LANTUS (GLARGINE) 1 /0.01ml (100units/ml) SC SCH (10:22)
[2022-07-20] MEDS: SODIUM CHLOR 0.9% PF (SALINE LOCK) 10ML VIAL/SYR IV SCH ×2 (10:33→22:18)
[2022-07-20] MEDS: ONDANSETRON HCL 4 MG/2 ML VIAL IV PRN (10:48)
[2022-07-20] MEDS: CEFEPIME 2 GM in SODIUM CHL 0.9% 50 ML IV SCH ×2 (11:00→22:39)
[2022-07-20] MEDS: glipiZIDE 5 MG TAB PO SCH ×2 (13:00→22:17)
[2022-07-20] MEDS: VANCOMYCIN 1GM/250ML 250 ML IV SCH (15:08)
[2022-07-20] MEDS: HYDROcodone-ACET 5/325MG TAB PO PRN (20:35)
[2022-07-20] MEDS: ALPRAZolam 0.25 MG TAB PO SCH (22:07)
[2022-07-20] MEDS: diphenhdrAMINE HCL 25 MG CAP PO SCH (22:12)
[2022-07-21] MEDS: MORPHINE SULFATE INJ 2 MG/ml SYRG IV PRN ×4 (02:46→20:54)
[2022-07-21 05:00] VITALS: BP 158/67
[2022-07-21] MEDS: ONDANSETRON HCL 4 MG/2 ML VIAL IV PRN ×4 (05:14→21:32)
[2022-07-21] MEDS ORDERED: ALBUTEROL MEDNEB 2.5 mg/3ml NEB ONE ×3 (05:46→18:25)
[2022-07-21] MEDS: ALBUTEROL SULF 2.5 MG/0.5ML(0.5%) NEB SOLN NEB SCH ×3 (06:52→18:35)
[2022-07-21] MEDS: IPRATROPIUM BROM 0.5 MG/2.5ML INH SOL NEB SCH ×3 (06:52→18:35)
[2022-07-21 08:00] VITALS: BP 160/80
[2022-07-21] MEDS: CEFEPIME 2 GM in SODIUM CHL 0.9% 50 ML IV SCH ×2 (09:27→21:32)
[2022-07-21] MEDS ORDERED: FLUMAZENIL 0.1 MG/ML INJ 10ML MDV IV ONE (09:28)
[2022-07-21] MEDS: INSULIN LANTUS (GLARGINE) 1 /0.01ml (100units/ml) SC SCH (09:28)
[2022-07-21] MEDS: SODIUM CHLOR 0.9% PF (SALINE LOCK) 10ML VIAL/SYR IV SCH ×2 (09:28→20:55)
[2022-07-21] MEDS: glipiZIDE 5 MG TAB PO SCH ×2 (09:28→21:32)
[2022-07-21] MEDS ORDERED: NALOXONE HCL 0.4 MG/ML VIAL ONE (09:28)
[2022-07-21] MEDS: PANTOPRAZOLE 40 MG TAB PO SCH ×2 (09:28→20:55)
[2022-07-21] MEDS ORDERED: LIDOCAINE VISCOUS 2% 15ML UD ONE (09:29)
[2022-07-21] MEDS: hydrALAZINE HCL 20 MG/ML VL IV PRN (11:15)
[2022-07-21 11:52] VITALS: BP 179/75
[2022-07-21] MEDS: VANCOMYCIN 1GM/250ML 250 ML IV SCH (14:03)
[2022-07-21] MEDS: MIDAZOLAM HCL 2MG/2ML 2ml VIAL (1mg/ml) ONE ×2 (16:06→16:14)
[2022-07-21] MEDS: fentaNYL CITRATE 100 MCG/2 ML VL ONE ×2 (16:06→16:12)
[2022-07-21] MEDS: diphenhdrAMINE HCL 50 MG/1 ML VL ONE ×2 (16:11→16:15)
[2022-07-21] MEDS: HYDROcodone-ACET 5/325MG TAB PO PRN ×2 (19:01→23:49)
[2022-07-21] MEDS: diphenhdrAMINE HCL 25 MG CAP PO SCH (20:55)
[2022-07-21] MEDS: ALPRAZolam 0.25 MG TAB PO SCH (20:56)
[2022-07-21 22:00] VITALS: BP 158/78
[2022-07-22] VITALS (13 sets, daily range): BP systolic 122–212; BP diastolic 66–107
[2022-07-22] MEDS: ONDANSETRON HCL 4 MG/2 ML VIAL IV PRN ×4 (02:41→22:45)
[2022-07-22] MEDS: MORPHINE SULFATE INJ 2 MG/ml SYRG IV PRN ×3 (02:41→22:45)
[2022-07-22] MEDS ORDERED: ALBUTEROL MEDNEB 2.5 mg/3ml NEB ONE ×3 (05:59→18:12)
[2022-07-22] MEDS: IPRATROPIUM BROM 0.5 MG/2.5ML INH SOL NEB SCH ×3 (07:11→18:26)
[2022-07-22] MEDS: ALBUTEROL SULF 2.5 MG/0.5ML(0.5%) NEB SOLN NEB SCH ×3 (07:11→18:26)
[2022-07-22] MEDS: hydrALAZINE HCL 20 MG/ML VL IV PRN (08:33)
[2022-07-22] MEDS: CEFEPIME 2 GM in SODIUM CHL 0.9% 50 ML IV SCH ×2 (09:52→22:44)
[2022-07-22] MEDS: glipiZIDE 5 MG TAB PO SCH (09:53)
[2022-07-22] MEDS: SODIUM CHLOR 0.9% PF (SALINE LOCK) 10ML VIAL/SYR IV SCH ×2 (09:53→22:43)
[2022-07-22] MEDS: PANTOPRAZOLE 40 MG TAB PO SCH ×2 (09:54→22:43)
[2022-07-22] MEDS: INSULIN LANTUS (GLARGINE) 1 /0.01ml (100units/ml) SC SCH (10:04)
[2022-07-22] MEDS ORDERED: METOPROLOL SUCCINATE XL 50 MG TAB PO ONE (11:15)
[2022-07-22] MEDS: VANCOMYCIN 1GM/250ML 250 ML IV SCH (14:00)
[2022-07-22] MEDS ORDERED: fentaNYL CITRATE 100 MCG/2 ML VL IV ONE (16:20)
[2022-07-22] MEDS ORDERED: MIDAZOLAM HCL 2MG/2ML 2ml VIAL (1mg/ml) ONE (16:24)
[2022-07-22] MEDS ORDERED: LIDOCAINE VISCOUS 2% 15ML UD ONE (16:24)
[2022-07-22] MEDS ORDERED: fentaNYL CITRATE 100 MCG/2 ML VL ONE (16:24)
[2022-07-22] MEDS ORDERED: LIDOCAINE VISCOUS 2% 15ML UD PO ONE (16:30)
[2022-07-22] MEDS ORDERED: INSULIN LANTUS (GLARGINE) 1 /0.01ml (100units/ml) SC ONE (16:30)
[2022-07-22] MEDS ORDERED: MIDAZOLAM HCL 2MG/2ML 2ml VIAL (1mg/ml) IV ONE (16:30)
[2022-07-22 20:04] LABS: Basophils # (auto) 0 10 ^3/uL (0-0.2); Eosinophils # (auto) 0.2 10 ^3/uL (0-0.8); Lymphocytes # (auto) 1.1 10 ^3/uL (0.4-5.4); Monocytes # (auto) 0.6 10 ^3/uL (0-1.3); Monocytes % (auto) 8.4 % (0.0-12.0); Neutrophils # (auto) 5.3 10 ^3/uL (1.6-8.6); Nucleated Red Blood Cells % 0.1 %; Red Blood Cells 4.38 10^6/uL (4.0-5.20); Red Cell Distribution Width 17.9 % (11.8-14.3)
[2022-07-22 20:05] LABS: Basophils % (auto) 0.4 % (0.0-2.0); Eosinophils % (auto) 3.1 % (0.0-7.0); Hematocrit 34.6 % (36.0-46.0); Hemoglobin 10.6 g/dL (12.2-16.2); Lymphocytes % (auto) 15.5 % (10.0-50.0); Mean Corpuscular Hemoglobin 24.1 pg (28.0-32.0); Mean Corpuscular Hgb Conc. 30.5 g/dL (32.0-36.0); Mean Corpuscular Volume 78.9 fL (80.0-100.0); Neutrophils % (auto) 72.6 % (37.0-80.0); White Blood Cell 7.2 10^3/uL (4.4-10.8)
[2022-07-22 20:16] LABS: % Iron Saturation 8.3 % (15-50); Anion Gap 9 (5-15); Blood Urea Nitrogen 14 mg/dL (7-18); Carbon Dioxide 24 mmol/L (21-32); Chloride 102 mmol/L (98-107); GFR African American 106 mL/min; GFR Non-African American 88 mL/min; Glucose 145 mg/dL (74-106); Potassium 4.2 mmol/L (3.5-5.1); Sodium 135 mmol/L (136-145)
[2022-07-22] MEDS: ALPRAZolam 0.25 MG TAB PO SCH (22:43)
[2022-07-22] MEDS: diphenhdrAMINE HCL 25 MG CAP PO SCH (22:43)
[2022-07-23 05:00] VITALS: BP 110/59
[2022-07-23 05:51] LABS: Basophils # (auto) 0 10 ^3/uL (0-0.2); Basophils % (auto) 0.4 % (0.0-2.0); Eosinophils # (auto) 0.3 10 ^3/uL (0-0.8); Eosinophils % (auto) 3.5 % (0.0-7.0); Hematocrit 32.2 % (36.0-46.0); Hemoglobin 9.7 g/dL (12.2-16.2); Lymphocytes # (auto) 1.7 10 ^3/uL (0.4-5.4); Lymphocytes % (auto) 19.7 % (10.0-50.0); Mean Corpuscular Hemoglobin 23.8 pg (28.0-32.0); Mean Corpuscular Hgb Conc. 30.1 g/dL (32.0-36.0); Mean Corpuscular Volume 79.1 fL (80.0-100.0); Monocytes # (auto) 0.9 10 ^3/uL (0-1.3); Monocytes % (auto) 10.5 % (0.0-12.0); Neutrophils # (auto) 5.6 10 ^3/uL (1.6-8.6); Neutrophils % (auto) 65.9 % (37.0-80.0); Nucleated Red Blood Cells % 0.1 %; Red Blood Cells 4.07 10^6/uL (4.0-5.20); Red Cell Distribution Width 17.9 % (11.8-14.3); White Blood Cell 8.4 10^3/uL (4.4-10.8)
[2022-07-23 06:11] LABS: Albumin 2.8 g/dL (3.4-5.0); Calcium 8.5 mg/dL (8.5-10.1); Potassium 3.9 mmol/L (3.5-5.1)
[2022-07-23 06:15] LABS: BUN/Creatinine Ratio 25.7; Bilirubin, Total 0.5 mg/dL (0.2-1.0)
[2022-07-23] MEDS ORDERED: ALBUTEROL MEDNEB 2.5 mg/3ml NEB ONE ×3 (06:49→18:10)
[2022-07-23 08:05] VITALS: BP 131/58
[2022-07-23] MEDS: ONDANSETRON HCL 4 MG/2 ML VIAL IV PRN ×3 (08:55→20:22)
[2022-07-23] MEDS: MORPHINE SULFATE INJ 2 MG/ml SYRG IV PRN ×3 (08:58→20:21)
[2022-07-23 09:00] VITALS: BP 131/58
[2022-07-23] MEDS: CEFEPIME 2 GM in SODIUM CHL 0.9% 50 ML IV SCH (09:25)
[2022-07-23] MEDS: PANTOPRAZOLE 40 MG TAB PO SCH ×2 (09:32→22:14)
[2022-07-23] MEDS: METOPROLOL SUCCINATE XL 50 MG TAB PO SCH (09:34)
[2022-07-23] MEDS: INSULIN LANTUS (GLARGINE) 1 /0.01ml (100units/ml) SC SCH (09:42)
[2022-07-23] MEDS: SODIUM CHLOR 0.9% PF (SALINE LOCK) 10ML VIAL/SYR IV SCH ×2 (12:14→22:14)
[2022-07-23] MEDS ORDERED: VANCOMYCIN PER PHARMACY 0 MG IV SCH (12:45)
[2022-07-23 12:50] VITALS: BP 143/63
[2022-07-23] MEDS: IPRATROPIUM BROM 0.5 MG/2.5ML INH SOL NEB SCH ×3 (14:44→18:00)
[2022-07-23] MEDS: ALBUTEROL SULF 2.5 MG/0.5ML(0.5%) NEB SOLN NEB SCH ×3 (14:45→18:00)
[2022-07-23] MEDS ORDERED: METO-6 PO (16:31)
[2022-07-23 17:00] VITALS: BP 117/50
[2022-07-23] MEDS: VANCOMYCIN 1GM/250ML 250 ML IV SCH (17:06)
[2022-07-23] MEDS: CEFTRIAXONE SODIUM 2 GM in D5W 5% 50 ML IV SCH (20:49)
[2022-07-23] MEDS: diphenhdrAMINE HCL 25 MG CAP PO SCH (22:14)
[2022-07-23] MEDS: ALPRAZolam 0.25 MG TAB PO SCH (22:14)
[2022-07-23 22:20] VITALS: BP 153/56
[2022-07-24] MEDS: ONDANSETRON HCL 4 MG/2 ML VIAL IV PRN ×5 (00:46→22:43)
[2022-07-24] MEDS: MORPHINE SULFATE INJ 2 MG/ml SYRG IV PRN ×6 (00:49→22:44)
[2022-07-24 01:00] VITALS: BP 153/56
[2022-07-24] MEDS: hydrALAZINE HCL 20 MG/ML VL IV PRN ×2 (01:56→11:30)
[2022-07-24] MEDS: HYDROcodone-ACET 5/325MG TAB PO PRN ×2 (02:05→19:51)
[2022-07-24 05:50] VITALS: BP 125/54
[2022-07-24] MEDS ORDERED: ALBUTEROL MEDNEB 2.5 mg/3ml NEB ONE ×3 (05:56→17:37)
[2022-07-24] MEDS: ALBUTEROL SULF 2.5 MG/0.5ML(0.5%) NEB SOLN NEB SCH ×4 (06:07→18:13)
[2022-07-24] MEDS: IPRATROPIUM BROM 0.5 MG/2.5ML INH SOL NEB SCH ×4 (06:07→18:13)
[2022-07-24] MEDS: PANTOPRAZOLE 40 MG TAB PO SCH ×2 (09:07→22:22)
[2022-07-24] MEDS: METOPROLOL SUCCINATE XL 50 MG TAB PO SCH (09:09)
[2022-07-24 09:53] VITALS: BP 135/60
[2022-07-24] MEDS: INSULIN LANTUS (GLARGINE) 1 /0.01ml (100units/ml) SC SCH (10:13)
[2022-07-24] MEDS: VANCOMYCIN 1GM/250ML 250 ML IV SCH (11:35)
[2022-07-24] MEDS: SODIUM CHLOR 0.9% PF (SALINE LOCK) 10ML VIAL/SYR IV SCH ×2 (13:57→22:21)
[2022-07-24 16:51] VITALS: BP 125/43
[2022-07-24] MEDS: CEFTRIAXONE SODIUM 2 GM in D5W 5% 50 ML IV SCH (20:14)
[2022-07-24 22:00] VITALS: BP 159/63
[2022-07-24] MEDS: ALPRAZolam 0.25 MG TAB PO SCH (22:21)
[2022-07-24] MEDS: diphenhdrAMINE HCL 25 MG CAP PO SCH (22:22)
[2022-07-25] MEDS: MORPHINE SULFATE INJ 2 MG/ml SYRG IV PRN ×3 (03:02→16:35)
[2022-07-25] MEDS: ONDANSETRON HCL 4 MG/2 ML VIAL IV PRN ×4 (03:03→22:19)
[2022-07-25 05:00] VITALS: BP 149/67
[2022-07-25] MEDS: VANCOMYCIN 1GM/250ML 250 ML IV SCH ×2 (05:25→23:38)
[2022-07-25] MEDS: HYDROcodone-ACET 5/325MG TAB PO PRN (05:28)
[2022-07-25] MEDS ORDERED: ALBUTEROL MEDNEB 2.5 mg/3ml NEB ONE ×3 (05:36→17:41)
[2022-07-25] MEDS: IPRATROPIUM BROM 0.5 MG/2.5ML INH SOL NEB SCH ×4 (06:00→18:00)
[2022-07-25] MEDS: ALBUTEROL SULF 2.5 MG/0.5ML(0.5%) NEB SOLN NEB SCH ×4 (06:00→18:00)
[2022-07-25 08:00] VITALS: BP 132/72
[2022-07-25 09:00] VITALS: BP 132/72
[2022-07-25] MEDS: METOPROLOL SUCCINATE XL 50 MG TAB PO SCH (09:02)
[2022-07-25] MEDS: INSULIN LANTUS (GLARGINE) 1 /0.01ml (100units/ml) SC SCH (09:54)
[2022-07-25] MEDS: PANTOPRAZOLE 40 MG TAB PO SCH ×2 (10:22→22:08)
[2022-07-25] MEDS: SODIUM CHLOR 0.9% PF (SALINE LOCK) 10ML VIAL/SYR IV SCH ×2 (10:23→22:08)
[2022-07-25 13:00] VITALS: BP_SYST 132; BP_SYST 140; BP_DIAS 63; BP_DIAS 72
[2022-07-25 17:00] VITALS: BP 189/78
[2022-07-25] MEDS: hydrALAZINE HCL 20 MG/ML VL IV PRN (18:10)
[2022-07-25] MEDS ORDERED: IPRATROPIUM BROM 0.5 MG/2.5ML INH SOL NEB PRN (18:45)
[2022-07-25] MEDS ORDERED: ALBUTEROL MEDNEB 2.5 mg/3ml NEB NEB PRN (19:15)
[2022-07-25] MEDS: ACETAMINOPHEN 325 MG TAB PO PRN (20:21)
[2022-07-25] MEDS: CEFTRIAXONE SODIUM 2 GM in D5W 5% 50 ML IV SCH (20:21)
[2022-07-25 22:00] VITALS: BP 124/59
[2022-07-25] MEDS: ALPRAZolam 0.25 MG TAB PO SCH (22:08)
[2022-07-25] MEDS: diphenhdrAMINE HCL 25 MG CAP PO SCH (22:09)
[2022-07-26 05:00] VITALS: BP 111/45
[2022-07-26 08:00] VITALS: BP 150/50
[2022-07-26 09:00] VITALS: BP 150/50
[2022-07-26] MEDS: ONDANSETRON HCL 4 MG/2 ML VIAL IV PRN ×2 (09:16→16:03)
[2022-07-26] MEDS: METOPROLOL SUCCINATE XL 50 MG TAB PO SCH (09:22)
[2022-07-26] MEDS: PANTOPRAZOLE 40 MG TAB PO SCH (09:23)
[2022-07-26] MEDS: SODIUM CHLOR 0.9% PF (SALINE LOCK) 10ML VIAL/SYR IV SCH (09:23)
[2022-07-26] MEDS: INSULIN LANTUS (GLARGINE) 1 /0.01ml (100units/ml) SC SCH (09:31)
[2022-07-26] MEDS: ACETAMINOPHEN 325 MG TAB PO PRN ×2 (09:54→16:03)
[2022-07-26 13:00] VITALS: BP 153/70
[2022-07-26 13:03] VITALS: BP 153/70
[2022-07-26] MEDS: VANCOMYCIN 1GM/250ML 250 ML IV SCH (16:43)
[2022-07-26 17:00] VITALS: BP 143/72
== END 2022-07-26 20:30 | disposition home health service (06) | DRG 871 ==
LOC: EDBD 10:07 → ER 10:07 → TELE 15:48 → TELE-CENTR 22:07 → ICU WEST 07-15 17:04 → TELE-EAST 07-20 17:37
PROVIDERS: ADMIT Internal Medicine; ATTEND Internal Medicine
PROC: 05HB33Z Insertion of Infusion Device into Right Basilic Vein, Percutaneous Approach (ICD-10-PCS; 2022-07-16)
PROC: B54MZZA Ultrasonography of Right Upper Extremity Veins, Guidance (ICD-10-PCS; 2022-07-16)
PROC: 02HV33Z Insertion of Infusion Device into Superior Vena Cava, Percutaneous Approach (ICD-10-PCS; 2022-07-20)
PROC: B548ZZA Ultrasonography of Superior Vena Cava, Guidance (ICD-10-PCS; 2022-07-20)
PROC: 0DB68ZX Excision of Stomach, Via Natural or Artificial Opening Endoscopic, Diagnostic (ICD-10-PCS; 2022-07-21)
PROC: 0DB48ZX Excision of Esophagogastric Junction, Via Natural or Artificial Opening Endoscopic, Diagnostic (ICD-10-PCS; 2022-07-21)
PROC: 0DB98ZX Excision of Duodenum, Via Natural or Artificial Opening Endoscopic, Diagnostic (ICD-10-PCS; principal; 2022-07-21 16:00)
PROC: B24BZZ4 Ultrasonography of Heart with Aorta, Transesophageal (ICD-10-PCS; 2022-07-22)
DX: A41.9 Sepsis, unspecified organism (principal); I21.4 Non-ST elevation (NSTEMI) myocardial infarction; R65.21 Severe sepsis with septic shock; N17.0 Acute kidney failure with tubular necrosis; J96.00 Acute respiratory failure, unspecified whether with hypoxia or hypercapnia; I50.32 Chronic diastolic (congestive) heart failure; Z68.43 Body mass index [BMI] 50.0-59.9, adult; R44.3 Hallucinations, unspecified; N39.0 Urinary tract infection, site not specified; I13.0 Hypertensive heart and chronic kidney disease with heart failure and stage 1 through stage 4 chronic kidney disease, or unspecified chronic kidney disease; J44.9 Chronic obstructive pulmonary disease, unspecified; E87.5 Hyperkalemia; I48.91 Unspecified atrial fibrillation; Z74.01 Bed confinement status; D50.9 Iron deficiency anemia, unspecified; K29.70 Gastritis, unspecified, without bleeding; I34.81 Nonrheumatic mitral (valve) annulus calcification; E03.9 Hypothyroidism, unspecified; E66.01 Morbid (severe) obesity due to excess calories; K22.70 Barrett's esophagus without dysplasia; Z79.899 Other long term (current) drug therapy; Z20.822 Contact with and (suspected) exposure to COVID-19; M54.50 Low back pain, unspecified; N18.9 Chronic kidney disease, unspecified; G40.909 Epilepsy, unspecified, not intractable, without status epilepticus; K31.7 Polyp of stomach and duodenum; E11.65 Type 2 diabetes mellitus with hyperglycemia; F41.9 Anxiety disorder, unspecified; K21.9 Gastro-esophageal reflux disease without esophagitis; K44.9 Diaphragmatic hernia without obstruction or gangrene; Z79.4 Long term (current) use of insulin; Z80.0 Family history of malignant neoplasm of digestive organs; Z82.49 Family history of ischemic heart disease and other diseases of the circulatory system; Z87.440 Personal history of urinary (tract) infections; Z90.710 Acquired absence of both cervix and uterus; I25.2 Old myocardial infarction; Z90.49 Acquired absence of other specified parts of digestive tract; Z86.19 Personal history of other infectious and parasitic diseases
CPT/HCPCS: 36415; 36569; 36600; 70551; 71045; 76775; 80048; 80053; 80069; 80202; 81001; 82306; 82565; 82570; 82805; 82962; 83036; 83540; 83550; 83605; 83880; 83970; 84100; 84132; 84156; 84300; 84484; 85025; 85379; 85610; 85730; 87040; 87081; 87086; 87426; 93005; 93306; 93312; 94640; 96365; 96375; 97163; 99152; 99291; G0378; J0696; J1815; J2250; J2405; J7060

== ENCOUNTER 2022-08-06 11:33 | Inpatient (IN) | payer OTHER, MEDICAID ==
[~2022-08-06] VITALS: Ht 165.1 cm; Wt 88.5 kg
[~2022-08-06 11:33] MED LIST changes: -AML5T PO; +BUSP10TA90 PO; +CITA10TA8 PO; -CLON0.1T PO; +LEVE500T32 PO; -LEVO500T31 PO; +LEVO50TA7 PO; +METO-6 PO; -METO10TA3 PO; -OMEP20TA PO; +SUCR1SUS5 PO; +TRAM50TA2 PO
[2022-08-06] MEDS ORDERED: PANTOPRAZOLE 40 MG/10 ML VIAL INJ IV ONE (12:00)
[2022-08-06] MEDS ORDERED: ONDANSETRON HCL 4 MG/2 ML VIAL IV ONE (12:00)
[2022-08-06] MEDS ORDERED: MORPHINE SULFATE 4 MG/ML SYR/VIAL IV ONE (12:00)
[2022-08-06 12:20] LABS: Basophils # (auto) 0 10 ^3/uL (0-0.2); Basophils % (auto) 0.6 % (0.0-2.0); Eosinophils # (auto) 0.1 10 ^3/uL (0-0.8); Eosinophils % (auto) 1.7 % (0.0-7.0); Hematocrit 28.6 % (36.0-46.0); Hemoglobin 8.9 g/dL (12.2-16.2); Lymphocytes # (auto) 1.4 10 ^3/uL (0.4-5.4); Lymphocytes % (auto) 17.7 % (10.0-50.0); Mean Corpuscular Hemoglobin 23.9 pg (28.0-32.0); Mean Corpuscular Hgb Conc. 31.3 g/dL (32.0-36.0); Mean Corpuscular Volume 76.5 fL (80.0-100.0); Monocytes # (auto) 0.8 10 ^3/uL (0-1.3); Monocytes % (auto) 10.3 % (0.0-12.0); Neutrophils # (auto) 5.6 10 ^3/uL (1.6-8.6); Neutrophils % (auto) 69.7 % (37.0-80.0); Red Blood Cells 3.74 10^6/uL (4.0-5.20); Red Cell Distribution Width 17.5 % (11.8-14.3)
[2022-08-06 12:44] LABS: Albumin 2.8 g/dL (3.4-5.0); Calcium 8.7 mg/dL (8.5-10.1); Potassium 5.1 mmol/L (3.5-5.1)
[2022-08-06 12:49] LABS: BUN/Creatinine Ratio 14.8; Bilirubin, Total 0.3 mg/dL (0.2-1.0); Total Protein 6.8 g/dL (6.4-8.2)
[2022-08-06 13:09] LABS: Magnesium 2.2 mg/dL (1.6-2.6)
[2022-08-06 13:30] LABS: INR 0.94 (0.9-1.15); Partial Thromboplastin Time 22.7 sec (24.6-33.4)
[2022-08-06] MEDS ORDERED: DOCUSATE SOD 100 MG CAP PO PRN (17:30)
[2022-08-06] MEDS ORDERED: VANCOMYCIN PER PHARMACY 0 MG IV SCH (17:30)
[2022-08-06] MEDS ORDERED: NITROGLYCERIN 0.4 MG SL TAB SL PRN (17:30)
[2022-08-06] MEDS ORDERED: ACETAMINOPHEN 325 MG TAB PO PRN (17:30)
[2022-08-06] MEDS ORDERED: VANCOMYCIN 1GM/250ML 250 ML IV ONE (18:00)
[2022-08-06] MEDS: SUCRALFATE 1 GM/10 ML ORAL SUSP PO SCH ×2 (18:16→22:48)
[2022-08-06] MEDS: ONDANSETRON HCL 4 MG/2 ML VIAL IV PRN (21:11)
[2022-08-06] MEDS: MORPHINE SULFATE INJ 2 MG/ml SYRG IV PRN (21:12)
[2022-08-06] MEDS: SODIUM CHLOR 0.9% PF (SALINE LOCK) 10ML VIAL/SYR IV SCH (22:10)
[2022-08-06] MEDS: ACCU-CHEK COMFORT CURVE STRIP VI SCH (22:34)
[2022-08-06] MEDS: levETIRAcetam 500 MG TAB PO SCH (22:48)
[2022-08-06] MEDS: glipiZIDE 5 MG TAB PO SCH (22:49)
[2022-08-06] MEDS: busPIRone HCL 10 MG TAB PO SCH (22:49)
[2022-08-06] MEDS: InsuLIN REG 1unit/0.01ml Soln (100units/ml) SC SCH (22:50)
[2022-08-06] MEDS: CITALOPRAM HYDROBR 20 MG TAB PO SCH (22:50)
[2022-08-07] MEDS: ONDANSETRON HCL 4 MG/2 ML VIAL IV PRN ×2 (01:30→06:26)
[2022-08-07] MEDS: MORPHINE SULFATE INJ 2 MG/ml SYRG IV PRN ×4 (01:31→18:44)
[2022-08-07 04:38] LABS: Basophils # (auto) 0 10 ^3/uL (0-0.2); Basophils % (auto) 0.4 % (0.0-2.0); Eosinophils # (auto) 0 10 ^3/uL (0-0.8); Eosinophils % (auto) 0.4 % (0.0-7.0); Hematocrit 25.9 % (36.0-46.0); Hemoglobin 8.3 g/dL (12.2-16.2); Lymphocytes # (auto) 1.4 10 ^3/uL (0.4-5.4); Mean Corpuscular Hemoglobin 24.5 pg (28.0-32.0); Mean Corpuscular Hgb Conc. 32.2 g/dL (32.0-36.0); Mean Corpuscular Volume 75.9 fL (80.0-100.0); Monocytes # (auto) 0.9 10 ^3/uL (0-1.3); Monocytes % (auto) 10.8 % (0.0-12.0); Neutrophils % (auto) 71.4 % (37.0-80.0); Red Blood Cells 3.41 10^6/uL (4.0-5.20); White Blood Cell 8.4 10^3/uL (4.4-10.8)
[2022-08-07 05:12] LABS: Calcium 8.8 mg/dL (8.5-10.1); Potassium 4.7 mmol/L (3.5-5.1)
[2022-08-07 05:15] LABS: Albumin 2.8 g/dL (3.4-5.0); BUN/Creatinine Ratio 14.3
[2022-08-07 05:18] LABS: Bilirubin, Total 0.3 mg/dL (0.2-1.0); Total Protein 6.7 g/dL (6.4-8.2)
[2022-08-07] MEDS: SUCRALFATE 1 GM/10 ML ORAL SUSP PO SCH ×4 (06:19→22:51)
[2022-08-07] MEDS: HYDROcodone-ACET 5/325MG TAB PO PRN (06:19)
[2022-08-07] MEDS: SODIUM CHLOR 0.9% PF (SALINE LOCK) 10ML VIAL/SYR IV SCH ×3 (06:20→22:47)
[2022-08-07] MEDS: ACCU-CHEK COMFORT CURVE STRIP VI SCH ×4 (08:00→22:56)
[2022-08-07] MEDS: LEVOTHYROXINE SODIUM 50 MCG TAB PO SCH (08:00)
[2022-08-07] MEDS: InsuLIN REG 1unit/0.01ml Soln (100units/ml) SC SCH ×4 (08:20→22:50)
[2022-08-07] MEDS: DEXTROSE (50%) 50ML SYRG IV PRN ×2 (08:39→23:17)
[2022-08-07] MEDS: busPIRone HCL 10 MG TAB PO SCH ×2 (10:00→22:51)
[2022-08-07] MEDS: CITALOPRAM HYDROBR 20 MG TAB PO SCH ×2 (10:00→22:51)
[2022-08-07] MEDS: glipiZIDE 5 MG TAB PO SCH ×2 (10:00→22:52)
[2022-08-07] MEDS: levETIRAcetam 500 MG TAB PO SCH ×2 (10:00→22:53)
[2022-08-07] MEDS: METOPROLOL SUCCINATE XL 50 MG TAB PO SCH (10:00)
[2022-08-07] MEDS: CEFTRIAXONE SODIUM 2 GM in D5W 5% 50 ML IV SCH (10:46)
[2022-08-07] MEDS: PANTOPRAZOLE 40 MG/10 ML VIAL INJ IV SCH (10:48)
[2022-08-07] MEDS: INSULIN LANTUS (GLARGINE) 1 /0.01ml (100units/ml) SC SCH (13:41)
[2022-08-07] MEDS: D5W 5% 1,000 ML IV SCH (13:47)
[2022-08-07] MEDS ORDERED: hydrALAZINE HCL 20 MG/ML VL IV SCH (14:00)
[2022-08-07] MEDS: VANCOMYCIN 1GM/250ML 250 ML IV SCH (14:33)
[2022-08-07 20:52] LABS: Urine Bacteria FEW /hpf (None Seen); Urine Blood 1+ /uL (Negative); Urine Budding Yeast OCCASIONAL /hpf (None Seen); Urine Mucus FEW (None Seen); Urine Specific Gravity 1.013 (1.001-1.035); Urine WBC 1888 /hpf (0 - 5); Urine WBC Clumps PRESENT /hpf (None Seen)
[2022-08-07] MEDS ORDERED: DEXTROSE 50% SYRINGE 50 ML IV ONE (23:13)
[2022-08-08 01:46] VITALS: BP 145/68
[2022-08-08] MEDS: MORPHINE SULFATE INJ 2 MG/ml SYRG IV PRN ×4 (01:52→14:29)
[2022-08-08] MEDS: D5W 5% 1,000 ML IV SCH ×3 (02:00→23:39)
[2022-08-08 05:00] VITALS: BP 161/71
[2022-08-08] MEDS: LEVOTHYROXINE SODIUM 50 MCG TAB PO SCH (05:27)
[2022-08-08] MEDS: SUCRALFATE 1 GM/10 ML ORAL SUSP PO SCH ×4 (05:27→21:59)
[2022-08-08] MEDS: SODIUM CHLOR 0.9% PF (SALINE LOCK) 10ML VIAL/SYR IV SCH ×3 (05:28→23:08)
[2022-08-08] MEDS ORDERED: hydrALAZINE HCL 20 MG/ML VL IV PRN (05:30)
[2022-08-08] MEDS: VANCOMYCIN 1GM/250ML 250 ML IV SCH (05:57)
[2022-08-08] MEDS: ACCU-CHEK COMFORT CURVE STRIP VI SCH ×4 (06:14→22:00)
[2022-08-08] MEDS: InsuLIN REG 1unit/0.01ml Soln (100units/ml) SC SCH ×4 (06:14→22:00)
[2022-08-08] MEDS: PANTOPRAZOLE 40 MG/10 ML VIAL INJ IV SCH (08:56)
[2022-08-08] MEDS: INSULIN LANTUS (GLARGINE) 1 /0.01ml (100units/ml) SC SCH (08:56)
[2022-08-08 09:00] VITALS: BP 166/67
[2022-08-08] MEDS: busPIRone HCL 10 MG TAB PO SCH ×2 (10:00→21:59)
[2022-08-08] MEDS: METOPROLOL SUCCINATE XL 50 MG TAB PO SCH (10:00)
[2022-08-08] MEDS: glipiZIDE 5 MG TAB PO SCH ×2 (10:00→22:00)
[2022-08-08] MEDS: levETIRAcetam 500 MG TAB PO SCH ×2 (10:00→22:00)
[2022-08-08] MEDS: CITALOPRAM HYDROBR 20 MG TAB PO SCH ×2 (10:00→22:00)
[2022-08-08] MEDS: ONDANSETRON HCL 4 MG/2 ML VIAL IV PRN ×2 (10:15→14:29)
[2022-08-08 13:00] VITALS: BP 133/76
[2022-08-08 17:00] VITALS: BP 165/62
[2022-08-08] MEDS: CEFTRIAXONE SODIUM 2 GM in D5W 5% 50 ML IV SCH (18:20)
[2022-08-08] MEDS: traMADol HCL 50 MG TAB PO PRN (21:59)
[2022-08-08 22:00] VITALS: BP 142/53
[2022-08-09] MEDS: VANCOMYCIN 1GM/250ML 250 ML IV SCH
[2022-08-09] MEDS: ONDANSETRON HCL 4 MG/2 ML VIAL IV PRN ×2 (00:46→08:33)
[2022-08-09] MEDS: MORPHINE SULFATE INJ 2 MG/ml SYRG IV PRN ×4 (00:47→17:51)
[2022-08-09] MEDS: D5W 5% 1,000 ML IV SCH ×2 (04:15→14:15)
[2022-08-09] MEDS: traMADol HCL 50 MG TAB PO PRN (04:30)
[2022-08-09 05:00] VITALS: BP 159/61
[2022-08-09 05:40] LABS: Basophils # (auto) 0 10 ^3/uL (0-0.2); Basophils % (auto) 0.6 % (0.0-2.0); Eosinophils # (auto) 0.2 10 ^3/uL (0-0.8); Eosinophils % (auto) 4.8 % (0.0-7.0); Hematocrit 28.1 % (36.0-46.0); Hemoglobin 8.9 g/dL (12.2-16.2); Lymphocytes # (auto) 1.1 10 ^3/uL (0.4-5.4); Lymphocytes % (auto) 21.3 % (10.0-50.0); Mean Corpuscular Hemoglobin 24.1 pg (28.0-32.0); Mean Corpuscular Hgb Conc. 31.5 g/dL (32.0-36.0); Mean Corpuscular Volume 76.4 fL (80.0-100.0); Monocytes # (auto) 0.6 10 ^3/uL (0-1.3); Monocytes % (auto) 12.2 % (0.0-12.0); Neutrophils # (auto) 3.2 10 ^3/uL (1.6-8.6); Neutrophils % (auto) 61.1 % (37.0-80.0); Nucleated Red Blood Cells % 0.1 %; Red Blood Cells 3.68 10^6/uL (4.0-5.20); Red Cell Distribution Width 16.8 % (11.8-14.3); White Blood Cell 5.2 10^3/uL (4.4-10.8)
[2022-08-09] MEDS: SUCRALFATE 1 GM/10 ML ORAL SUSP PO SCH ×3 (06:01→17:52)
[2022-08-09] MEDS: LEVOTHYROXINE SODIUM 50 MCG TAB PO SCH (06:02)
[2022-08-09] MEDS: SODIUM CHLOR 0.9% PF (SALINE LOCK) 10ML VIAL/SYR IV SCH ×2 (06:06→12:27)
[2022-08-09 06:20] LABS: % Iron Saturation 5.2 % (15-50)
[2022-08-09] MEDS: InsuLIN REG 1unit/0.01ml Soln (100units/ml) SC SCH ×3 (06:47→17:00)
[2022-08-09] MEDS: ACCU-CHEK COMFORT CURVE STRIP VI SCH ×3 (06:48→17:38)
[2022-08-09] MEDS: PANTOPRAZOLE 40 MG/10 ML VIAL INJ IV SCH (08:17)
[2022-08-09] MEDS: METOPROLOL SUCCINATE XL 50 MG TAB PO SCH (08:17)
[2022-08-09] MEDS: levETIRAcetam 500 MG TAB PO SCH (08:18)
[2022-08-09] MEDS: CITALOPRAM HYDROBR 20 MG TAB PO SCH (08:18)
[2022-08-09] MEDS: glipiZIDE 5 MG TAB PO SCH (08:21)
[2022-08-09] MEDS: busPIRone HCL 10 MG TAB PO SCH (08:33)
[2022-08-09] MEDS: HYDROcodone-ACET 5/325MG TAB PO PRN (08:33)
[2022-08-09 09:00] VITALS: BP 171/63
[2022-08-09] MEDS: INSULIN LANTUS (GLARGINE) 1 /0.01ml (100units/ml) SC SCH (10:00)
[2022-08-09] MEDS ORDERED: VANCOMYCIN 1GM/250ML 250 ML IV SCH (11:00)
[2022-08-09] MEDS: CEFTRIAXONE SODIUM 2 GM in D5W 5% 50 ML IV SCH (12:11)
[2022-08-09 13:00] VITALS: BP 162/58
[2022-08-09 17:00] VITALS: BP 157/59
[2022-08-09 17:51] VITALS: BP 157/92
== END 2022-08-09 20:25 | disposition home health service (06) | DRG 378 ==
LOC: ER 11:33 → EDBD 11:33 → OVERFLOW 17:27 → TELE-EAST 08-07 23:37
PROVIDERS: ADMIT Nurse Practitioner Family; ATTEND Internal Medicine
DX: K92.1 Melena (principal); E44.0 Moderate protein-calorie malnutrition; I48.20 Chronic atrial fibrillation, unspecified; N39.0 Urinary tract infection, site not specified; I13.0 Hypertensive heart and chronic kidney disease with heart failure and stage 1 through stage 4 chronic kidney disease, or unspecified chronic kidney disease; I38 Endocarditis, valve unspecified; D64.9 Anemia, unspecified; E03.9 Hypothyroidism, unspecified; I50.9 Heart failure, unspecified; K21.9 Gastro-esophageal reflux disease without esophagitis; G40.909 Epilepsy, unspecified, not intractable, without status epilepticus; B18.2 Chronic viral hepatitis C; F32.A Depression, unspecified; F41.9 Anxiety disorder, unspecified; E78.5 Hyperlipidemia, unspecified; Z20.822 Contact with and (suspected) exposure to COVID-19; K22.70 Barrett's esophagus without dysplasia; E11.22 Type 2 diabetes mellitus with diabetic chronic kidney disease; F41.1 Generalized anxiety disorder; J44.9 Chronic obstructive pulmonary disease, unspecified; Z80.0 Family history of malignant neoplasm of digestive organs; Z74.01 Bed confinement status; Z79.01 Long term (current) use of anticoagulants; Z82.49 Family history of ischemic heart disease and other diseases of the circulatory system; Z90.49 Acquired absence of other specified parts of digestive tract; Z86.79 Personal history of other diseases of the circulatory system; Z87.11 Personal history of peptic ulcer disease; Z87.440 Personal history of urinary (tract) infections; N18.9 Chronic kidney disease, unspecified; Z68.29 Body mass index [BMI] 29.0-29.9, adult
CPT/HCPCS: 36415; 71045; 74176; 80053; 80202; 81001; 82378; 82962; 83540; 83550; 83690; 83735; 85025; 85610; 85730; 86850; 86870; 86900; 86901; 87040; 87081; 87086; 87088; 87426; 92610; 93005; 96374; 96375; C9113; G0378; J0696; J1815; J2405; J7060

== ENCOUNTER 2022-08-16 13:12 | Inpatient (IN) | payer OTHER, MEDICAID ==
[~2022-08-16] VITALS: Ht 157.5 cm; Wt 81.9 kg
[2022-08-16] MEDS ORDERED: GLUCAGON EMERG KIT 1mg/1ml IV ONE (14:15)
[2022-08-16 15:01] LABS: Basophils # (auto) 0.1 10 ^3/uL (0-0.2); Eosinophils # (auto) 0.2 10 ^3/uL (0-0.8); Hemoglobin 9.1 g/dL (12.2-16.2); Lymphocytes # (auto) 1.8 10 ^3/uL (0.4-5.4); White Blood Cell 9.6 10^3/uL (4.4-10.8)
[2022-08-16 15:02] LABS: Basophils % (auto) 0.6 % (0.0-2.0); Eosinophils % (auto) 2.3 % (0.0-7.0); Hematocrit 28.8 % (36.0-46.0); Lymphocytes % (auto) 18.3 % (10.0-50.0); Mean Corpuscular Hgb Conc. 31.6 g/dL (32.0-36.0); Mean Corpuscular Volume 75.9 fL (80.0-100.0); Monocytes # (auto) 0.5 10 ^3/uL (0-1.3); Monocytes % (auto) 5.6 % (0.0-12.0); Neutrophils # (auto) 7.1 10 ^3/uL (1.6-8.6); Neutrophils % (auto) 73.2 % (37.0-80.0); Nucleated Red Blood Cells % 0.2 %; Red Cell Distribution Width 17.4 % (11.8-14.3)
[2022-08-16 18:26] LABS: Anion Gap 6 (5-15); Blood Urea Nitrogen 21 mg/dL (7-18); Carbon Dioxide 26 mmol/L (21-32); Chloride 103 mmol/L (98-107); Glucose 95 mg/dL (74-106); Potassium 5.3 mmol/L (3.5-5.1); Sodium 135 mmol/L (136-145)
[2022-08-16 18:27] LABS: Alanine Aminotransferase 16 U/L (13-56); Albumin 2.6 g/dL (3.4-5.0); Alkaline Phosphatase 85 U/L (45-117); Aspartate Aminotransferase 21 U/L (15-37); BUN/Creatinine Ratio 23.6; Bilirubin, Total 0.2 mg/dL (0.2-1.0); Calcium 8.2 mg/dL (8.5-10.1); GFR African American 80 mL/min; GFR Non-African American 66 mL/min; Total Protein 6.6 g/dL (6.4-8.2)
[2022-08-16] MEDS ORDERED: hydrALAZINE HCL 10 MG TAB PO PRN (21:30)
[2022-08-16] MEDS ORDERED: SODIUM BICARBONATE 8.4 % INJ 50ML VIAL IV ONE (21:30)
[2022-08-16] MEDS ORDERED: ACETAMINOPHEN 325 MG TAB PO PRN (21:30)
[2022-08-16] MEDS: MORPHINE SULFATE INJ 2 MG/ml SYRG IV PRN (22:13)
[2022-08-16] MEDS: ONDANSETRON HCL 4 MG/2 ML VIAL IV PRN (22:14)
[2022-08-16 22:36] LABS: BUN/Creatinine Ratio 24.4; Calcium 8.6 mg/dL (8.5-10.1); Potassium 4.8 mmol/L (3.5-5.1)
[2022-08-16 22:49] LABS: Urine Bacteria FEW /hpf (None Seen); Urine Blood Negative /uL (Negative); Urine Budding Yeast MANY /hpf (None Seen); Urine Mucus FEW (None Seen); Urine Specific Gravity 1.014 (1.001-1.035); Urine WBC 742 /hpf (0 - 5); Urine WBC Clumps PRESENT /hpf (None Seen)
[2022-08-16] MEDS: ENOXAPARIN SOD 40 MG/0.4 ML SYRINGE SC SCH (23:26)
[2022-08-16] MEDS: levoFLOXacin 500MG 100 ML IV SCH (23:26)
[2022-08-17] MEDS: HYDROcodone-ACET 5/325MG TAB PO PRN ×2 (03:06→20:13)
[2022-08-17] MEDS ORDERED: DEXTROSE (50%) 50ML SYRG IV PRN (05:00)
[2022-08-17 06:31] LABS: Anion Gap 6 (5-15); BUN/Creatinine Ratio 21.7; Blood Urea Nitrogen 18 mg/dL (7-18); Calcium 8.6 mg/dL (8.5-10.1); Carbon Dioxide 30 mmol/L (21-32); Chloride 102 mmol/L (98-107); GFR African American 87 mL/min; GFR Non-African American 72 mL/min; Glucose 66 mg/dL (74-106); Potassium 4.9 mmol/L (3.5-5.1); Sodium 138 mmol/L (136-145)
[2022-08-17] MEDS: ACCU-CHEK COMFORT CURVE STRIP VI SCH ×4 (06:47→21:44)
[2022-08-17] MEDS: InsuLIN REG 1unit/0.01ml Soln (100units/ml) SC SCH ×4 (06:47→21:43)
[2022-08-17 06:53] LABS: Basophils # (auto) 0 10 ^3/uL (0-0.2); Basophils % (auto) 0.6 % (0.0-2.0); Eosinophils # (auto) 0.1 10 ^3/uL (0-0.8); Hematocrit 27.4 % (36.0-46.0); Hemoglobin 8.6 g/dL (12.2-16.2); Lymphocytes # (auto) 1.4 10 ^3/uL (0.4-5.4); Lymphocytes % (auto) 23.1 % (10.0-50.0); Mean Corpuscular Hemoglobin 23.5 pg (28.0-32.0); Mean Corpuscular Hgb Conc. 31.5 g/dL (32.0-36.0); Mean Corpuscular Volume 74.8 fL (80.0-100.0); Monocytes # (auto) 0.8 10 ^3/uL (0-1.3); Monocytes % (auto) 12.1 % (0.0-12.0); Neutrophils # (auto) 3.9 10 ^3/uL (1.6-8.6); Neutrophils % (auto) 62.2 % (37.0-80.0); Nucleated Red Blood Cells % 0.2 %; Red Blood Cells 3.67 10^6/uL (4.0-5.20); Red Cell Distribution Width 16.8 % (11.8-14.3); White Blood Cell 6.2 10^3/uL (4.4-10.8)
[2022-08-17] MEDS: ONDANSETRON HCL 4 MG/2 ML VIAL IV PRN ×4 (06:57→22:36)
[2022-08-17] MEDS: MORPHINE SULFATE INJ 2 MG/ml SYRG IV PRN ×4 (06:58→22:37)
[2022-08-17] MEDS: levoFLOXacin 500MG 100 ML IV SCH (11:27)
[2022-08-17] MEDS: ENOXAPARIN SOD 40 MG/0.4 ML SYRINGE SC SCH (11:27)
[2022-08-17] MEDS ORDERED: SODIUM FERR GLUC 62.5MG/5ML 125 MG in SODIUM CHL 0.9% 100 ML IV ONE (17:15)
[2022-08-17] MEDS: SUCRALFATE 1 GM/10 ML ORAL SUSP PO SCH ×2 (18:00→21:43)
[2022-08-17] MEDS: CITALOPRAM 10 MG PO SCH (21:26)
[2022-08-17] MEDS: levETIRAcetam 500 MG TAB PO SCH (21:44)
[2022-08-17] MEDS: busPIRone HCL 10 MG TAB PO SCH (21:44)
[2022-08-17] MEDS: traMADol HCL 50 MG TAB PO SCH (21:44)
[2022-08-17] MEDS: PANTOPRAZOLE 40 MG TAB PO SCH (21:44)
[2022-08-17] MEDS: ALPRAZolam 0.25 MG TAB PO SCH (21:44)
[2022-08-18] MEDS: HYDROcodone-ACET 5/325MG TAB PO PRN ×2 (04:42→15:03)
[2022-08-18] MEDS: ONDANSETRON HCL 4 MG/2 ML VIAL IV PRN ×2 (04:48→20:26)
[2022-08-18 05:00] VITALS: BP 141/43
[2022-08-18 05:08] VITALS: BP 141/43
[2022-08-18] MEDS: SUCRALFATE 1 GM/10 ML ORAL SUSP PO SCH ×4 (05:58→21:58)
[2022-08-18] MEDS: MORPHINE SULFATE INJ 2 MG/ml SYRG IV PRN ×2 (06:05→20:27)
[2022-08-18 06:40] LABS: BUN/Creatinine Ratio 17.8; Calcium 8.7 mg/dL (8.5-10.1); Potassium 4.4 mmol/L (3.5-5.1)
[2022-08-18] MEDS: ACCU-CHEK COMFORT CURVE STRIP VI SCH ×4 (06:43→21:56)
[2022-08-18] MEDS: InsuLIN REG 1unit/0.01ml Soln (100units/ml) SC SCH ×4 (06:44→21:56)
[2022-08-18] MEDS: LEVOTHYROXINE SODIUM 50 MCG TAB PO SCH (06:45)
[2022-08-18 06:48] LABS: Basophils # (auto) 0 10 ^3/uL (0-0.2); Eosinophils # (auto) 0.3 10 ^3/uL (0-0.8); Hemoglobin 8.8 g/dL (12.2-16.2); Lymphocytes # (auto) 1.2 10 ^3/uL (0.4-5.4); Monocytes # (auto) 0.6 10 ^3/uL (0-1.3); Neutrophils # (auto) 3.5 10 ^3/uL (1.6-8.6); Red Cell Distribution Width 17.2 % (11.8-14.3)
[2022-08-18 06:52] LABS: Basophils % (auto) 0.5 % (0.0-2.0); Eosinophils % (auto) 5.3 % (0.0-7.0); Hematocrit 28.1 % (36.0-46.0); Lymphocytes % (auto) 20.8 % (10.0-50.0); Mean Corpuscular Hgb Conc. 31.3 g/dL (32.0-36.0); Mean Corpuscular Volume 76.6 fL (80.0-100.0); Neutrophils % (auto) 63.4 % (37.0-80.0); Nucleated Red Blood Cells % 0.2 %; Red Blood Cells 3.66 10^6/uL (4.0-5.20); White Blood Cell 5.6 10^3/uL (4.4-10.8)
[2022-08-18 07:37] LABS: INR 1.03 (0.9-1.15); Partial Thromboplastin Time 34.1 sec (24.6-33.4)
[2022-08-18 08:00] VITALS: BP 147/58
[2022-08-18] MEDS: CITALOPRAM 10 MG PO SCH ×2 (10:00→21:58)
[2022-08-18] MEDS: levoFLOXacin 500MG 100 ML IV SCH (10:16)
[2022-08-18] MEDS: busPIRone HCL 10 MG TAB PO SCH ×2 (10:18→21:58)
[2022-08-18] MEDS: PANTOPRAZOLE 40 MG TAB PO SCH ×2 (10:19→21:58)
[2022-08-18] MEDS: levETIRAcetam 500 MG TAB PO SCH ×2 (10:19→21:58)
[2022-08-18] MEDS: traMADol HCL 50 MG TAB PO SCH (10:19)
[2022-08-18] MEDS: METOPROLOL SUCCINATE XL 50 MG TAB PO SCH (10:20)
[2022-08-18] MEDS: INSULIN LANTUS (GLARGINE) 1 /0.01ml (100units/ml) SC SCH (10:25)
[2022-08-18 12:00] VITALS: BP 149/65
[2022-08-18] MEDS: SODIUM FERR GLUC 62.5MG/5ML 125 MG in SODIUM CHL 0.9% 100 ML IV SCH (12:28)
[2022-08-18] MEDS ORDERED: FLUCONAZOLE 100 MG TAB PO ONE (13:15)
[2022-08-18 16:00] VITALS: BP 158/66
[2022-08-18] MEDS: ALPRAZolam 0.25 MG TAB PO SCH (21:58)
[2022-08-18 22:00] VITALS: BP 150/55
[2022-08-19] MEDS: HYDROcodone-ACET 5/325MG TAB PO PRN ×3 (01:07→17:50)
[2022-08-19] MEDS: ONDANSETRON HCL 4 MG/2 ML VIAL IV PRN ×4 (04:34→22:10)
[2022-08-19] MEDS: MORPHINE SULFATE INJ 2 MG/ml SYRG IV PRN ×4 (04:34→22:11)
[2022-08-19 05:00] VITALS: BP 160/47
[2022-08-19 06:07] LABS: Basophils # (auto) 0 10 ^3/uL (0-0.2); Basophils % (auto) 0.5 % (0.0-2.0); Eosinophils # (auto) 0.4 10 ^3/uL (0-0.8); Hematocrit 26.3 % (36.0-46.0); Hemoglobin 8.4 g/dL (12.2-16.2); Lymphocytes # (auto) 1.6 10 ^3/uL (0.4-5.4); Mean Corpuscular Hemoglobin 24.3 pg (28.0-32.0); Monocytes # (auto) 0.6 10 ^3/uL (0-1.3); Neutrophils # (auto) 3.7 10 ^3/uL (1.6-8.6)
[2022-08-19 06:14] LABS: Lymphocytes % (auto) 25.3 % (10.0-50.0); Mean Corpuscular Hgb Conc. 32.1 g/dL (32.0-36.0); Mean Corpuscular Volume 75.7 fL (80.0-100.0); Monocytes % (auto) 9.4 % (0.0-12.0); Neutrophils % (auto) 57.8 % (37.0-80.0); Red Blood Cells 3.47 10^6/uL (4.0-5.20); Red Cell Distribution Width 16.6 % (11.8-14.3); White Blood Cell 6.4 10^3/uL (4.4-10.8)
[2022-08-19 06:26] VITALS: BP 157/54
[2022-08-19 06:29] LABS: Potassium 4.1 mmol/L (3.5-5.1)
[2022-08-19] MEDS: SUCRALFATE 1 GM/10 ML ORAL SUSP PO SCH ×4 (06:42→23:27)
[2022-08-19] MEDS: ACCU-CHEK COMFORT CURVE STRIP VI SCH ×4 (06:42→23:27)
[2022-08-19] MEDS: InsuLIN REG 1unit/0.01ml Soln (100units/ml) SC SCH ×4 (06:42→23:34)
[2022-08-19] MEDS: LEVOTHYROXINE SODIUM 50 MCG TAB PO SCH (06:42)
[2022-08-19] MEDS: METOPROLOL SUCCINATE XL 50 MG TAB PO SCH (07:35)
[2022-08-19 08:00] VITALS: BP 150/63
[2022-08-19] MEDS: INSULIN LANTUS (GLARGINE) 1 /0.01ml (100units/ml) SC SCH (09:08)
[2022-08-19] MEDS: CITALOPRAM 10 MG PO SCH ×2 (09:18→23:26)
[2022-08-19] MEDS: FLUCONAZOLE 100 MG TAB PO SCH (09:18)
[2022-08-19] MEDS: PANTOPRAZOLE 40 MG TAB PO SCH ×2 (09:19→23:27)
[2022-08-19] MEDS: busPIRone HCL 10 MG TAB PO SCH ×2 (09:19→23:27)
[2022-08-19] MEDS: levETIRAcetam 500 MG TAB PO SCH ×2 (09:20→23:27)
[2022-08-19] MEDS: levoFLOXacin 500MG 100 ML IV SCH (09:23)
[2022-08-19 12:00] VITALS: BP 149/54
[2022-08-19] MEDS: SODIUM FERR GLUC 62.5MG/5ML 125 MG in SODIUM CHL 0.9% 100 ML IV SCH (13:38)
[2022-08-19 16:00] VITALS: BP 148/56
[2022-08-19 22:00] VITALS: BP 136/51
[2022-08-19] MEDS: ALPRAZolam 0.25 MG TAB PO SCH (23:26)
[2022-08-20 00:02] VITALS: BP 136/46
[2022-08-20 05:00] VITALS: BP 118/55
[2022-08-20] MEDS: SUCRALFATE 1 GM/10 ML ORAL SUSP PO SCH ×2 (05:54→12:00)
[2022-08-20] MEDS: HYDROcodone-ACET 5/325MG TAB PO PRN (05:54)
[2022-08-20] MEDS: ACCU-CHEK COMFORT CURVE STRIP VI SCH ×2 (06:02→11:30)
[2022-08-20] MEDS: InsuLIN REG 1unit/0.01ml Soln (100units/ml) SC SCH ×2 (06:02→11:30)
[2022-08-20] MEDS: LEVOTHYROXINE SODIUM 50 MCG TAB PO SCH (06:03)
[2022-08-20] MEDS: METOPROLOL SUCCINATE XL 50 MG TAB PO SCH (07:38)
[2022-08-20 09:00] VITALS: BP 109/72
[2022-08-20] MEDS: FLUCONAZOLE 100 MG TAB PO SCH (09:20)
[2022-08-20] MEDS: ONDANSETRON HCL 4 MG/2 ML VIAL IV PRN (09:20)
[2022-08-20] MEDS: levoFLOXacin 500MG 100 ML IV SCH (09:20)
[2022-08-20] MEDS: busPIRone HCL 10 MG TAB PO SCH (09:21)
[2022-08-20] MEDS: MORPHINE SULFATE INJ 2 MG/ml SYRG IV PRN ×2 (09:21→14:52)
[2022-08-20] MEDS: PANTOPRAZOLE 40 MG TAB PO SCH (09:21)
[2022-08-20] MEDS: levETIRAcetam 500 MG TAB PO SCH (09:22)
[2022-08-20] MEDS: INSULIN LANTUS (GLARGINE) 1 /0.01ml (100units/ml) SC SCH (09:25)
[2022-08-20] MEDS: CITALOPRAM 10 MG PO SCH (09:35)
[2022-08-20] MEDS: SODIUM FERR GLUC 62.5MG/5ML 125 MG in SODIUM CHL 0.9% 100 ML IV SCH (12:00)
[2022-08-20 12:52] VITALS: BP 147/58
[2022-08-20 13:00] VITALS: BP 147/51
[2022-08-20 15:22] VITALS: BP 142/81
== END 2022-08-20 16:14 | disposition home health service (06) | DRG 309 ==
LOC: ER 13:12 → EDBD 13:12 → TELE 21:37 → TELE-CENTR 08-18 04:18
PROVIDERS: ADMIT Nurse Practitioner Family; ATTEND Nurse Practitioner Family
DX: R00.1 Bradycardia, unspecified (principal); I13.0 Hypertensive heart and chronic kidney disease with heart failure and stage 1 through stage 4 chronic kidney disease, or unspecified chronic kidney disease; N39.0 Urinary tract infection, site not specified; Z68.43 Body mass index [BMI] 50.0-59.9, adult; I48.91 Unspecified atrial fibrillation; I50.9 Heart failure, unspecified; E87.5 Hyperkalemia; Z20.822 Contact with and (suspected) exposure to COVID-19; K21.9 Gastro-esophageal reflux disease without esophagitis; L89.159 Pressure ulcer of sacral region, unspecified stage; E11.22 Type 2 diabetes mellitus with diabetic chronic kidney disease; N18.9 Chronic kidney disease, unspecified; D63.8 Anemia in other chronic diseases classified elsewhere; E66.01 Morbid (severe) obesity due to excess calories; J44.9 Chronic obstructive pulmonary disease, unspecified; K22.70 Barrett's esophagus without dysplasia; Z74.01 Bed confinement status; Z82.49 Family history of ischemic heart disease and other diseases of the circulatory system; Z80.0 Family history of malignant neoplasm of digestive organs; Z83.3 Family history of diabetes mellitus; T50.995A Adverse effect of other drugs, medicaments and biological substances, initial encounter
CPT/HCPCS: 36415; 71045; 80048; 80053; 81001; 82962; 83605; 83880; 84484; 85025; 85610; 85730; 87040; 87081; 87086; 87088; 87426; 93005; 96374; 96375; 97110; 97163; 97530; 99291; G0378; J1815; J1956; J2405

== ENCOUNTER 2022-08-23 16:25 | Emergency (ER) | payer OTHER, MEDICAID ==
[~2022-08-23] VITALS: Ht 152.4 cm; Wt 59.0 kg
[~2022-08-23 16:25] MED LIST changes: -DIPH25TA83 PO
[2022-08-23 19:10] LABS: BUN/Creatinine Ratio 17.4; Calcium 8.3 mg/dL (8.5-10.1); Potassium 3.9 mmol/L (3.5-5.1)
[2022-08-23 19:20] LABS: Basophils % (auto) 0.7 % (0.0-2.0); Eosinophils # (auto) 0.2 10 ^3/uL (0-0.8); Eosinophils % (auto) 2.9 % (0.0-7.0); Lymphocytes # (auto) 1.9 10 ^3/uL (0.4-5.4); Lymphocytes % (auto) 24.5 % (10.0-50.0); Monocytes # (auto) 0.5 10 ^3/uL (0-1.3); Monocytes % (auto) 6.7 % (0.0-12.0); Neutrophils % (auto) 65.2 % (37.0-80.0); White Blood Cell 7.6 10^3/uL (4.4-10.8)
[2022-08-23 19:21] LABS: Basophils # (auto) 0.1 10 ^3/uL (0-0.2); Hematocrit 28.1 % (36.0-46.0); Mean Corpuscular Hemoglobin 24.8 pg (28.0-32.0); Mean Corpuscular Hgb Conc. 32.1 g/dL (32.0-36.0); Mean Corpuscular Volume 77.2 fL (80.0-100.0); Red Blood Cells 3.64 10^6/uL (4.0-5.20); Red Cell Distribution Width 17.8 % (11.8-14.3)
[2022-08-23 19:23] LABS: Bilirubin, Total 0.2 mg/dL (0.2-1.0); Total Protein 6.5 g/dL (6.4-8.2)
[2022-08-23] MEDS ORDERED: ONDANSETRON HCL 4 MG/2 ML VIAL IV ONE (20:30)
[2022-08-23] MEDS ORDERED: MORPHINE SULFATE 4 MG/ML SYR/VIAL IV ONE (20:30)
[2022-08-24] MEDS ORDERED: ONDANSETRON HCL 4 MG/2 ML VIAL IV ONE (00:30)
[2022-08-24] MEDS ORDERED: MORPHINE SULFATE 4 MG/ML SYR/VIAL IV ONE (00:30)
[2022-08-24] MEDS ORDERED: DEXTROSE (50%) 50ML SYRG IV PRN (03:15)
[2022-08-24] MEDS: ACCU-CHEK COMFORT CURVE STRIP VI SCH ×4 (06:58→22:12)
[2022-08-24] MEDS: SUCRALFATE 1 GM/10 ML ORAL SUSP PO SCH ×3 (07:03→17:11)
[2022-08-24] MEDS: MORPHINE SULFATE INJ 2 MG/ml SYRG IV PRN ×4 (07:04→22:30)
[2022-08-24] MEDS: ONDANSETRON HCL 4 MG/2 ML VIAL IV PRN ×3 (07:04→21:34)
[2022-08-24] MEDS: InsuLIN REG 1unit/0.01ml Soln (100units/ml) SC SCH ×4 (07:05→22:02)
[2022-08-24] MEDS: METOPROLOL SUCCINATE XL 50 MG TAB PO SCH (10:17)
[2022-08-24] MEDS: PANTOPRAZOLE 40 MG TAB PO SCH (10:17)
[2022-08-24] MEDS ORDERED: levETIRAcetam 500 MG TAB PO ONE (22:15)
[2022-08-25] MEDS: ONDANSETRON HCL 4 MG/2 ML VIAL IV PRN ×3 (02:25→14:43)
[2022-08-25] MEDS: MORPHINE SULFATE INJ 2 MG/ml SYRG IV PRN ×3 (02:26→14:43)
[2022-08-25] MEDS: SUCRALFATE 1 GM/10 ML ORAL SUSP PO SCH ×3 (06:54→17:00)
[2022-08-25] MEDS: levETIRAcetam 500 MG TAB PO SCH ×2 (06:55→10:00)
[2022-08-25] MEDS: ACCU-CHEK COMFORT CURVE STRIP VI SCH ×3 (06:56→17:00)
[2022-08-25] MEDS: InsuLIN REG 1unit/0.01ml Soln (100units/ml) SC SCH ×3 (06:56→17:52)
[2022-08-25] MEDS: METOPROLOL SUCCINATE XL 50 MG TAB PO SCH (10:07)
[2022-08-25] MEDS: PANTOPRAZOLE 40 MG TAB PO SCH (10:07)
[2022-08-25 17:00] VITALS: BP 141/55
== END 2022-08-25 19:07 | disposition short-term general hospital (02) ==
LOC: ER 16:25 → EDBD 16:25 → ER 08-25 18:50
DX: I63.9 Cerebral infarction, unspecified (principal); I12.0 Hypertensive chronic kidney disease with stage 5 chronic kidney disease or end stage renal disease; E09.22 Drug or chemical induced diabetes mellitus with diabetic chronic kidney disease; N18.6 End stage renal disease; N18.9 Chronic kidney disease, unspecified; I50.9 Heart failure, unspecified; D63.1 Anemia in chronic kidney disease; E66.01 Morbid (severe) obesity due to excess calories; Z68.25 Body mass index [BMI] 25.0-25.9, adult
CPT/HCPCS: 36415; 74176; 80053; 82962; 85025; 87426; 96372; 96374; 96375; 96376; 97163; 99285; J1815; J2270; J2405; 97110

== ENCOUNTER 2022-09-09 15:40 | Inpatient (IN) | payer OTHER, MEDICAID ==
[~2022-09-09] VITALS: Ht 154.9 cm; Wt 92.8 kg
[2022-09-09 16:05] LABS: Basophils # (auto) 0 10 ^3/uL (0-0.2); Basophils % (auto) 0.5 % (0.0-2.0); Eosinophils # (auto) 0.3 10 ^3/uL (0-0.8); Eosinophils % (auto) 5.1 % (0.0-7.0); Hematocrit 27.9 % (36.0-46.0); Hemoglobin 8.8 g/dL (12.2-16.2); Lymphocytes # (auto) 1.8 10 ^3/uL (0.4-5.4); Lymphocytes % (auto) 28.6 % (10.0-50.0); Mean Corpuscular Hemoglobin 24.8 pg (28.0-32.0); Mean Corpuscular Hgb Conc. 31.6 g/dL (32.0-36.0); Mean Corpuscular Volume 78.5 fL (80.0-100.0); Monocytes # (auto) 0.4 10 ^3/uL (0-1.3); Monocytes % (auto) 6.1 % (0.0-12.0); Neutrophils # (auto) 3.8 10 ^3/uL (1.6-8.6); Neutrophils % (auto) 59.7 % (37.0-80.0); Red Blood Cells 3.55 10^6/uL (4.0-5.20); Red Cell Distribution Width 18.9 % (11.8-14.3); White Blood Cell 6.5 10^3/uL (4.4-10.8)
[2022-09-09] MEDS ORDERED: SODIUM CHLORIDE 0.9% 1,000 ML IV ONE ×2 (16:15→17:00)
[2022-09-09 16:20] LABS: Albumin 2.6 g/dL (3.4-5.0); Magnesium 2.5 mg/dL (1.6-2.6)
[2022-09-09 16:26] LABS: BUN/Creatinine Ratio 29.5 (10.0-20.0); Bilirubin, Total 0.2 mg/dL (0.2-1.0); Total Protein 5.2 g/dL (6.4-8.2)
[2022-09-09] MEDS ORDERED: NOREPINEPHRINE 8 MG/250ML KIT 250 ML IV SCH (16:30)
[2022-09-09] MEDS ORDERED: fentaNYL Drip 2500mCg/250mlNS 250 ML IV SCH (16:30)
[2022-09-09 16:40] LABS: Potassium 5.8 mmol/L (3.5-5.1)
[2022-09-09] MEDS ORDERED: InsuLIN REG 1unit/0.01ml Soln (100units/ml) IV ONE (16:45)
[2022-09-09] MEDS ORDERED: CALCIUM GLUC 1,000mg/50ml-NS 50 ML IV ONE (16:45)
[2022-09-09] MEDS ORDERED: ALBUTEROL SULF 2.5 MG/0.5ML(0.5%) NEB SOLN NEB ONE (16:45)
[2022-09-09] MEDS ORDERED: DEXTROSE (50%) 50ML SYRG IV ONE (16:45)
[2022-09-09] MEDS ORDERED: SODIUM ZIRCONIUM CYCL 10 GM PAK PO ONE (16:45)
[2022-09-09] MEDS ORDERED: DEXTROSE 10% 250 ML IV ONE ×2 (17:23→17:30)
[2022-09-09 20:25] LABS: Calcium 8.2 mg/dL (8.5-10.1); Potassium 4.8 mmol/L (3.5-5.1)
[2022-09-09 20:27] LABS: BUN/Creatinine Ratio 32.6 (10.0-20.0)
[2022-09-09] MEDS ORDERED: DEXTROSE (50%) 50ML SYRG IV PRN (23:00)
[2022-09-09] MEDS ORDERED: NITROGLYCERIN 0.4 MG SL TAB SL PRN (23:00)
[2022-09-09] MEDS ORDERED: hydrALAZINE HCL 10 MG TAB PO PRN (23:00)
[2022-09-09] MEDS ORDERED: MORPHINE SULFATE INJ 2 MG/ml SYRG IV PRN (23:00)
[2022-09-09] MEDS: ACETAMINOPHEN 325 MG TAB PO PRN (23:52)
[2022-09-10 05:06] LABS: Basophils # (auto) 0 10 ^3/uL (0-0.2); Basophils % (auto) 0.7 % (0.0-2.0); Eosinophils # (auto) 0.3 10 ^3/uL (0-0.8); Eosinophils % (auto) 4.8 % (0.0-7.0); Hematocrit 26.5 % (36.0-46.0); Hemoglobin 8.3 g/dL (12.2-16.2); Lymphocytes # (auto) 1.4 10 ^3/uL (0.4-5.4); Lymphocytes % (auto) 25.9 % (10.0-50.0); Mean Corpuscular Hemoglobin 25.1 pg (28.0-32.0); Mean Corpuscular Hgb Conc. 31.4 g/dL (32.0-36.0); Mean Corpuscular Volume 79.9 fL (80.0-100.0); Monocytes # (auto) 0.4 10 ^3/uL (0-1.3); Monocytes % (auto) 6.7 % (0.0-12.0); Neutrophils # (auto) 3.3 10 ^3/uL (1.6-8.6); Neutrophils % (auto) 61.9 % (37.0-80.0); Red Blood Cells 3.32 10^6/uL (4.0-5.20); Red Cell Distribution Width 18.9 % (11.8-14.3); White Blood Cell 5.4 10^3/uL (4.4-10.8)
[2022-09-10 05:35] LABS: Calcium 8.2 mg/dL (8.5-10.1); Potassium 5.1 mmol/L (3.5-5.1)
[2022-09-10 05:37] LABS: BUN/Creatinine Ratio 33.1 (10.0-20.0)
[2022-09-10] MEDS: ACETAMINOPHEN 325 MG TAB PO PRN (06:47)
[2022-09-10] MEDS: InsuLIN REG 1unit/0.01ml Soln (100units/ml) SC SCH ×4 (06:53→20:55)
[2022-09-10] MEDS: ACCU-CHEK COMFORT CURVE STRIP VI SCH ×4 (06:54→22:00)
[2022-09-10] MEDS ORDERED: GLUCAGON EMERG KIT 1mg/1ml IV ONE (10:00)
[2022-09-10] MEDS: ASPirin-EC 81 mg tab PO SCH (10:05)
[2022-09-10 10:43] LABS: Urine Bacteria NONE SEEN /hpf (None Seen); Urine Blood TRACE /uL (Negative); Urine Mucus FEW (None Seen); Urine Specific Gravity 1.013 (1.001-1.035); Urine WBC 785 /hpf (0 - 5); Urine WBC Clumps PRESENT /hpf (None Seen)
[2022-09-10] MEDS: ONDANSETRON HCL 4 MG/2 ML VIAL IV PRN ×2 (11:54→21:53)
[2022-09-10 12:46] VITALS: BP 127/56
[2022-09-10] MEDS: HYDROcodone-ACET 5/325MG TAB PO PRN ×2 (15:37→21:54)
[2022-09-10] MEDS: SODIUM CHLORIDE 0.9% 1,000 ML IV SCH (18:44)
[2022-09-10] MEDS: ATORVASTATIN 20 MG TAB PO SCH (21:02)
[2022-09-10 22:00] VITALS: BP 151/76
[2022-09-11] MEDS: SODIUM CHLORIDE 0.9% 1,000 ML IV SCH ×2 (04:30→10:02)
[2022-09-11 05:00] VITALS: BP_SYST 115; BP_SYST 140; BP_DIAS 51; BP_DIAS 66
[2022-09-11] MEDS: InsuLIN REG 1unit/0.01ml Soln (100units/ml) SC SCH ×4 (06:11→22:10)
[2022-09-11 06:34] LABS: Basophils # (auto) 0 10 ^3/uL (0-0.2); Eosinophils # (auto) 0.2 10 ^3/uL (0-0.8); Hemoglobin 8.4 g/dL (12.2-16.2); Lymphocytes # (auto) 1.3 10 ^3/uL (0.4-5.4); Monocytes # (auto) 0.3 10 ^3/uL (0-1.3); Neutrophils # (auto) 2.9 10 ^3/uL (1.6-8.6); White Blood Cell 4.8 10^3/uL (4.4-10.8)
[2022-09-11 06:36] LABS: Basophils % (auto) 0.5 % (0.0-2.0); Eosinophils % (auto) 4.7 % (0.0-7.0); Hematocrit 26.6 % (36.0-46.0); Lymphocytes % (auto) 27.1 % (10.0-50.0); Mean Corpuscular Hgb Conc. 31.5 g/dL (32.0-36.0); Mean Corpuscular Volume 79.2 fL (80.0-100.0); Monocytes % (auto) 7.1 % (0.0-12.0); Neutrophils % (auto) 60.6 % (37.0-80.0); Nucleated Red Blood Cells % 0.1 %; Red Blood Cells 3.36 10^6/uL (4.0-5.20); Red Cell Distribution Width 18.7 % (11.8-14.3)
[2022-09-11] MEDS: ACCU-CHEK COMFORT CURVE STRIP VI SCH ×4 (06:37→22:01)
[2022-09-11 07:05] LABS: BUN/Creatinine Ratio 31.5 (10.0-20.0); Calcium 8.5 mg/dL (8.5-10.1); Potassium 4.8 mmol/L (3.5-5.1)
[2022-09-11] MEDS: ASPirin-EC 81 mg tab PO SCH (08:46)
[2022-09-11] MEDS: ONDANSETRON HCL 4 MG/2 ML VIAL IV PRN ×3 (08:47→20:49)
[2022-09-11] MEDS: HYDROcodone-ACET 5/325MG TAB PO PRN ×3 (08:47→20:49)
[2022-09-11 09:00] VITALS: BP 136/74
[2022-09-11] MEDS: SODIUM FERR GLUC 62.5MG/5ML 125 MG in SODIUM CHL 0.9% 100 ML IV SCH (12:00)
[2022-09-11] MEDS: SUCRALFATE 1 GM/10 ML ORAL SUSP PO SCH ×3 (12:14→21:59)
[2022-09-11 13:00] VITALS: BP 136/70
[2022-09-11 17:00] VITALS: BP 142/47
[2022-09-11 22:00] VITALS: BP 156/61
[2022-09-11] MEDS: busPIRone HCL 10 MG TAB PO SCH (22:00)
[2022-09-11] MEDS: CITALOPRAM HYDROBR 20 MG TAB PO SCH (22:00)
[2022-09-11] MEDS: levETIRAcetam 500 MG TAB PO SCH (22:01)
[2022-09-11] MEDS: PANTOPRAZOLE 40 MG TAB PO SCH (22:01)
[2022-09-11] MEDS: ATORVASTATIN 20 MG TAB PO SCH (22:01)
[2022-09-12 05:36] VITALS: BP 153/76
[2022-09-12] MEDS: SODIUM CHLORIDE 0.9% 1,000 ML IV SCH (06:00)
[2022-09-12 06:08] LABS: BUN/Creatinine Ratio 26.2 (10.0-20.0); Calcium 8.4 mg/dL (8.5-10.1); Potassium 4.7 mmol/L (3.5-5.1)
[2022-09-12] MEDS: ONDANSETRON HCL 4 MG/2 ML VIAL IV PRN (06:24)
[2022-09-12] MEDS: SUCRALFATE 1 GM/10 ML ORAL SUSP PO SCH ×3 (06:24→17:42)
[2022-09-12] MEDS: HYDROcodone-ACET 5/325MG TAB PO PRN ×2 (06:24→13:32)
[2022-09-12] MEDS: ACCU-CHEK COMFORT CURVE STRIP VI SCH ×3 (06:27→17:00)
[2022-09-12] MEDS: InsuLIN REG 1unit/0.01ml Soln (100units/ml) SC SCH ×3 (06:27→17:00)
[2022-09-12 06:36] LABS: Basophils # (auto) 0 10 ^3/uL (0-0.2); Eosinophils # (auto) 0.2 10 ^3/uL (0-0.8); Hemoglobin 9.1 g/dL (12.2-16.2); Lymphocytes # (auto) 1.7 10 ^3/uL (0.4-5.4); Monocytes # (auto) 0.4 10 ^3/uL (0-1.3)
[2022-09-12 06:38] LABS: Basophils % (auto) 0.5 % (0.0-2.0); Eosinophils % (auto) 4.8 % (0.0-7.0); Hematocrit 28.4 % (36.0-46.0); Lymphocytes % (auto) 36.6 % (10.0-50.0); Mean Corpuscular Hemoglobin 25.2 pg (28.0-32.0); Mean Corpuscular Hgb Conc. 32.1 g/dL (32.0-36.0); Mean Corpuscular Volume 78.7 fL (80.0-100.0); Monocytes % (auto) 8.2 % (0.0-12.0); Neutrophils # (auto) 2.4 10 ^3/uL (1.6-8.6); Neutrophils % (auto) 49.9 % (37.0-80.0); Nucleated Red Blood Cells % 0.2 %; Red Cell Distribution Width 18.9 % (11.8-14.3); White Blood Cell 4.7 10^3/uL (4.4-10.8)
[2022-09-12] MEDS ORDERED: LEVOTHYROXINE SODIUM 50 MCG TAB PO SCH (07:00)
[2022-09-12 09:00] VITALS: BP 155/49
[2022-09-12] MEDS: CITALOPRAM HYDROBR 20 MG TAB PO SCH (09:23)
[2022-09-12] MEDS: busPIRone HCL 10 MG TAB PO SCH (09:23)
[2022-09-12] MEDS: levETIRAcetam 500 MG TAB PO SCH (09:23)
[2022-09-12] MEDS: ASPirin-EC 81 mg tab PO SCH (09:23)
[2022-09-12] MEDS: PANTOPRAZOLE 40 MG TAB PO SCH (09:24)
[2022-09-12] MEDS: ACETAMINOPHEN 325 MG TAB PO PRN (11:18)
[2022-09-12] MEDS: SODIUM FERR GLUC 62.5MG/5ML 125 MG in SODIUM CHL 0.9% 100 ML IV SCH (12:29)
[2022-09-12 13:00] VITALS: BP 153/71
[2022-09-12 15:30] VITALS: BP 138/75
[2022-09-12 17:00] VITALS: BP 156/52
== END 2022-09-12 18:40 | disposition home health service (06) | DRG 205 ==
LOC: ER 15:40 → EDBD 15:40 → TELE 23:10 → TELE-CENTR 09-10 13:13
PROVIDERS: ADMIT Nurse Practitioner Family; ATTEND Nurse Practitioner Family
DX: M94.0 Chondrocostal junction syndrome [Tietze] (principal); N17.0 Acute kidney failure with tubular necrosis; N39.0 Urinary tract infection, site not specified; I48.0 Paroxysmal atrial fibrillation; I49.9 Cardiac arrhythmia, unspecified; T44.7X5A Adverse effect of beta-adrenoreceptor antagonists, initial encounter; E87.5 Hyperkalemia; E11.22 Type 2 diabetes mellitus with diabetic chronic kidney disease; G89.29 Other chronic pain; J44.9 Chronic obstructive pulmonary disease, unspecified; Z20.822 Contact with and (suspected) exposure to COVID-19; G40.909 Epilepsy, unspecified, not intractable, without status epilepticus; E78.5 Hyperlipidemia, unspecified; E03.9 Hypothyroidism, unspecified; Z99.81 Dependence on supplemental oxygen; Z87.11 Personal history of peptic ulcer disease; Z90.710 Acquired absence of both cervix and uterus; Z83.3 Family history of diabetes mellitus; Z82.49 Family history of ischemic heart disease and other diseases of the circulatory system; Z80.0 Family history of malignant neoplasm of digestive organs; Z74.01 Bed confinement status; I12.9 Hypertensive chronic kidney disease with stage 1 through stage 4 chronic kidney disease, or unspecified chronic kidney disease; N18.9 Chronic kidney disease, unspecified
CPT/HCPCS: 36415; 36600; 71045; 76775; 80048; 80053; 81001; 82805; 82962; 83605; 83735; 83880; 84439; 84443; 84484; 85025; 87040; 87086; 87088; 87340; 87426; 93005; 96361; 96365; 96375; G0378; J1815; J2405

== ENCOUNTER 2023-03-11 05:10 | Emergency (ER) | payer OTHER, MEDICAID ==
[~2023-03-11] VITALS: Ht 167.6 cm; Wt 75.0 kg
[~2023-03-11 05:10] MED LIST changes: -ACET-1156 PO; +ACET-1881 PO; -LEVE500T32 PO; +LEVE500T40 PO; -METO-6 PO
[2023-03-11 05:49] VITALS: PULSE 84; RESP 12; O2SAT 100
[2023-03-11 06:45] LABS: Alanine Aminotransferase 35 U/L (7-40); Alkaline Phosphatase 111 U/L (46-116); Anion Gap 4 (5-15); Aspartate Aminotransferase 31 U/L (13-40); BUN/Creatinine Ratio 22.6 (10.0-20.0); Blood Urea Nitrogen 21 mg/dL (9-23); Calcium 8.7 mg/dL (8.7-10.4); Carbon Dioxide 28 mmol/L (20-30); Chloride 101 mmol/L (98-107); Glucose 219 mg/dL (74-106); Potassium 4.6 mmol/L (3.5-5.1); Sodium 133 mmol/L (136-145)
[2023-03-11] MEDS ORDERED: MORPHINE SULFATE 4 MG/ML SYR/VIAL IV ONE (06:45)
[2023-03-11] MEDS ORDERED: ONDANSETRON HCL 4 MG/2 ML VIAL IV ONE (06:45)
[2023-03-11 06:46] LABS: Albumin 4.5 g/dL (3.2-4.8); Bilirubin, Total 0.3 mg/dL (0.2-1.0); Total Protein 7.1 g/dL (5.7-8.2)
[2023-03-11 06:51] LABS: Basophils # (auto) 0 10 ^3/uL (0-0.2); Basophils % (auto) 0.3 % (0.0-2.0); Eosinophils # (auto) 0.2 10 ^3/uL (0-0.8); Eosinophils % (auto) 2.4 % (0.0-7.0); Hematocrit 34.5 % (36.0-46.0); Lymphocytes # (auto) 0.8 10 ^3/uL (0.4-5.4); Lymphocytes % (auto) 11.8 % (10.0-50.0); Mean Corpuscular Hemoglobin 29.2 pg (28.0-32.0); Mean Corpuscular Hgb Conc. 31.9 g/dL (32.0-36.0); Mean Corpuscular Volume 91.6 fL (80.0-100.0); Monocytes # (auto) 0.7 10 ^3/uL (0-1.3); Monocytes % (auto) 11.4 % (0.0-12.0); Neutrophils # (auto) 4.7 10 ^3/uL (1.6-8.6); Neutrophils % (auto) 74.1 % (37.0-80.0); Nucleated Red Blood Cells % 0.1 %; Red Blood Cells 3.77 10^6/uL (4.0-5.20); Red Cell Distribution Width 13.2 % (11.8-14.3); White Blood Cell 6.4 10^3/uL (4.4-10.8)
[2023-03-11] MEDS ORDERED: SODIUM CHLORIDE 0.9% 1,000 ML IV ONE (07:15)
[2023-03-11] MEDS ORDERED: ASPirin 300 MG RECTAL SUPP PR ONE (07:30)
[2023-03-11 07:53] LABS: INR 0.97 (0.9-1.15); Prothrombin Time 10.2 sec (9.3-11.8)
[2023-03-11 08:00] VITALS: PULSE 82; RESP 14; O2SAT 99
[2023-03-11 11:55] LABS: COVID19 ANTIGEN SOFIA FIA NEGATIVE (NEGATIVE)
[2023-03-11 12:30] LABS: Urine Bacteria NONE SEEN /hpf (None Seen); Urine Blood 3+ /uL (Negative); Urine Clarity CLOUDY (Clear); Urine Color Yellow (Yellow); Urine Protein, UAD 2+ (Negative); Urine Specific Gravity 1.018 (1.001-1.035); Urine Urobilinogen Normal (Negative); Urine WBC 2381 /hpf (0 - 5)
[2023-03-11 13:43] VITALS: BP 122/49; PULSE 81; RESP 11; TEMP 98.2; O2SAT 100
== END 2023-03-11 14:41 | disposition short-term general hospital (02) ==
LOC: ER 05:10 → EDSEX 05:10 → EDBD 05:10 → ER 14:41
DX: E86.0 Dehydration (principal); R10.9 Unspecified abdominal pain; R77.8 Other specified abnormalities of plasma proteins; K21.9 Gastro-esophageal reflux disease without esophagitis; E78.5 Hyperlipidemia, unspecified; I13.2 Hypertensive heart and chronic kidney disease with heart failure and with stage 5 chronic kidney disease, or end stage renal disease; E11.22 Type 2 diabetes mellitus with diabetic chronic kidney disease; N18.6 End stage renal disease; I50.89 Other heart failure; Z79.84 Long term (current) use of oral hypoglycemic drugs; Z79.899 Other long term (current) drug therapy; Z90.49 Acquired absence of other specified parts of digestive tract; Z90.710 Acquired absence of both cervix and uterus; Z98.890 Other specified postprocedural states; Z20.822 Contact with and (suspected) exposure to COVID-19
CPT/HCPCS: 36415; 70450; 71045; 74176; 80053; 81001; 83605; 83690; 83880; 84484; 85025; 85610; 87426; 93005; 96361; 96374; 96375; 99285; J2270; J2405; J7030

== ENCOUNTER 2023-03-16 22:28 | Emergency (ER) | payer OTHER, MEDICAID ==
[~2023-03-16] VITALS: Ht 162.6 cm; Wt 113.0 kg
[2023-03-16 23:53] LABS: Basophils # (auto) 0 10 ^3/uL (0-0.2); Basophils % (auto) 0.8 % (0.0-2.0); Eosinophils # (auto) 0.2 10 ^3/uL (0-0.8); Eosinophils % (auto) 3.4 % (0.0-7.0); Hemoglobin 10.4 g/dL (12.2-16.2); Lymphocytes % (auto) 19.7 % (10.0-50.0); Mean Corpuscular Hemoglobin 29.3 pg (28.0-32.0); Mean Corpuscular Hgb Conc. 32.6 g/dL (32.0-36.0); Mean Corpuscular Volume 89.9 fL (80.0-100.0); Monocytes # (auto) 0.6 10 ^3/uL (0-1.3); Monocytes % (auto) 11.5 % (0.0-12.0); Neutrophils # (auto) 3.3 10 ^3/uL (1.6-8.6); Neutrophils % (auto) 64.6 % (37.0-80.0); Red Blood Cells 3.56 10^6/uL (4.0-5.20); Red Cell Distribution Width 13.5 % (11.8-14.3); White Blood Cell 5.1 10^3/uL (4.4-10.8)
[2023-03-17 00:08] LABS: Alanine Aminotransferase 34 U/L (7-40); Alkaline Phosphatase 95 U/L (46-116); Anion Gap 4 (5-15); Aspartate Aminotransferase 31 U/L (13-40); Blood Urea Nitrogen 26 mg/dL (9-23); Calcium 8.5 mg/dL (8.7-10.4); Carbon Dioxide 27 mmol/L (20-30); Chloride 104 mmol/L (98-107); Glucose 172 mg/dL (74-106); Potassium 4.3 mmol/L (3.5-5.1); Sodium 135 mmol/L (136-145)
[2023-03-17 00:09] LABS: Albumin 3.8 g/dL (3.2-4.8); Bilirubin, Total < 0.2 mg/dL (0.2-1.0); Total Protein 6.5 g/dL (5.7-8.2)
[2023-03-17 00:20] VITALS: PULSE 75; RESP 14; O2SAT 100
[2023-03-17 01:19] LABS: Urine Bacteria NONE SEEN /hpf (None Seen); Urine Blood 2+ /uL (Negative); Urine Clarity CLOUDY (Clear); Urine Color Yellow (Yellow); Urine Protein, UAD 2+ (Negative); Urine Specific Gravity 1.017 (1.001-1.035); Urine Urobilinogen Normal (Negative); Urine WBC 2734 /hpf (0 - 5); Urine WBC Clumps PRESENT /hpf (None Seen)
[2023-03-17] MEDS ORDERED: ONDANSETRON HCL 4 MG/2 ML VIAL IV ONE ×2 (01:30→16:00)
[2023-03-17] MEDS ORDERED: MORPHINE SULFATE 4 MG/ML SYR/VIAL IV ONE (02:45)
[2023-03-17] MEDS ORDERED: cefTRIAXone SOD 1,000 MG VL IV ONE (02:45)
[2023-03-17 07:50] VITALS: PULSE 89; RESP 12; O2SAT 98
[2023-03-17] MEDS: HYDROcodone-ACET 10/325MG TAB PO PRN ×2 (09:39→20:19)
[2023-03-17] MEDS: ACCU-CHEK COMFORT CURVE STRIP VI SCH ×3 (10:30→18:07)
[2023-03-17] MEDS ORDERED: glipiZIDE 5 MG TAB PO SCH ×2 (11:00→22:00)
[2023-03-17] MEDS ORDERED: ACCU-CHEK COMFORT CURVE STRIP VI SCH (11:30)
[2023-03-17] MEDS: levETIRAcetam 500 MG TAB PO SCH ×2 (11:46→22:53)
[2023-03-17] MEDS: LEVOTHYROXINE SODIUM 25 MCG TAB PO SCH (11:48)
[2023-03-17] MEDS: INSULIN LANTUS (GLARGINE) 1 /0.01ml (100units/ml) SC SCH (11:50)
[2023-03-17] MEDS ORDERED: cefTRIAXone 1GM/50ML D5W 50 ML IV ONE (14:30)
[2023-03-17] MEDS ORDERED: LEVO500T91 PO (14:50)
[2023-03-17 19:30] VITALS: PULSE 107; RESP 13; O2SAT 96
[2023-03-17] MEDS ORDERED: busPIRone HCL 10 MG TAB PO SCH (22:00)
[2023-03-17] MEDS ORDERED: levETIRAcetam 500 MG TAB PO SCH (22:00)
[2023-03-17] MEDS ORDERED: DEXTROSE (50%) 50ML SYRG IV PRN (22:30)
[2023-03-17] MEDS: CITALOPRAM HYDROBR 20 MG TAB PO SCH (22:54)
[2023-03-17] MEDS: busPIRone HCL 10 MG TAB PO SCH (22:54)
[2023-03-18] MEDS ORDERED: ONDANSETRON HCL 4 MG/2 ML VIAL ONE (03:59)
[2023-03-18] MEDS ORDERED: ONDANSETRON HCL 4 MG/2 ML VIAL IV ONE ×2 (04:00→12:30)
[2023-03-18] MEDS ORDERED: PANTOPRAZOLE 40 MG TAB PO ONE (05:15)
[2023-03-18] MEDS: ACCU-CHEK COMFORT CURVE STRIP VI SCH ×3 (06:33→18:14)
[2023-03-18] MEDS: LEVOTHYROXINE SODIUM 25 MCG TAB PO SCH (06:44)
[2023-03-18] MEDS: InsuLIN REG 1unit/0.01ml Soln (100units/ml) SC SCH ×3 (06:45→18:21)
[2023-03-18] MEDS: INSULIN LANTUS (GLARGINE) 1 /0.01ml (100units/ml) SC SCH (06:46)
[2023-03-18] MEDS ORDERED: INSULIN LANTUS (GLARGINE) 1 /0.01ml (100units/ml) SC SCH (07:00)
[2023-03-18] MEDS ORDERED: LEVOTHYROXINE SODIUM 25 MCG TAB PO SCH (07:00)
[2023-03-18 07:30] VITALS: PULSE 94; RESP 14; O2SAT 97
[2023-03-18] MEDS: busPIRone HCL 10 MG TAB PO SCH (10:11)
[2023-03-18] MEDS: CITALOPRAM HYDROBR 20 MG TAB PO SCH (10:12)
[2023-03-18] MEDS: levETIRAcetam 500 MG TAB PO SCH (10:12)
[2023-03-18] MEDS: HYDROcodone-ACET 10/325MG TAB PO PRN (12:35)
[2023-03-18 19:30] VITALS: BP 152/55; PULSE 89; RESP 15; TEMP 98.9; O2SAT 98
[2023-03-18] MEDS ORDERED: PANTOPRAZOLE 40 MG TAB PO SCH (22:00)
== END 2023-03-18 20:07 | disposition home or self-care (01) ==
LOC: EDBD 22:28 → ER 22:33
DX: N39.0 Urinary tract infection, site not specified (principal); E05.00 Thyrotoxicosis with diffuse goiter without thyrotoxic crisis or storm; I13.2 Hypertensive heart and chronic kidney disease with heart failure and with stage 5 chronic kidney disease, or end stage renal disease; E11.22 Type 2 diabetes mellitus with diabetic chronic kidney disease; N18.6 End stage renal disease; I50.9 Heart failure, unspecified; I48.91 Unspecified atrial fibrillation; J44.9 Chronic obstructive pulmonary disease, unspecified; E78.5 Hyperlipidemia, unspecified; E03.9 Hypothyroidism, unspecified; Z99.2 Dependence on renal dialysis; Z90.49 Acquired absence of other specified parts of digestive tract; Z90.710 Acquired absence of both cervix and uterus; Z79.4 Long term (current) use of insulin; Z79.899 Other long term (current) drug therapy
CPT/HCPCS: 36415; 71045; 74176; 80053; 81001; 82962; 83880; 84484; 85025; 96365; 96366; 96372; 96375; 96376; 99285; J0696; J1815; J2270; J2405

== ENCOUNTER 2023-04-14 09:16 | Inpatient (IN) | payer OTHER, MEDICAID ==
[~2023-04-14] VITALS: Ht 154.9 cm; Wt 79.5 kg
[~2023-04-14 09:16] MED LIST changes: +LEVO500T91 PO
[2023-04-14] MEDS ORDERED: ONDANSETRON HCL 4 MG/2 ML VIAL IV ONE ×2 (09:30→20:30)
[2023-04-14] MEDS ORDERED: SODIUM CHLORIDE 0.9% 1,000 ML IV ONE ×2 (09:30)
[2023-04-14 09:59] LABS: Basophils # (auto) 0 10 ^3/uL (0-0.2); Basophils % (auto) 0.6 % (0.0-2.0); Eosinophils # (auto) 0.2 10 ^3/uL (0-0.8); Eosinophils % (auto) 3.5 % (0.0-7.0); Hematocrit 36.7 % (36.0-46.0); Hemoglobin 11.8 g/dL (12.2-16.2); Lymphocytes # (auto) 1.3 10 ^3/uL (0.4-5.4); Lymphocytes % (auto) 18.7 % (10.0-50.0); Mean Corpuscular Hemoglobin 28.9 pg (28.0-32.0); Mean Corpuscular Hgb Conc. 32.1 g/dL (32.0-36.0); Mean Corpuscular Volume 90.1 fL (80.0-100.0); Monocytes # (auto) 0.4 10 ^3/uL (0-1.3); Monocytes % (auto) 6.1 % (0.0-12.0); Neutrophils % (auto) 71.1 % (37.0-80.0); Nucleated Red Blood Cells % 0.3 %; Red Blood Cells 4.07 10^6/uL (4.0-5.20); Red Cell Distribution Width 13.4 % (11.8-14.3)
[2023-04-14 10:21] LABS: Alanine Aminotransferase 24 U/L (7-40); Albumin 4.2 g/dL (3.2-4.8); Alkaline Phosphatase 100 U/L (46-116); Anion Gap 4 (5-15); Aspartate Aminotransferase 29 U/L (13-40); BUN/Creatinine Ratio 23.2 (10.0-20.0); Bilirubin, Total 0.2 mg/dL (0.2-1.0); Blood Urea Nitrogen 19 mg/dL (9-23); Calcium 9.2 mg/dL (8.5-10.1); Carbon Dioxide 29 mmol/L (20-30); Chloride 101 mmol/L (98-107); Glucose 213 mg/dL (74-106); Potassium 5.2 mmol/L (3.5-5.1); Sodium 134 mmol/L (136-145); Total Protein 6.7 g/dL (5.7-8.2)
[2023-04-14 10:57] VITALS: PULSE 86; RESP 18; O2SAT 98
[2023-04-14 11:23] LABS: Urine Bacteria NONE SEEN /hpf (None Seen); Urine Blood 3+ /uL (Negative); Urine Clarity CLOUDY (Clear); Urine Color Colorless (Yellow); Urine Protein, UAD 2+ (Negative); Urine Specific Gravity 1.016 (1.001-1.035); Urine Urobilinogen Normal (Negative); Urine WBC 1850 /hpf (0 - 5); Urine WBC Clumps PRESENT /hpf (None Seen); Urine pH 7.5 (5.0-8.0)
[2023-04-14] MEDS ORDERED: SODIUM BICARBONATE 8.4% INJ 50ML SYRINGE IV ONE (12:45)
[2023-04-14] MEDS ORDERED: InsuLIN REG 1unit/0.01ml Soln (100units/ml) IV ONE (12:45)
[2023-04-14] MEDS ORDERED: CALCIUM GLUC 1,000mg/50ml-NS 50 ML IV ONE (12:45)
[2023-04-14] MEDS ORDERED: cefTRIAXone 1GM/50ML D5W 50 ML IV ONE (13:00)
[2023-04-14] MEDS ORDERED: HYDROcodone-ACET 10/325MG TAB PO ONE (13:45)
[2023-04-14 14:07] LABS: INR 0.96 (0.9-1.15); Partial Thromboplastin Time 25.3 SEC (24.5-34.5); Prothrombin Time 10.1 sec (9.3-11.8)
[2023-04-14] MEDS ORDERED: ALBUTEROL SULF 2.5 MG/0.5ML(0.5%) NEB SOLN NEB PRN (14:30)
[2023-04-14] MEDS: levETIRAcetam 500 MG TAB PO SCH ×2 (14:30→22:36)
[2023-04-14] MEDS ORDERED: PANTOPRAZOLE 40 MG TAB PO ONE (14:30)
[2023-04-14] MEDS ORDERED: DEXTROSE (50%) 50ML SYRG IV PRN (14:30)
[2023-04-14] MEDS: levoFLOXacin 500 MG TAB PO SCH (15:06)
[2023-04-14] MEDS ORDERED: DEXTROSE (50%) 50ML SYRG IV ONE ×2 (15:30→17:45)
[2023-04-14 16:22] VITALS: BP 154/54; PULSE 89; RESP 12; TEMP 98.4; O2SAT 98
[2023-04-14] MEDS: InsuLIN REG 1unit/0.01ml Soln (100units/ml) SC SCH ×2 (17:00→22:45)
[2023-04-14] MEDS: ACCU-CHEK COMFORT CURVE STRIP VI SCH ×2 (17:12→22:36)
[2023-04-14 19:30] VITALS: PULSE 93; RESP 12; O2SAT 97
[2023-04-14 20:00] VITALS: O2SAT 97
[2023-04-14] MEDS ORDERED: MORPHINE SULFATE 4 MG/ML SYR/VIAL IV ONE (20:30)
[2023-04-14] MEDS: ACETAMINOPHEN 325 MG TAB PO PRN (22:36)
[2023-04-15] MEDS: ACETAMINOPHEN 325 MG TAB PO PRN (03:04)
[2023-04-15] MEDS ORDERED: ONDANSETRON HCL 4 MG/2 ML VIAL IV ONE (04:15)
[2023-04-15] MEDS ORDERED: fentaNYL CITRATE 100 MCG/2 ML VL IV ONE (04:15)
[2023-04-15 06:42] VITALS: O2SAT 99
[2023-04-15] MEDS ORDERED: hydrALAZINE HCL 20 MG/ML VL IV ONE (06:45)
[2023-04-15] MEDS: ACCU-CHEK COMFORT CURVE STRIP VI SCH ×4 (07:12→21:25)
[2023-04-15] MEDS ORDERED: METOCLOPRAMIDE HCL 5MG/ml INJ 2ml VIAL IV ONE (07:15)
[2023-04-15] MEDS ORDERED: diphenhdrAMINE HCL 50 MG/1 ML VL IV ONE (07:15)
[2023-04-15] MEDS: InsuLIN REG 1unit/0.01ml Soln (100units/ml) SC SCH ×4 (07:19→21:20)
[2023-04-15] MEDS: LEVOTHYROXINE SODIUM 25 MCG TAB PO SCH (07:19)
[2023-04-15 07:42] VITALS: PULSE 111; RESP 16; O2SAT 96
[2023-04-15] MEDS: levETIRAcetam 500 MG TAB PO SCH ×2 (09:38→21:20)
[2023-04-15] MEDS: CITALOPRAM HYDROBR 20 MG TAB PO SCH (09:38)
[2023-04-15] MEDS: levoFLOXacin 500 MG TAB PO SCH (09:39)
[2023-04-15] MEDS ORDERED: traMADol HCL 50 MG TAB PO PRN (10:00)
[2023-04-15] MEDS: METOPROLOL TARTRATE 25 MG TAB PO SCH ×2 (11:46→21:19)
[2023-04-15] MEDS ORDERED: HYDROcodone-ACET 5/325MG TAB PO PRN (13:15)
[2023-04-15] MEDS: ONDANSETRON HCL 4 MG/2 ML VIAL IV PRN ×3 (14:05→22:32)
[2023-04-15] MEDS ORDERED: DOCUSATE SOD 100 MG CAP PO PRN (17:00)
[2023-04-15] MEDS ORDERED: NITROGLYCERIN 0.4 MG SL TAB SL PRN (17:00)
[2023-04-15] MEDS ORDERED: MORPHINE SULFATE INJ 2 MG/ml SYRG IV PRN (17:00)
[2023-04-15] MEDS: INSULIN LANTUS (GLARGINE) 1 /0.01ml (100units/ml) SC SCH (18:47)
[2023-04-15 19:00] VITALS: PULSE 81; RESP 20; O2SAT 94
[2023-04-15 19:30] VITALS: PULSE 80; RESP 20; O2SAT 94
[2023-04-15] MEDS: MORPHINE SULFATE INJ 2 MG/ml SYRG IV PRN (20:21)
[2023-04-15] MEDS: busPIRone HCL 10 MG TAB PO SCH (21:19)
[2023-04-15] MEDS: PANTOPRAZOLE 40 MG TAB PO SCH (21:20)
[2023-04-15 22:00] VITALS: BP 162/62; PULSE 96; RESP 17; TEMP 97.8; O2SAT 97
[2023-04-15] MEDS ORDERED: busPIRone HCL 10 MG TAB PO SCH (22:00)
[2023-04-15] MEDS: HYDROcodone-ACET 5/325MG TAB PO PRN (22:32)
[2023-04-15 22:35] VITALS: O2SAT 95
[2023-04-16] VITALS (8 sets, daily range): BP systolic 91–174; BP diastolic 52–86; PULSE 70–90; RESP 16–18; TEMP 97.7–98.5; O2SAT 91–99
[2023-04-16] MEDS: HYDROcodone-ACET 5/325MG TAB PO PRN ×4 (00:52→21:26)
[2023-04-16] MEDS: MORPHINE SULFATE INJ 2 MG/ml SYRG IV PRN ×3 (01:12→16:21)
[2023-04-16] MEDS: ONDANSETRON HCL 4 MG/2 ML VIAL IV PRN ×3 (04:24→17:26)
[2023-04-16] MEDS: LEVOTHYROXINE SODIUM 25 MCG TAB PO SCH (06:36)
[2023-04-16] MEDS: ACCU-CHEK COMFORT CURVE STRIP VI SCH ×4 (06:43→23:48)
[2023-04-16] MEDS: InsuLIN REG 1unit/0.01ml Soln (100units/ml) SC SCH ×4 (06:43→23:46)
[2023-04-16] MEDS: PANTOPRAZOLE 40 MG TAB PO SCH ×2 (09:20→21:22)
[2023-04-16] MEDS: levETIRAcetam 500 MG TAB PO SCH ×2 (09:20→21:22)
[2023-04-16] MEDS: busPIRone HCL 10 MG TAB PO SCH ×2 (09:21→21:22)
[2023-04-16] MEDS: CITALOPRAM HYDROBR 20 MG TAB PO SCH (09:26)
[2023-04-16] MEDS: METOPROLOL TARTRATE 25 MG TAB PO SCH ×2 (09:26→21:26)
[2023-04-16] MEDS: levoFLOXacin 500 MG TAB PO SCH (09:26)
[2023-04-16] MEDS: INSULIN LANTUS (GLARGINE) 1 /0.01ml (100units/ml) SC SCH (09:53)
[2023-04-17] VITALS (14 sets, daily range): BP systolic 128–178; BP diastolic 59–78; PULSE 75–87; RESP 17–22; TEMP 97.6–98.2; O2SAT 90–100
[2023-04-17] MEDS: LEVOTHYROXINE SODIUM 25 MCG TAB PO SCH (06:52)
[2023-04-17] MEDS: InsuLIN REG 1unit/0.01ml Soln (100units/ml) SC SCH ×4 (06:53→21:25)
[2023-04-17] MEDS: ACCU-CHEK COMFORT CURVE STRIP VI SCH ×4 (06:54→21:45)
[2023-04-17] MEDS: busPIRone HCL 10 MG TAB PO SCH ×2 (09:31→21:24)
[2023-04-17] MEDS: levETIRAcetam 500 MG TAB PO SCH ×2 (09:32→21:25)
[2023-04-17] MEDS: CITALOPRAM HYDROBR 20 MG TAB PO SCH (09:32)
[2023-04-17] MEDS: METOPROLOL TARTRATE 25 MG TAB PO SCH (09:32)
[2023-04-17] MEDS: levoFLOXacin 500 MG TAB PO SCH (09:33)
[2023-04-17] MEDS: PANTOPRAZOLE 40 MG TAB PO SCH ×2 (09:33→21:25)
[2023-04-17] MEDS: INSULIN LANTUS (GLARGINE) 1 /0.01ml (100units/ml) SC SCH (09:47)
[2023-04-17] MEDS: ONDANSETRON HCL 4 MG/2 ML VIAL IV PRN ×3 (11:16→20:42)
[2023-04-17] MEDS: MORPHINE SULFATE INJ 2 MG/ml SYRG IV PRN ×2 (11:17→16:36)
[2023-04-17] MEDS ORDERED: hydrALAZINE HCL 20 MG/ML VL IV PRN (16:30)
[2023-04-17] MEDS: HYDROcodone-ACET 5/325MG TAB PO PRN (20:43)
[2023-04-17] MEDS: METOPROLOL TARTRATE 50 MG TAB PO SCH (21:25)
[2023-04-18] MEDS: ONDANSETRON HCL 4 MG/2 ML VIAL IV PRN ×4 (01:42→23:52)
[2023-04-18] MEDS: MORPHINE SULFATE INJ 2 MG/ml SYRG IV PRN ×4 (01:43→23:53)
[2023-04-18 05:00] VITALS: BP 155/45; PULSE 78; RESP 22; TEMP 98.2; O2SAT 100
[2023-04-18] MEDS: InsuLIN REG 1unit/0.01ml Soln (100units/ml) SC SCH ×4 (06:28→23:16)
[2023-04-18] MEDS: HYDROcodone-ACET 5/325MG TAB PO PRN ×2 (06:28→20:30)
[2023-04-18] MEDS: LEVOTHYROXINE SODIUM 25 MCG TAB PO SCH (06:28)
[2023-04-18] MEDS: ACCU-CHEK COMFORT CURVE STRIP VI SCH ×4 (06:35→22:54)
[2023-04-18 06:49] VITALS: O2SAT 100
[2023-04-18 10:51] VITALS: BP 149/78; PULSE 83; RESP 20; TEMP 98; O2SAT 99
[2023-04-18] MEDS: METOPROLOL TARTRATE 50 MG TAB PO SCH ×2 (11:57→22:54)
[2023-04-18] MEDS: PANTOPRAZOLE 40 MG TAB PO SCH ×2 (11:57→22:53)
[2023-04-18] MEDS: levETIRAcetam 500 MG TAB PO SCH ×2 (11:57→22:53)
[2023-04-18] MEDS: levoFLOXacin 500 MG TAB PO SCH (11:58)
[2023-04-18] MEDS: busPIRone HCL 10 MG TAB PO SCH ×2 (11:58→22:53)
[2023-04-18] MEDS: CITALOPRAM HYDROBR 20 MG TAB PO SCH (11:59)
[2023-04-18] MEDS: INSULIN LANTUS (GLARGINE) 1 /0.01ml (100units/ml) SC SCH (12:40)
[2023-04-18 13:02] VITALS: BP 139/64; PULSE 82; RESP 19; TEMP 97.5; O2SAT 95
[2023-04-18 20:00] VITALS: PULSE 97; RESP 17; O2SAT 99
[2023-04-18 22:00] VITALS: BP 163/67; PULSE 91; RESP 22; TEMP 98.2; O2SAT 99
[2023-04-19] VITALS (7 sets, daily range): BP systolic 116–147; BP diastolic 43–75; PULSE 65–75; RESP 16–19; TEMP 97.5–98.5; O2SAT 93–100
[2023-04-19] MEDS ORDERED: MELATONIN 5 MG TAB PO ONE (00:45)
[2023-04-19] MEDS: LEVOTHYROXINE SODIUM 25 MCG TAB PO SCH (06:05)
[2023-04-19] MEDS: ACCU-CHEK COMFORT CURVE STRIP VI SCH ×4 (06:06→22:25)
[2023-04-19] MEDS: InsuLIN REG 1unit/0.01ml Soln (100units/ml) SC SCH ×4 (06:14→22:52)
[2023-04-19] MEDS: CITALOPRAM HYDROBR 20 MG TAB PO SCH (09:46)
[2023-04-19] MEDS: ONDANSETRON HCL 4 MG/2 ML VIAL IV PRN ×2 (09:47→19:34)
[2023-04-19] MEDS: MORPHINE SULFATE INJ 2 MG/ml SYRG IV PRN ×2 (09:48→19:35)
[2023-04-19] MEDS: PANTOPRAZOLE 40 MG TAB PO SCH ×2 (09:48→22:24)
[2023-04-19] MEDS: METOPROLOL TARTRATE 50 MG TAB PO SCH ×2 (09:48→22:25)
[2023-04-19] MEDS: levETIRAcetam 500 MG TAB PO SCH ×2 (09:48→22:24)
[2023-04-19] MEDS: levoFLOXacin 500 MG TAB PO SCH (09:48)
[2023-04-19] MEDS: busPIRone HCL 10 MG TAB PO SCH ×2 (09:48→22:25)
[2023-04-19] MEDS: INSULIN LANTUS (GLARGINE) 1 /0.01ml (100units/ml) SC SCH (09:57)
[2023-04-19] MEDS: HYDROcodone-ACET 5/325MG TAB PO PRN (13:37)
[2023-04-20] MEDS: ONDANSETRON HCL 4 MG/2 ML VIAL IV PRN (01:07)
[2023-04-20] MEDS: HYDROcodone-ACET 5/325MG TAB PO PRN (01:07)
[2023-04-20 05:00] VITALS: BP 131/49; PULSE 69; RESP 16; TEMP 97.9; O2SAT 98
[2023-04-20] MEDS: ACCU-CHEK COMFORT CURVE STRIP VI SCH (06:32)
[2023-04-20] MEDS: LEVOTHYROXINE SODIUM 25 MCG TAB PO SCH (06:32)
[2023-04-20] MEDS: InsuLIN REG 1unit/0.01ml Soln (100units/ml) SC SCH (06:37)
== END 2023-04-20 08:47 | disposition hospice, home (50) | DRG 690 ==
LOC: ER 09:16 → EDBD 09:16 → OVERFLOW 04-15 16:54 → WEST WING 04-15 18:32
PROVIDERS: ADMIT Nurse Practitioner Acute Care; ATTEND Nurse Practitioner Acute Care
DX: N30.90 Cystitis, unspecified without hematuria (principal); I13.2 Hypertensive heart and chronic kidney disease with heart failure and with stage 5 chronic kidney disease, or end stage renal disease; I48.20 Chronic atrial fibrillation, unspecified; K44.9 Diaphragmatic hernia without obstruction or gangrene; K52.9 Noninfective gastroenteritis and colitis, unspecified; E87.5 Hyperkalemia; J44.9 Chronic obstructive pulmonary disease, unspecified; E11.65 Type 2 diabetes mellitus with hyperglycemia; K21.9 Gastro-esophageal reflux disease without esophagitis; E03.9 Hypothyroidism, unspecified; E11.22 Type 2 diabetes mellitus with diabetic chronic kidney disease; Z60.9 Problem related to social environment, unspecified; I50.9 Heart failure, unspecified; G89.29 Other chronic pain; M47.9 Spondylosis, unspecified; M54.50 Low back pain, unspecified; G40.909 Epilepsy, unspecified, not intractable, without status epilepticus; F32.A Depression, unspecified; Z79.1 Long term (current) use of non-steroidal anti-inflammatories (NSAID); Z79.899 Other long term (current) drug therapy; Z80.0 Family history of malignant neoplasm of digestive organs; Z83.3 Family history of diabetes mellitus; Z87.11 Personal history of peptic ulcer disease; Z90.710 Acquired absence of both cervix and uterus; Z90.49 Acquired absence of other specified parts of digestive tract; Z74.01 Bed confinement status; Z79.4 Long term (current) use of insulin; Z79.01 Long term (current) use of anticoagulants; Z82.49 Family history of ischemic heart disease and other diseases of the circulatory system
CPT/HCPCS: 36415; 71045; 74176; 80053; 81001; 82962; 83605; 84132; 84484; 85025; 85610; 85730; 87040; 87086; 87088; 93005; 99291; G0378; J0696; J1815; J2405